=== PATIENT | female | born 1960 | race Caucasian/White ===

== ENCOUNTER 2017-01-18 14:26 | Inpatient (IN) | payer MEDICAID, SELFPAY ==
[2017-01-18] MEDS ORDERED: Sodium Chloride 0.9% 10 ML Syringe FLUSH PRN ×2 (14:38→16:30)
[2017-01-18] MEDS ORDERED: Sodium Chloride 0.9% 2.5 ML Syringe FLUSH PRN ×2 (14:38→16:30)
[2017-01-18] MEDS ORDERED: Albuterol/Ipratropium 3.0-0.5 MG/3 ML Neb Soln ONE (14:42)
[2017-01-18] MEDS ORDERED: Sodium Chloride 0.9% 500 ML IV SCH (14:45)
[2017-01-18] MEDS: Albuterol/Ipratropium 3.0-0.5 MG/3 ML Neb Soln NEB ONE (14:46)
--- NOTE | 2017-01-18 14:47 | EDM.PDOC ---
ED HISTORY OF PRESENT ILLNESS - General Chief Complaint: Respiratory Problem Stated Complaint: SHORTNESS OF BREATH Time Seen by Provider: 01/18/17 14:30 - History of Present Illness INITIAL COMMENTS - FREE TEXT/NARRATIVE: HISTORY AND PHYSICAL: History of present illness: The patient is a 56-year-old female with a history of left breast cancer with no surgical intervention who currently is on oral meds and has had a history of metastasis in the past but presents from the cancer center with shortness of breath. According to the patient she has a history of smoking in the past and has COPD for which she uses nebulizers at home. According to her family member she has been short of breath for "6 years". According to the patient she has been more short of breath the last several days and this morning she was unable to get her chair to the bathroom without feeling very breathless. The patient does her usual regimen of nebulizers and inhalers and has been compliant with that. Patient got her flu shot this year and she has a dry cough but there is no phlegm. She has not had a fever chills chest pain or abdominal pain no vomiting or diarrhea. Patient has a Port-A-Cath. The patient states she has had fluid buildup when she was first diagnosed with the breast cancer but has never had a thoracentesis. Patient denies any cardiac history. Patient denies any leg pain or swelling. The patient does not have any orthopnea because she sleeps in a lazy- boy on a regular basis and that has not changed recently. Patient has been eating and drinking normally and states compliance with her medications. Please note the patient did have a CBC and CMP done from the clinic earlier today and those tests will not be repeated. The patient does use oxygen at home at 2 L nasal cannula and she is instructed to increase it to 3 L if she's having pain. Patient states she was not increasing the oxygen despite being short of breath Review of systems: As per history of present illness and below otherwise all systems reviewed and negative. Past medical history: As per history of present illness and as reviewed below otherwise noncontributory. Surgical history: As per history of present illness and as reviewed below otherwise noncontributory. Social history: No reported history of drug or alcohol abuse. Family history: As per history of present illness and as reviewed below otherwise noncontributory. Physical exam: General: Well-developed nontoxic female who is speaking in full sentences a little breathless with any activity. Her O2 sat on room air was 90%. HEENT: Atraumatic, normocephalic, pupils reactive, negative for conjunctival pallor or scleral icterus, mucous membranes moist, throat clear, neck supple, nontender, trachea midline. Lungs: Tight air exchange in all mabry and very diminished breath sounds in the right base with expiratory wheezing but no work or breathing or sensory muscle use, Port-A-Cath is seen at the anterior upper left chest wall area, breath sounds equal bilaterally, chest nontender. Heart: S1S2, regular rhythm but slightly tachycardic rate of my evaluation, negative for clicks, rubs, or JVD. Abdomen: Soft, nondistended, nontender. Negative for masses or hepatosplenomegaly. Negative for costovertebral tenderness. Pelvis: Stable nontender. Genitourinary: Deferred. Rectal: Deferred. Extremities: Atraumatic, negative for cords or calf pain. Neurovascular unremarkable. No pedal edema or leg asymmetry Neuro: Awake, alert, oriented. Cranial nerves II through XII unremarkable. Cerebellum unremarkable. Motor and sensory unremarkable throughout. Exam nonfocal. Diagnostics: EKG CTA of the chest BNP INR troponin influenza swab Patient had a CBC and CMP done earlier today in the clinic and those results have been reviewed by me Therapeutics: Gentle IV fluids duo neb Please note when I discussed with the patient that we will be doing a CAT scan of her chest looking for a blood clot the patient states she had a CAT scan earlier today. There is no record of that in our system and the cancer Center states that they did not do a CAT scan. They also state that when she was down in the clinic earlier she would not wait to see the doctor. According to the patient she had a CAT scan done earlier today at [facility]. We will attempt to get those results 1530: CT scan results from the outside institution were obtained and a CT of the chest abdomen and pelvis with contrast were performed this indicates a large right pleural effusion which is increased in size since the comparison done in June of last year there is some compression atelectasis the right chest and pathologic mediastinal adenopathy is also large hiatal hernia and the nodular mass in the left breast appears to have increased in size. There is osseous metastasis demonstrated which is unchanged. The patient had a chest x- ray done yesterday which also demonstrate the right pleural effusion. I discussed this case due to the confusion of today's events with the oncologist in our cancer center, Dr. Correia. He states that he was going to followup with her about this the fusion but she would not wait to see him. I will discuss all of these testing results with her. 1555: Case was discussed with our hospitalist quality control microbiology supervisor Dr. Purcell; she accepts the patient for admission for COPD exacerbation and right pleural effusion. I also discussed this care plan with the patient and she is hesitant to be admitted here but agrees. I will give the patient a dose of steroids and she has continued to be very anxious in here about her disposition and when things are going to happen which she has been from the onset of her care here in the ED and as has been exemplified by her leaving the clinic prior to talking to the doctor. Impression: Dyspnea COPD exacerbation and enlarging right pleural effusion with h/o breast cancer Definitive disposition and diagnosis as appropriate pending reevaluation and review of above. - Related Data Allergies/ADRs: Allergies Allergy/AdvReac Type Severity Reaction Status Date / Time penicillin V Allergy UNKNOWN Verified 01/18/17 14:36 zolpidem tartrate Allergy Dizziness Verified 01/18/17 14:36 [From Ambien] Home Meds: Home Meds Albuterol [Proventil Neb Soln] 1 dose NEB DAILY 01/18/17 [History] Capecitabine [Xeloda] 3 tab PO BID 01/18/17 [History] Ferrous Sulfate 1 tab PO TID 01/18/17 [History] Flurazepam HCl 1 cap PO BEDTIME 01/18/17 [History] Fluticasone/Salmeterol [Advair 250-50 Diskus] 1 puff INH BID 01/18/17 [History] Furosemide 1 tab PO DAILY 01/18/17 [History] Hydrocodone/Acetaminophen [[place] 5-325] 1 - 2 tab PO Q4H PRN 01/18/17 [History] Lisinopril 1 tab PO DAILY 01/18/17 [History] Omeprazole 3 tab PO DAILY 01/18/17 [History] Ondansetron [Ondansetron ODT] 1 tab PO Q8H 01/18/17 [History] Sucralfate 1 tab PO QID 01/18/17 [History] Tiotropium [Spiriva HandiHaler] 2 puff INH DAILY 01/18/17 [History] fentaNYL [Fentanyl] 1 patch TD Q72H 01/18/17 [History] Past Medical History Respiratory History: Reports: COPD, SOB Immunologic History: Reports: Immunosuppression Oncologic (Cancer) History: Reports: Breast - Infectious Disease History Infectious Disease History: Reports: Chicken pox, Measles, Mumps Social & Family History - Family History Family Medical History: Noncontributory - Tobacco Use Smoking Status *Q: Former Smoker - Caffeine Use Caffeine Use: Reports: Coffee - Recreational Drug Use Recreational Drug Use: No ED ROS GENERAL - Review of Systems Review Of Systems: ROS reveals no pertinent complaints other than HPI. ED EXAM, GENERAL - Physical Exam Exam: See Below (See dictation) Course - Vital Signs Last Recorded V/S: Last Vital Signs Temp 36.4 C 01/18/17 15:37 Pulse 108 H 01/18/17 15:37 Resp 40 H 01/18/17 15:37 BP 145/100 H 01/18/17 15:37 Pulse Ox 94 L 01/18/17 15:37 - Orders/Labs/Meds Orders: Active Orders 24 hr Category Date Time Status Cardiac Monitoring [RC] . DIRECTED Care 01/18/17 14:38 Active EKG Documentation Completion [RC] STAT Care 01/18/17 14:36 Active Oxygen Therapy, ED [RC] ASDIRECTED Care 01/18/17 14:38 Active Pulse Oximetry [RC] ASDIRECTED Care 01/18/17 14:38 Active RT Aerosol Therapy [RC] ASDIRECTED Care 01/18/17 14:40 Active Ang Chest [CT] Stat Exams 01/18/17 14:38 Stop Req Sodium Chloride 0.9% [Normal Saline] 500 ml Med 01/18/17 14:45 Active IV STAT Sodium Chloride 0.9% [Saline Flush] Med 01/18/17 14:38 Active 10 ml FLUSH ASDIRECTED PRN Sodium Chloride 0.9% [Saline Flush] Med 01/18/17 14:38 Active 2.5 ml FLUSH ASDIRECTED PRN Saline Lock Insert [OM.PC] Stat Oth 01/18/17 14:38 Ordered Medication Orders Sodium Chloride (Normal Saline) 500 mls @ 999 mls/hr IV STAT HILDA Last Admin: 01/18/17 15:43 Dose: 80 mls/hr Sodium Chloride (Saline Flush) 10 ml FLUSH ASDIRECTED PRN PRN Reason: Keep Vein Open Sodium Chloride (Saline Flush) 2.5 ml FLUSH ASDIRECTED PRN PRN Reason: Keep Vein Open Labs: Laboratory Tests 01/18/17 01/18/17 01/18/17 Range/Units 14:50 14:50 14:50 INR 1.05 (0.86-1.11) Troponin I < 0.10 (0.0-0.29) NG/ML B-Natriuretic Peptide < 15 (<100) PG/ML Meds: Medications Generic Name Dose Route Start Last Admin Trade Name Freq PRN Reason Stop Dose Admin Sodium Chloride 500 mls @ 999 mls/hr 01/18/17 14:45 01/18/17 15:43 Normal Saline IV 80 mls/hr STAT HILDA Administration Sodium Chloride 10 ml 01/18/17 14:38 Saline Flush FLUSH ASDIRECTED PRN Keep Vein Open Sodium Chloride 2.5 ml 01/18/17 14:38 Saline Flush FLUSH ASDIRECTED PRN Keep Vein Open Discontinued Medications Generic Name Dose Route Start Last Admin Trade Name Freq PRN Reason Stop Dose Admin Albuterol/Ipratropium 3 ml 01/18/17 14:38 01/18/17 14:46 Duoneb 3.0-0.5 Mg/3 Ml NEB 01/18/17 14:39 3 ml ONETIME ONE Administration Albuterol/Ipratropium Confirm 01/18/17 14:42 01/18/17 15:27 Duoneb 3.0-0.5 Mg/3 Ml Administered 01/18/17 14:43 Not Given Dose 3 ml .ROUTE .STK-MED ONE Iopamidol 50 ml 01/18/17 15:21 Isovue-370 (76%) IV 01/18/17 15:22 ONETIME STA Departure - Departure Time of Disposition: 15:59 Disposition: Refer to Observation Condition: good Clinical Impression: COPD with exacerbation, Recurrent right pleural effusion Forms: ED Department Discharge - My Orders Last 24 Hours: My Active Orders 01/18/17 14:36 EKG Documentation Completion [RC] STAT 01/18/17 14:38 Cardiac Monitoring [RC] . DIRECTED Oxygen Therapy, ED [RC] ASDIRECTED Pulse Oximetry [RC] ASDIRECTED Ang Chest [CT] Stat Sodium Chloride 0.9% [Saline Flush] 10 ml FLUSH ASDIRECTED PRN Sodium Chloride 0.9% [Saline Flush] 2.5 ml FLUSH ASDIRECTED PRN Saline Lock Insert [OM.PC] Stat 01/18/17 14:40 RT Aerosol Therapy [RC] ASDIRECTED 01/18/17 14:45 Sodium Chloride 0.9% [Normal Saline] 500 ml IV STAT - Assessment/Plan Last 24 Hours: My Active Orders 01/18/17 14:36 EKG Documentation Completion [RC] STAT 01/18/17 14:38 Cardiac Monitoring [RC] . DIRECTED Oxygen Therapy, ED [RC] ASDIRECTED Pulse Oximetry [RC] ASDIRECTED Ang Chest [CT] Stat Sodium Chloride 0.9% [Saline Flush] 10 ml FLUSH ASDIRECTED PRN Sodium Chloride 0.9% [Saline Flush] 2.5 ml FLUSH ASDIRECTED PRN Saline Lock Insert [OM.PC] Stat 01/18/17 14:40 RT Aerosol Therapy [RC] ASDIRECTED 01/18/17 14:45 Sodium Chloride 0.9% [Normal Saline] 500 ml IV STAT
[2017-01-18] MEDS ORDERED: Iopamidol 755 MG/ML 50 ML Bottle IV STA (15:21)
[2017-01-18] MEDS ORDERED: methylPREDNISolone Sodium Succinate 125 MG/2 ML SDV IVPUSH ONE (15:59)
[2017-01-18] MEDS ORDERED: Morphine 10 MG/ML Syringe IVPUSH PRN (16:30)
[2017-01-18] MEDS ORDERED: Non-Formulary Medication 1 Each (Fentanyl [Fentanyl] 1 PATCH) TD SCH (16:45)
[2017-01-18] MEDS: Levofloxacin/Dextrose 5%-Water 750 MG in Premix Bag 1 BAG IV ONE ×2 (17:54→18:12)
[2017-01-18] MEDS: Sucralfate 1 GM Tab PO SCH (17:54)
[2017-01-18] MEDS: Ondansetron 8 MG Tab.DIS PO SCH (18:23)
[2017-01-18 18:36] LABS: CHLORIDE,CL 97 mmol/L (98-110); SODIUM,NA 139 mmol/L (136-146)
[2017-01-18] MEDS: fentaNYL 25 MCG/HR Transdermal Patch TRDERM SCH (19:25)
--- NOTE | 2017-01-18 19:26 | PCM.SN ---
- Free Text/Narrative Note: [id number]
[2017-01-18] MEDS: Fluticasone/Salmeterol 250-50 MCG Inhalation Powder 14/Diskus INH SCH (20:09)
[2017-01-18] MEDS: Mirtazapine 15 MG Tab PO SCH (20:20)
[2017-01-18] MEDS: CAPECITABINE PO SCH (20:31)
[2017-01-18] MEDS: methylPREDNISolone Sodium Succinate 40 MG/1 ML SDV IVPUSH SCH (21:06)
[2017-01-18] MEDS: Ferrous Sulfate 325 MG Tab PO SCH (21:06)
[2017-01-19] MEDS: Ondansetron 8 MG Tab.DIS PO SCH ×3 (00:05→16:43)
[2017-01-19] MEDS: Sucralfate 1 GM Tab PO SCH ×4 (00:05→20:15)
--- NOTE | 2017-01-19 02:05 | HP ---
DATE OF : 1960 PRIMARY CARE PHYSICIAN: None PCP CHIEF COMPLAINT: Shortness of breath. HISTORY OF PRESENT ILLNESS: The patient is a 56-year-old female, who presented to the emergency room because of wheezing and shortness of breath. Also, the patient has cough productive of white phlegm. She was diagnosed in 2009 with breast cancer on the left breast stage IV, with metastases of lung, liver. Since then, the patient is on chemotherapy. She did not undergo any surgery for breast cancer. PAST MEDICAL HISTORY: She has depression, anxiety, GERD, COPD, hypertension. PAST SURGICAL HISTORY: None. ALLERGIES: She is allergic to penicillin, she gets rash; and to morphine, she gets sick as she has adverse reaction to morphine; and also as per EMR, patient is allergic to Zolpidem. SOCIAL HISTORY: She does not smoke. She smoked only from the age of 26 to 40 for about 14 years, about 7 cigarettes a day. Alcohol use, none. Drug use, none. FAMILY HISTORY: The patient has multiple family members with cancer. Her aunt had breast cancer, bilateral breasts, and she had an uncle with stomach cancer. Her mom had liver cancer. REVIEW OF SYSTEMS: A 12-point review of systems is negative except as in history of present illness. PHYSICAL EXAMINATION: VITAL SIGNS: At admission her temperature 97.4, pulse 112, blood pressure 162/116, respiratory rate 26, pulse oximetry on 2 L was 83%. HEENT: Her head is atraumatic and normocephalic. Pupils are equal and reactive to light. NECK: Supple. No thyromegaly. No lymphadenopathy. LUNGS: There are wheezing on the right lung, decreased breath sounds rt and breath sounds could not be heard on the left side. HEART: S1, S2. Regular rhythm. Rate tachycardic. No murmur. ABDOMEN: Soft, nontender, positive bowel sounds. EXTREMITIES: No edema. NEUROLOGIC: The patient is alert, oriented x3. There are no gross focal neurologic deficits. Wbc :4.67, hemoglobin 14.5, hematocrit 48.2, platelets 161, INR 1.05, BNP less than 15, sodium 138, potassium 3.8, chloride 97 CO2 32 BUN 8 creatinine 0.7 troponin less than 0.1 LFTs normal EKG : sinus tachycardia @115, consider rt atrial enlargement DIAGNOSTIC DATA: The patient CT of the chest, abdomen and pelvis with contrast and does indicative large right pleural effusion which has increased in size since the comparison done in June of last year and there is some compression atelectasis of the rt side of the chest, pathologic mediastinal lymphadenopathy. Also, large hiatal hernia, and the nodular mass in the left breast appears to have increase in size.Atelectasis and scarring left lung base . There is also some metastasis demonstrated which is unchanged. The patient has a chest x-ray. ASSESSMENT: 1. Chronic obstructive pulmonary disease exacerbation. We will admit patient to medical telemetry. We will start patient on Solu-Medrol 40 mg IV q.6 hours. The patient received in the emergency room 125 mg of Solu-Medrol IV and we will continue patient with DuoNeb nebulizer treatment and put Advair Diskus one puffs inhalation b.i.d., hold sp[iriva as patient is getting duoneb 2. For hypertension, we will continue patient with lisinopril one tablet p.o. daily and we will follow up blood pressure. Currently, her blood pressure, which was very high in the ER, has decreased to 140/100. We will monitor blood pressure. 3. For anemia , currently patient Hb is 14.5 , will hold ferrous sulphate p.o. t.i.d., and will order ferritin level 4. For large pleural effusion on the right , the patient to have ultrasound thoracentesis tomorrow. Also for her pleural effusion, we will continue patient with furosemide p.o. daily. 5. The patient wanted to be DNR/DNI status and status was discussed with the patient and her and was placed in the chart. 6. For pain management, the patient will be continued on oxycodone one to two tablets p.o. q.4 hours p.r.n. Also for pain management, the patient will have Fentanyl one patch q.72 hours as per reconciliations. 7. For cancer, the patient will be continued with Xeloda 3 tablets p.o. b.i.d. 8. For hiatal hernia and acid reflux, the patient will be continued with sucralfate one tablet p.o. q.i.d. and with omeprazole 3 tables p.o. daily. 9. For DVT prophylaxis, we will put patient on Lovenox subcu. 10. For depression /anxiety - prozac 20 mg po daily ANTOPET / MODL /[id number] MTDD
[2017-01-19] MEDS: methylPREDNISolone Sodium Succinate 40 MG/1 ML SDV IVPUSH SCH ×4 (03:57→21:23)
[2017-01-19] MEDS: Ferrous Sulfate 325 MG Tab PO SCH (05:00)
[2017-01-19] MEDS ORDERED: Albuterol/Ipratropium 3.0-0.5 MG/3 ML Neb Soln NEB PRN (05:24)
[2017-01-19] MEDS ORDERED: Albuterol/Ipratropium 3.0-0.5 MG/3 ML Neb Soln ONE (05:26)
[2017-01-19 05:50] LABS: CHLORIDE,CL 100 mmol/L (98-110); SODIUM,NA 141 mmol/L (136-146)
[2017-01-19] MEDS: Omeprazole 20 MG Cap.CR PO SCH (07:55)
[2017-01-19] MEDS: Furosemide 20 MG Tab PO SCH (08:00)
[2017-01-19] MEDS: Lisinopril 10 MG Tab PO SCH (08:00)
[2017-01-19] MEDS: CAPECITABINE PO SCH ×2 (08:04→21:03)
[2017-01-19] MEDS ORDERED: Tiotropium Inhaler 18 MCG Inhalation Powder Cap Kit of 5 INH SCH (09:00)
[2017-01-19] MEDS: FLUoxetine 20 MG Cap PO SCH ×2 (09:10→20:32)
[2017-01-19] MEDS: ClonazePAM 0.5 MG Tab PO PRN ×2 (09:10→20:32)
--- NOTE | 2017-01-19 09:59 | CR ---
EXAMINATION: Portable chest radiograph. HISTORY: Pleural effusion. FINDINGS: The trachea is midline. The cardiac silhouette is not well characterized. There is a moderate to lar ge right-sided pleural effusion. There is left basilar atelectasis. There is a left-sided portacathe ter. Degenerative changes are noted within the left shoulder. IMPRESSION: 1. Moderate to large right-sided pleural effusion. 2. Left basilar atelectasis and/or infiltrate.
[2017-01-19] MEDS: Fluticasone/Salmeterol 250-50 MCG Inhalation Powder 14/Diskus INH SCH ×2 (10:01→20:12)
[2017-01-19] MEDS: Acetaminophen/HYDROcodone 325-5 MG Tab PO PRN (12:53)
--- NOTE | 2017-01-19 12:53 | US ---
EXAMINATION: Ultrasound guided right thoracentesis. HISTORY: Right pleural effusion Comparison chest radiograph from the same day. Technique/findings: The procedure, benefits and risks were discussed with the patient. Following agata candelario informed consent was obtained from the patient, under ultrasound guidance and utilizing 1% li docaine as local anesthesia the right pleural cavity was accessed using a 5 [place] one-step needle. Following access the catheter was placed into the effusion, 1100 cc of pleural effusion was drained . US images demonstrate a small residual pleural effusion. The patient tolerated the procedure well . IMPRESSION: Successful ultrasound guided right thoracentesis. Fluid was yellow and clear.
--- NOTE | 2017-01-19 14:41 | PCM.PN ---
- General Info Date of Service: 01/19/17 Admission Dx/Problem (Free Text): sob , wheezing Subjective Update: Patient anxious in am , sob , wheezing . She had thoracentesis today and about 1l of pleural fluid was removed , clear , rt hemithorax. Patient symptoms improved. radiology recommended patient had another thoracentesis done today . She was anxious in am and was started on Clonazepam 0.5 mg po TID prn for anxiety Functional Status: Reports: pain controlled - Review of Systems General: Reports: no symptoms HEENT: Reports: no symptoms Pulmonary: Reports: wheezing. Denies: sputum Cardiovascular: Reports: dyspnea on exertion, other (tachycardia) Gastrointestinal: Reports: No symptoms Genitourinary: Reports: no symptoms Musculoskeletal: Reports: no symptoms Skin: Reports: no symptoms Neurological: Reports: no symptoms Psychiatric: Reports: anxiety - Patient Data Vitals - most recent: Last Vital Signs Temp 97.8 F 01/19/17 11:36 Pulse 121 H 01/19/17 11:36 Resp 25 H 01/19/17 11:36 BP 144/99 H 01/19/17 11:36 Pulse Ox 93 L 01/19/17 11:36 Weight - most recent: 169 lb 11.2 oz I&O - last 24 hours: Intake & Output 01/18/17 01/19/17 01/19/17 22:59 06:59 14:59 Intake Total 350 Output Total 400 Balance -50 Lab Results last 24 hrs: Laboratory Results - last 24 hr 01/19/17 01/19/17 01/19/17 Range/Units 05:10 05:10 12:14 WBC 2.17 L (4.0-11.0) K/uL RBC 5.81 (4.30-5.90) M/uL Hgb 15.1 (12.0-16.0) g/dL Hct 48.9 H (36.0-46.0) % MCV 84.2 (80.0-98.0) fL MCH 26.0 L (27.0-32.0) pg MCHC 30.9 L (31.0-37.0) g/dL RDW Std Deviation 50.8 (28.0-62.0) fl RDW Coeff of George 17 H (11.0-15.0) % Plt Count 159 (150-400) K/uL MPV 9.90 (7.40-12.00) fL Neut % (Auto) 53.4 (48.0-80.0) % Lymph % (Auto) 43.8 H (16.0-40.0) % [place] % (Auto) 2.3 (0.0-15.0) % Eos % (Auto) 0.5 (0.0-7.0) % Baso % (Auto) 0.0 (0.0-1.5) % Neut # 1.2 L (1.4-5.7) K/uL Lymph # 1.0 (0.6-2.4) K/uL [place] # 0.1 (0.0-0.8) K/uL Eos # 0.0 (0.0-0.7) K/uL Baso # 0.0 (0.0-0.1) K/uL Nucleated RBC % 0.0 /100WBC Nucleated RBCs # 0 K/uL Sodium 141 (136-146) mmol/L Potassium 4.4 (3.5-5.1) mmol/L Chloride 100 (98-110) mmol/L Carbon Dioxide 28 (21-31) mmol/L BUN 8 (6.0-23.0) mg/dL Creatinine 0.8 (0.6-1.5) mg/dL Est Cr Clr Drug Dosing 62.10 mL/min Estimated GFR (MDRD) > 60.0 ml/min Glucose 141 H (60-110) mg/dL Calcium 9.4 (8.8-10.8) mg/dL Fluid Type PL Fluid Color YELLOW Fluid Appearance CLEAR Fluid WBC 0.19 K/uL Fluid RBC 0.00 M/uL Fluid Mononuclear Cell 97.9 % Fl Polymorphonucl Cell 2.1 % Fluid Total Protein 3.3 g/dL Fluid LDH 140 U/L Med Orders - Current: Current Medications Acetaminophen/Hydrocodone Bitart ([place] 325-5 Mg) 1 - 2 tab PO Q4H PRN PRN Reason: Pain Last Admin: 01/19/17 12:53 Dose: 1 tab Albuterol/Ipratropium (Duoneb 3.0-0.5 Mg/3 Ml) 3 ml NEB Q4HRRT PRN PRN Reason: Wheezing Clonazepam (Klonopin) 0.5 mg PO TID PRN PRN Reason: Anxiety Last Admin: 01/19/17 09:10 Dose: 0.5 mg Fentanyl (Duragesic) 25 mcg TRDERM Q72H [facility] Last Admin: 01/18/17 19:25 Dose: 25 mcg Fluoxetine HCl (Prozac) 20 mg PO BEDTIME [facility] Last Admin: 01/19/17 09:10 Dose: 20 mg Furosemide (Lasix) 20 mg PO DAILY [facility] Last Admin: 01/19/17 08:00 Dose: 20 mg Lisinopril (Prinivil) 10 mg PO DAILY [facility] Last Admin: 01/19/17 08:00 Dose: 10 mg Methylprednisolone Sodium Succinate (Solu-Medrol) 40 mg IVPUSH Q6H [facility] Last Admin: 01/19/17 09:10 Dose: 40 mg Mirtazapine (Remeron) 15 mg PO BEDTIME [facility] Last Admin: 01/18/17 20:20 Dose: 15 mg Miscellaneous Information (Remove Patch) 1 ea TRDERM Q72H [facility] Omeprazole (Omeprazole) 20 mg PO ACBREAKFAST [facility] Last Admin: 01/19/17 07:55 Dose: 20 mg Ondansetron HCl (Zofran Odt) 8 mg PO Q8H [facility] Last Admin: 01/19/17 07:55 Dose: 8 mg Capecitabine [Xeloda (] 3 Tab) 3 each PO BID [facility] Last Admin: 01/19/17 08:04 Dose: Not Given Flurazepam Hcl [ Flurazepam Hcl] 30 Mg 1 each PO BEDTIME [facility] Last Admin: 01/18/17 20:31 Dose: Not Given Fluticasone/Salmeterol (Advair Diskus 250-50) 1 puff INH BID [facility] Last Admin: 01/19/17 10:01 Dose: 1 disk Sodium Chloride (Saline Flush) 10 ml FLUSH ASDIRECTED PRN PRN Reason: Keep Vein Open Sodium Chloride (Saline Flush) 2.5 ml FLUSH ASDIRECTED PRN PRN Reason: Keep Vein Open Sodium Chloride (Saline Flush) 10 ml FLUSH ASDIRECTED PRN PRN Reason: Keep Vein Open Sodium Chloride (Saline Flush) 2.5 ml FLUSH ASDIRECTED PRN PRN Reason: Keep Vein Open Sucralfate (Carafate) 1 gm PO QID [facility] Last Admin: 01/19/17 11:34 Dose: 1 gm Discontinued Medications Albuterol/Ipratropium (Duoneb 3.0-0.5 Mg/3 Ml) 3 ml NEB ONETIME ONE Stop: 01/18/17 14:39 Last Admin: 01/18/17 14:46 Dose: 3 ml Albuterol/Ipratropium (Duoneb 3.0-0.5 Mg/3 Ml) Confirm Administered Dose 3 ml .ROUTE .STK-MED ONE Stop: 01/18/17 14:43 Last Admin: 01/18/17 15:27 Dose: Not Given Albuterol/Ipratropium (Duoneb 3.0-0.5 Mg/3 Ml) Confirm Administered Dose 3 ml .ROUTE .STK-MED ONE Stop: 01/19/17 05:27 Last Admin: 01/19/17 05:30 Dose: 3 ml Ferrous Sulfate (Ferrous Sulfate) 325 mg PO TID [facility] Last Admin: 01/19/17 05:00 Dose: 325 mg Sodium Chloride (Normal Saline) 500 mls @ 999 mls/hr IV STAT [facility] Last Admin: 01/18/17 15:43 Dose: 80 mls/hr Levofloxacin/Dextrose 750 mg/ (Premix) 150 mls @ 100 mls/hr IV ONETIME ONE Stop: 01/18/17 18:29 Last Admin: 01/18/17 18:12 Dose: Not Given Iopamidol (Isovue-370 (76%)) 50 ml IV ONETIME STA Stop: 01/18/17 15:22 Last Admin: 01/18/17 18:03 Dose: Not Given Methylprednisolone Sodium Succinate (Solu-Medrol) 125 mg IVPUSH ONETIME ONE Stop: 01/18/17 16:00 Last Admin: 01/18/17 16:21 Dose: 125 mg Morphine Sulfate (Morphine) 2 mg IVPUSH Q2H PRN PRN Reason: Pain (severe 7-10) Stop: 01/19/17 16:32 Non-Formulary Medication (Fentanyl [Fentanyl]) 1 patch TD Q72H [facility] Last Admin: 01/18/17 19:14 Dose: Not Given Tiotropium [place] (Spiriva Handihaler) 18 mcg INH DAILY [facility] - Exam Quality Assessment: supplemental oxygen General: alert, oriented, cooperative HEENT: Pupils equal, Pupils reactive Neck: supple, trachea midline, no JVD Lungs: Decreased breath sounds, Wheezing Cardiovascular: no murmurs, tachycardia (Female) Exam: Normal external exam Back Exam: normal inspection Extremities: no edema Physical Findings Comments:: left breast lump - Problem List & Annotations (1) Metastatic breast cancer SNOMED Code(s): 424355790 Code(s): C50.919 - MALIGNANT NEOPLASM OF UNSP SITE OF UNSPECIFIED FEMALE BREAST; C79.9 - SECONDARY MALIGNANT NEOPLASM OF UNSPECIFIED SITE Status: Acute Current Visit: Yes (2) COPD with exacerbation SNOMED Code(s): 347438034, 870360120 Code(s): J44.1 - CHRONIC OBSTRUCTIVE PULMONARY DISEASE W (ACUTE) EXACERBATION Status: Acute Current Visit: Yes (3) Recurrent right pleural effusion SNOMED Code(s): 14498893 Code(s): J90 - PLEURAL EFFUSION, NOT ELSEWHERE CLASSIFIED Status: Acute Current Visit: Yes (4) Depression with anxiety SNOMED Code(s): 473407639 Code(s): F41.8 - OTHER SPECIFIED ANXIETY DISORDERS Status: Acute Current Visit: Yes - Problem List Review Problem List Initiated/Reviewed/Updated: Yes - My Orders Last 24 Hours: My Active Orders 01/18/17 16:30 Patient Status [ADT] Routine Up ad Kathie [RC] ASDIRECTED VTE/DVT Education [RC] PER UNIT ROUTINE Vital Signs [RC] Q4H Sodium Chloride 0.9% [Saline Flush] 10 ml FLUSH ASDIRECTED PRN Sodium Chloride 0.9% [Saline Flush] 2.5 ml FLUSH ASDIRECTED PRN Peripheral IV Insertion Adult [OM.PC] Routine 01/18/17 16:31 Pulse Oximetry [RC] PRN Sequential Compression Device [OM.PC] Per Unit Routine 01/18/17 16:32 Antiembolic Devices [RC] PER UNIT ROUTINE 01/18/17 16:33 Acetaminophen/HYDROcodone [[place] 325-5 MG] 1 - 2 tab PO Q4H PRN 01/18/17 16:45 Ondansetron [Zofran ODT] 8 mg PO Q8H 01/18/17 17:06 Telemetry Monitoring [Cardiac Monitoring] [RC] Q8H 01/18/17 18:00 Sucralfate [Carafate] 1 gm PO QID 01/18/17 19:00 fentaNYL [Duragesic] 25 mcg TRDERM Q72H 01/18/17 19:07 Code Status [Resuscitation Status] Routine 01/18/17 21:00 Fluticasone/Salmeterol [Advair Diskus 250-50] 1 puff INH BID Mirtazapine [Remeron] 15 mg PO BEDTIME Patient's Own Medication [Ptom] 1 each PO BEDTIME Patient's Own Medication [Ptom] 3 each PO BID 01/18/17 22:00 methylPREDNISolone Sod Succ [Solu-MEDROL] 40 mg IVPUSH Q6H 01/18/17 Dinner Regular Diet [DIET] 01/19/17 05:10 FERRITIN [REF] Urgent 01/19/17 05:24 Albuterol/Ipratropium [DuoNeb 3.0-0.5 MG/3 ML] 3 ml NEB Q4HRRT PRN 01/19/17 05:25 RT Aerosol Therapy [RC] ASDIRECTED 01/19/17 07:30 Omeprazole 20 mg PO ACBREAKFAST 01/19/17 08:40 ClonazePAM [KlonoPIN] 0.5 mg PO TID PRN 01/19/17 09:00 FLUoxetine [PROzac] 20 mg PO BEDTIME Furosemide [Lasix] 20 mg PO DAILY Lisinopril [Prinivil] 10 mg PO DAILY 01/19/17 12:25 PH,PLEURAL FL [BF] Routine 01/20/17 05:11 BASIC METABOLIC PANEL,BMP [CHEM] AM CBC WITH AUTO DIFF [HEME] AM 01/21/17 05:11 BASIC METABOLIC PANEL,BMP [CHEM] AM CBC WITH AUTO DIFF [HEME] AM 01/21/17 19:00 Remove Patch 1 ea TRDERM Q72H 01/22/17 05:11 BASIC METABOLIC PANEL,BMP [CHEM] AM - Assessment Assessment:: A/p Copd exac - improved with steroids , neb treatment Rt pleural effusions - s/p removal of 1 l fluid today , f/up pleural fluid analysis for thoracentesis tomorrow DVT prof : scd Depression/anxiety - fluoxetine 20 mg po daily , remeron 15 mg po q hs , clonazepam 0.5 mg po TID prn Metastatic breast cancer - continue paleative chemotherapy , f/up oncology
[2017-01-19] MEDS: Mirtazapine 15 MG Tab PO SCH (20:32)
[2017-01-20] MEDS: Sucralfate 1 GM Tab PO SCH ×4 (00:30→17:50)
[2017-01-20] MEDS: Ondansetron 8 MG Tab.DIS PO SCH ×3 (01:05→16:18)
[2017-01-20] MEDS: methylPREDNISolone Sodium Succinate 40 MG/1 ML SDV IVPUSH SCH ×4 (04:45→22:19)
[2017-01-20 05:35] LABS: CHLORIDE,CL 102 mmol/L (98-110); SODIUM,NA 141 mmol/L (136-146)
[2017-01-20] MEDS: Acetaminophen/HYDROcodone 325-5 MG Tab PO PRN ×4 (05:46→20:41)
[2017-01-20] MEDS: Omeprazole 20 MG Cap.CR PO SCH (07:05)
[2017-01-20] MEDS: Fluticasone/Salmeterol 250-50 MCG Inhalation Powder 14/Diskus INH SCH ×2 (08:44→20:41)
[2017-01-20] MEDS: Furosemide 20 MG Tab PO SCH (09:10)
[2017-01-20] MEDS: Lisinopril 10 MG Tab PO SCH (09:10)
[2017-01-20] MEDS: CAPECITABINE PO SCH ×2 (09:11→21:18)
[2017-01-20] MEDS: Diltiazem 120 MG Cap.CD PO SCH (12:28)
[2017-01-20] MEDS: Sodium Chloride 0.45% 1,000 ML IV SCH (12:31)
--- NOTE | 2017-01-20 14:29 | CONS ---
DATE OF CONSULTATION: DATE OF : 1960 PRIMARY CARE PHYSICIAN: None PCP REASON FOR CONSULTATION: Tachycardia. HISTORY OF PRESENT ILLNESS: A 56-year-old female with history of metastatic breast cancer, stage IV, metastatic to the lungs and liver, came into emergency room because of shortness of breath and wheezing. She also has cough, productive cough with white phlegm, no fever, no chest pain, and then she was treated for COPD with exacerbation with a steroid IV. She also was found to have the large right pleural effusion. She got thoracentesis yesterday and it was yellow clear and fluid was taken out 1 L. The patient stated that after tapping she started feeling better. However, when she walks around she still is getting slight short of breath with tachycardia, no chest pain afterwards. There was no chest x-ray, it was done after tapping. She has a history of former smoker. PAST MEDICAL HISTORY: Including COPD, hypertension, GERD, anxiety, and depression. PAST SURGICAL HISTORY: None. She has been getting chemotherapy for breast cancer. ALLERGIES: She is allergic to penicillin and also morphine. SOCIAL HISTORY: Former smoker. Denies alcohol use. No drug use. FAMILY HISTORY: Multiple family history with cancer. REVIEW OF SYSTEMS: A 12-point review of systems is negative except for history of present illness indicated. PHYSICAL EXAMINATION: VITAL SIGNS: Blood pressure 131/88, heart rate of 100 to 110, sinus tachycardia, temperature 36.8, respirations 20, O2 saturation 95% on 3 L. HEENT: Not pale, no jaundice, no JVD. HEART: Normal S1 and S2. Tachycardia. Regular rate and rhythm. LUNGS: Decreased breath sounds bilaterally with expiratory wheezing. ABDOMEN: Soft, nontender. Bowel sounds present. No hepatosplenomegaly. EXTREMITIES: Legs, trace edema. LABORATORY INVESTIGATION: CBC shows WBC 5, hematocrit 42, hemoglobin 13, platelet 156, INR 1.05, sodium 141, potassium 4.2, chloride 102, bicarbonate 30, BUN 16, creatinine 0.8. GFR more than 60. Calcium 8.5. EKG show sinus tachycardia with a right bundle branch pattern. No previous EKG to compare. ASSESSMENT AND PLAN: This is a 56-year-old female with history of metastatic breast cancer. She presented with shortness of breath and found to have possible chronic obstructive pulmonary disease with acute exacerbation, and been treated for chronic obstructive pulmonary disease exacerbation. The tachycardia is sinus tachycardia. On EKG it showed right bundle branch block pattern that could the RV strain. Given the history of breast cancer, I would definitely do a CT angiogram to rule out PE and also I am going to do a chest x-ray after tapping to rule out any pneumothorax and pneumonia and the pleural fluid has been taken off for 1 L, that would be the reason why she was tachycardic as well. LEE ANN / [place] /[id number]
--- NOTE | 2017-01-20 16:33 | CT ---
EXAMINATION: CTA chest HISTORY: Shortness of breath COMPARISON: Chest radiograph from the same day TECHNIQUE: Axial CT images obtained through the chest following the administration of 50 mL of Isovu e-370. Coronal and sagittal reconstructions obtained. FINDINGS: There is a 1.6 x 2.8 cm mass within the left breast at the approximate 5:00 position. Ther e is a moderate right pneumothorax with a small underlying pleural effusion. There is atelectasis al so noted within the lungs which heterogeneously enhances. There is a likely component of pulmonary m etastatic disease. The atelectasis within the right lung base has the appearance of rounded atelecta sis. Pleural scarring is noted within the left lung base. There is a moderate hiatal hernia. Mediast inal lymphadenopathy is noted. There are a few tubular nodular areas within the left upper lobe yamilet uring 1.9 x 0.8 cm. The heart is normal in size without a pericardial effusion. Thoracic aorta yahaira l caliber. Main and central pulmonary arteries are patent without evidence of a pulmonary embolism. There is a borderline 1.1 cm lymph node adjacent to the inferior thoracic aorta. Several hypodense masses are noted within the liver consistent with metastatic disease. Cholelithias is. Remaining images of the upper abdomen appear grossly normal. Humerus thoracic, sternal, scapular, and ribs sclerotic lesions are noted consistent with metastatic disease. IMPRESSION: 1. Moderate right hydropneumothorax. No midline shift. 2. Scarring and likely metastatic disease is noted within the right lung parenchyma, this was unable to be fully expanded with a thoracentesis and may represent underlying restrictive lung disease. 3. Left breast mass with likely pulmonary, hepatic, and osseous metastatic disease. 4. Moderate hiatal hernia. 5. Cholelithiasis.
[2017-01-20] MEDS ORDERED: Morphine 4 MG/ML Syringe ONE (18:55)
[2017-01-20] MEDS ORDERED: Lidocaine 1% 50 ML MDV ONE (18:58)
[2017-01-20] MEDS ORDERED: Bupivacaine 0.5% 10 ML SDV ONE (18:58)
--- NOTE | 2017-01-20 19:00 | PCM.CONS ---
H&P History of Present Illness - General Date of Service: 01/20/17 Admit Problem/Dx: sob , wheezing Source of Information: Patient, Provider History Limitations: Reports: Respiratory distress - History of Present Illness Initial Comments - Free Text/Narative: patient is a 56-year-old female, with stage IV are soma breast. She underwent thoracentesis yesterday and again today. Today she developed a right-sided pneumothorax following her procedure. Dr. Ch recommended that he place a small chest tube for evacuation of this. The patient refused to have it done, stating it would hurt too much. She is now becoming more short of breath, with increasing pneumothorax and will require chest tube placement. Onset of Symptoms: Reports: today Duration of Symptoms: Reports: Hour(s):, Getting worse Location: Reports: chest Quality: Reports: Pressure Severity: moderate Improves with: Reports: None Worsens with: Reports: None Associated Symptoms: Reports: shortness of breath Bilateral Leg Pain Score (Numeric/FACES): 9 - Related Data Allergies/Adverse Reactions: Allergies Allergy/AdvReac Type Severity Reaction Status Date / Time penicillin V Allergy UNKNOWN Verified 01/18/17 14:36 zolpidem tartrate Allergy Dizziness Verified 01/18/17 14:36 [From Ambien] Home Medications: Home Meds Albuterol [Proventil Neb Soln] 1 dose NEB DAILY 01/18/17 [History] Capecitabine [Xeloda] 1,500 mg PO BID 01/18/17 [History] Ferrous Sulfate 324 mg PO TID 01/18/17 [History] Flurazepam HCl 30 mg PO BEDTIME 01/18/17 [History] Fluticasone/Salmeterol [Advair 250-50 Diskus] 1 puff INH BID 01/18/17 [History] Furosemide 20 mg PO DAILY 01/18/17 [History] Hydrocodone/Acetaminophen [[place] 5-325] 1 - 2 tab PO Q4H PRN 01/18/17 [History] Lisinopril 10 mg PO DAILY 01/18/17 [History] Omeprazole 60 mg PO DAILY 01/18/17 [History] Ondansetron [Ondansetron ODT] 8 mg PO Q8H 01/18/17 [History] Sucralfate 1 gm PO QID 01/18/17 [History] Tiotropium [Spiriva HandiHaler] 18 mcg INH DAILY 01/18/17 [History] fentaNYL [Fentanyl] 1 patch TD Q72H 01/18/17 [History] Past Medical History Respiratory History: Reports: COPD, SOB Immunologic History: Reports: Immunosuppression Oncologic (Cancer) History: Reports: Breast - Infectious Disease History Infectious Disease History: Reports: Chicken pox, Measles, Mumps Social & Family History - Family History Family Medical History: Noncontributory - Tobacco Use Smoking Status *Q: Former Smoker - Caffeine Use Caffeine Use: Reports: Coffee - Recreational Drug Use Recreational Drug Use: No H&P Review of Systems - Review of Systems: Review Of Systems: See Below General: Denies: fever, chills HEENT: Reports: no symptoms Pulmonary: Reports: shortness of breath, wheezing, pleuritic chest pain Cardiovascular: Reports: no symptoms Gastrointestinal: Reports: No symptoms Genitourinary: Reports: no symptoms Musculoskeletal: Reports: no symptoms Skin: Reports: no symptoms Psychiatric: Reports: anxiety Neurological: Reports: no symptoms Hematologic/Lymphatic: Reports: no symptoms Immunologic: Reports: no symptoms Exam - Exam Exam: See Below - Vital Signs Vital Signs: Last Vital Signs Temp 98.6 F 01/20/17 18:13 Pulse 113 H 01/20/17 18:13 Resp 20 01/20/17 18:13 BP 125/84 01/20/17 18:13 Pulse Ox 93 L 01/20/17 18:13 Weight: 169 lb 11.2 oz - Exam Quality Assessment: supplemental oxygen General: alert, oriented, cooperative, moderate distress HEENT: Conjunctiva clear, EACs clear. No: Scleral icterus Neck: supple, trachea midline Lungs: Decreased breath sounds (No breath sounds on right.), Wheezing (left. No sounds on right.) Cardiovascular: regular rate, regular rhythm, tachycardia. No: systolic murmur , diastolic murmur Abdomen: normal bowel sounds, soft Rectal (Female) Exam: Deferred Back Exam: normal inspection Extremities: normal inspection Skin: warm, dry, intact Neurological: cranial nerves intact Neuro Extensive - Mental Status: alert, oriented x3, normal mood/affect Psychiatric: alert, anxious - Patient Data Lab Results last 24 hrs: Laboratory Results - last 24 hr 01/19/17 01/20/17 01/20/17 Range/Units 05:10 04:28 04:28 WBC 5.75 (4.0-11.0) K/uL RBC 5.03 (4.30-5.90) M/uL Hgb 13.0 (12.0-16.0) g/dL Hct 42.8 (36.0-46.0) % MCV 85.1 (80.0-98.0) fL MCH 25.8 L (27.0-32.0) pg MCHC 30.4 L (31.0-37.0) g/dL RDW Std Deviation 52.9 (28.0-62.0) fl RDW Coeff of George 17 H (11.0-15.0) % Plt Count 156 (150-400) K/uL MPV 10.30 (7.40-12.00) fL Neut % (Auto) 79.2 (48.0-80.0) % Lymph % (Auto) 16.3 (16.0-40.0) % [place] % (Auto) 4.5 (0.0-15.0) % Eos % (Auto) 0.0 (0.0-7.0) % Baso % (Auto) 0.0 (0.0-1.5) % Neut # 4.6 (1.4-5.7) K/uL Lymph # 0.9 (0.6-2.4) K/uL [place] # 0.3 (0.0-0.8) K/uL Eos # 0.0 (0.0-0.7) K/uL Baso # 0.0 (0.0-0.1) K/uL Nucleated RBC % 0.0 /100WBC Nucleated RBCs # 0 K/uL Sodium 141 (136-146) mmol/L Potassium 4.2 (3.5-5.1) mmol/L Chloride 102 (98-110) mmol/L Carbon Dioxide 30 (21-31) mmol/L BUN 16 (6.0-23.0) mg/dL Creatinine 0.8 (0.6-1.5) mg/dL Est Cr Clr Drug Dosing 62.10 mL/min Estimated GFR (MDRD) > 60.0 ml/min Glucose 139 H (60-110) mg/dL Calcium 8.5 L (8.8-10.8) mg/dL Ferritin 91 (11-307) ng/mL Result Diagrams: 01/20/17 04:28 01/20/17 04:28 Consult PN Assessment/Plan Procedures: Procedures ASSAY OF MAGNESIUM (08/03/16) CARCINOEMBRYONIC ANTIGEN (08/03/16) CHEST X-RAY 2VW FRONTAL&LATL (12/14/16) COMPLETE CBC W/AUTO DIFF WBC (12/14/16) COMPREHEN METABOLIC PANEL (12/14/16) DRAW BLOOD OFF VENOUS DEVICE (08/03/16) IMMUNOASSAY TUMOR CA 15-3 (08/03/16) IRRIG DRUG DELIVERY DEVICE (04/06/16) ROUTINE VENIPUNCTURE (12/14/16) THER/PROPH/DIAG IV INF INIT (12/14/16) (1) Iatrogenic pneumothorax SNOMED Code(s): 582867403 Code(s): J95.811 - POSTPROCEDURAL PNEUMOTHORAX Priority: High Current Visit: Yes Comment: Following thoracentesis. Right side. (2) Pneumothorax, postprocedural SNOMED Code(s): 510801292 Code(s): J95.811 - POSTPROCEDURAL PNEUMOTHORAX Priority: High Current Visit: Yes (3) COPD with exacerbation SNOMED Code(s): 421014209, 733288998 Code(s): J44.1 - CHRONIC OBSTRUCTIVE PULMONARY DISEASE W (ACUTE) EXACERBATION Priority: Medium Current Visit: Yes (4) Depression with anxiety SNOMED Code(s): 668896316 Code(s): F41.8 - OTHER SPECIFIED ANXIETY DISORDERS Priority: Medium Current Visit: Yes (5) Metastatic breast cancer SNOMED Code(s): 092593957 Code(s): C50.919 - MALIGNANT NEOPLASM OF UNSP SITE OF UNSPECIFIED FEMALE BREAST; C79.9 - SECONDARY MALIGNANT NEOPLASM OF UNSPECIFIED SITE Priority: Medium Current Visit: Yes (6) Recurrent right pleural effusion SNOMED Code(s): 61537813 Code(s): J90 - PLEURAL EFFUSION, NOT ELSEWHERE CLASSIFIED Priority: Medium Current Visit: Yes Problem List Initiated/Reviewed/Updated: Yes Plan: Right closed tube thoracostomy. The operative procedure, along with the risks, including,but not limited to bleeding, infection, reaction to anesthesia, post chest tube pain, failure of the lung to expand and the possibility of requiring surgery have been reviewed with the patient and her . Questions have been answered. They state they understand and now agree to proceed
--- NOTE | 2017-01-20 19:08 | PCM.PN ---
- General Info Date of Service: 01/20/17 Admission Dx/Problem (Free Text): SOB Subjective Update: Patient tachycardic in 120 in am at rest, HR 150 withminimal activities . Cardiology consult was called . Echo was ordered. For IR today , she was found to have moderate pneumothorax . Patient refused chest tube by IR as she was very scared of the procedure which she had before and was very painful. Ct angiogram post procedure showed moderate pneumothorax , mets to liver and moderate hiatal hernia, left breast tumor. Functional Status: Reports: pain controlled - Review of Systems General: Reports: no symptoms HEENT: Reports: no symptoms Pulmonary: Reports: shortness of breath, wheezing Cardiovascular: Reports: no symptoms Gastrointestinal: Reports: No symptoms Genitourinary: Reports: no symptoms Musculoskeletal: Reports: no symptoms Skin: Reports: no symptoms Neurological: Reports: no symptoms Psychiatric: Reports: anxiety - Patient Data Vitals - most recent: Last Vital Signs Temp 98.6 F 01/20/17 18:13 Pulse 113 H 01/20/17 18:13 Resp 20 01/20/17 18:13 BP 125/84 01/20/17 18:13 Pulse Ox 93 L 01/20/17 18:13 Weight - most recent: 169 lb 11.2 oz I&O - last 24 hours: Intake & Output 01/20/17 01/20/17 01/20/17 06:59 14:59 22:59 Intake Total 200 1030 Output Total 400 850 Balance -200 180 Lab Results last 24 hrs: Laboratory Results - last 24 hr 01/19/17 01/20/17 01/20/17 Range/Units 05:10 04:28 04:28 WBC 5.75 (4.0-11.0) K/uL RBC 5.03 (4.30-5.90) M/uL Hgb 13.0 (12.0-16.0) g/dL Hct 42.8 (36.0-46.0) % MCV 85.1 (80.0-98.0) fL MCH 25.8 L (27.0-32.0) pg MCHC 30.4 L (31.0-37.0) g/dL RDW Std Deviation 52.9 (28.0-62.0) fl RDW Coeff of George 17 H (11.0-15.0) % Plt Count 156 (150-400) K/uL MPV 10.30 (7.40-12.00) fL Neut % (Auto) 79.2 (48.0-80.0) % Lymph % (Auto) 16.3 (16.0-40.0) % [place] % (Auto) 4.5 (0.0-15.0) % Eos % (Auto) 0.0 (0.0-7.0) % Baso % (Auto) 0.0 (0.0-1.5) % Neut # 4.6 (1.4-5.7) K/uL Lymph # 0.9 (0.6-2.4) K/uL [place] # 0.3 (0.0-0.8) K/uL Eos # 0.0 (0.0-0.7) K/uL Baso # 0.0 (0.0-0.1) K/uL Nucleated RBC % 0.0 /100WBC Nucleated RBCs # 0 K/uL Sodium 141 (136-146) mmol/L Potassium 4.2 (3.5-5.1) mmol/L Chloride 102 (98-110) mmol/L Carbon Dioxide 30 (21-31) mmol/L BUN 16 (6.0-23.0) mg/dL Creatinine 0.8 (0.6-1.5) mg/dL Est Cr Clr Drug Dosing 62.10 mL/min Estimated GFR (MDRD) > 60.0 ml/min Glucose 139 H (60-110) mg/dL Calcium 8.5 L (8.8-10.8) mg/dL Ferritin 91 (11-307) ng/mL Med Orders - Current: Current Medications Acetaminophen/Hydrocodone Bitart ([place] 325-5 Mg) 1 - 2 tab PO Q4H PRN PRN Reason: Pain Last Admin: 01/20/17 16:18 Dose: 1 tab Albuterol/Ipratropium (Duoneb 3.0-0.5 Mg/3 Ml) 3 ml NEB Q4HRRT PRN PRN Reason: Wheezing Last Admin: 01/19/17 16:40 Dose: 3 ml Clonazepam (Klonopin) 0.5 mg PO TID PRN PRN Reason: Anxiety Last Admin: 01/19/17 20:32 Dose: 0.5 mg Diltiazem HCl (Cardizem Cd) 120 mg PO DAILY COUNT INCLUDES THE [facility] Last Admin: 01/20/17 12:28 Dose: 120 mg Fentanyl (Duragesic) 25 mcg TRDERM Q72H COUNT INCLUDES THE [facility] Last Admin: 01/18/17 19:25 Dose: 25 mcg Fluoxetine HCl (Prozac) 20 mg PO BEDTIME HILDA Last Admin: 01/19/17 20:32 Dose: 20 mg Furosemide (Lasix) 20 mg PO DAILY COUNT INCLUDES THE [facility] Last Admin: 01/20/17 09:10 Dose: 20 mg Sodium Chloride (Sodium Chloride 0.45%) 1,000 mls @ 75 mls/hr IV ASDIRECTED COUNT INCLUDES THE [facility] Last Admin: 01/20/17 12:31 Dose: 75 mls/hr Lisinopril (Prinivil) 10 mg PO DAILY COUNT INCLUDES THE [facility] Last Admin: 01/20/17 09:10 Dose: 10 mg Methylprednisolone Sodium Succinate (Solu-Medrol) 40 mg IVPUSH Q6H COUNT INCLUDES THE [facility] Last Admin: 01/20/17 16:20 Dose: 40 mg Mirtazapine (Remeron) 15 mg PO BEDTIME COUNT INCLUDES THE [facility] Last Admin: 01/19/17 20:32 Dose: 15 mg Miscellaneous Information (Remove Patch) 1 ea TRDERM Q72H COUNT INCLUDES THE [facility] Omeprazole (Omeprazole) 20 mg PO ACBREAKFAST COUNT INCLUDES THE [facility] Last Admin: 01/20/17 07:05 Dose: 20 mg Ondansetron HCl (Zofran Odt) 8 mg PO Q8H COUNT INCLUDES THE [facility] Last Admin: 01/20/17 16:18 Dose: 8 mg Capecitabine [Xeloda (] 3 Tab) 3 each PO BID COUNT INCLUDES THE [facility] Last Admin: 01/20/17 09:11 Dose: Not Given Flurazepam Hcl [ Flurazepam Hcl] 30 Mg 1 each PO BEDTIME COUNT INCLUDES THE [facility] Last Admin: 01/19/17 21:04 Dose: Not Given Fluticasone/Salmeterol (Advair Diskus 250-50) 1 puff INH BID COUNT INCLUDES THE [facility] Last Admin: 01/20/17 08:44 Dose: 1 disk Sodium Chloride (Saline Flush) 10 ml FLUSH ASDIRECTED PRN PRN Reason: Keep Vein Open Sodium Chloride (Saline Flush) 2.5 ml FLUSH ASDIRECTED PRN PRN Reason: Keep Vein Open Sodium Chloride (Saline Flush) 10 ml FLUSH ASDIRECTED PRN PRN Reason: Keep Vein Open Sodium Chloride (Saline Flush) 2.5 ml FLUSH ASDIRECTED PRN PRN Reason: Keep Vein Open Sucralfate (Carafate) 1 gm PO QID COUNT INCLUDES THE [facility] Last Admin: 01/20/17 17:50 Dose: 1 gm Discontinued Medications Albuterol/Ipratropium (Duoneb 3.0-0.5 Mg/3 Ml) 3 ml NEB ONETIME ONE Stop: 01/18/17 14:39 Last Admin: 01/18/17 14:46 Dose: 3 ml Albuterol/Ipratropium (Duoneb 3.0-0.5 Mg/3 Ml) Confirm Administered Dose 3 ml .ROUTE .STK-MED ONE Stop: 01/18/17 14:43 Last Admin: 01/18/17 15:27 Dose: Not Given Albuterol/Ipratropium (Duoneb 3.0-0.5 Mg/3 Ml) Confirm Administered Dose 3 ml .ROUTE .STK-MED ONE Stop: 01/19/17 05:27 Last Admin: 01/19/17 05:30 Dose: 3 ml Ferrous Sulfate (Ferrous Sulfate) 325 mg PO TID HILDA Last Admin: 01/19/17 05:00 Dose: 325 mg Sodium Chloride (Normal Saline) 500 mls @ 999 mls/hr IV STAT COUNT INCLUDES THE [facility] Last Admin: 01/18/17 15:43 Dose: 80 mls/hr Levofloxacin/Dextrose 750 mg/ (Premix) 150 mls @ 100 mls/hr IV ONETIME ONE Stop: 01/18/17 18:29 Last Admin: 01/18/17 18:12 Dose: Not Given Iopamidol (Isovue-370 (76%)) 50 ml IV ONETIME STA Stop: 01/18/17 15:22 Last Admin: 01/18/17 18:03 Dose: Not Given Methylprednisolone Sodium Succinate (Solu-Medrol) 125 mg IVPUSH ONETIME ONE Stop: 01/18/17 16:00 Last Admin: 01/18/17 16:21 Dose: 125 mg Morphine Sulfate (Morphine) 2 mg IVPUSH Q2H PRN PRN Reason: Pain (severe 7-10) Stop: 01/19/17 16:32 Morphine Sulfate (Morphine) Confirm Administered Dose 4 mg .ROUTE .STK-MED ONE Stop: 01/20/17 18:56 Non-Formulary Medication (Fentanyl [Fentanyl]) 1 patch TD Q72H COUNT INCLUDES THE [facility] Last Admin: 01/18/17 19:14 Dose: Not Given Tiotropium [place] (Spiriva Handihaler) 18 mcg INH DAILY HILDA - Exam Quality Assessment: supplemental oxygen (3L) General: alert, oriented HEENT: Pupils equal, Pupils reactive, EOMI, Mucous membr. moist/pink Neck: supple Lungs: Clear to auscultation, Decreased breath sounds, Wheezing (decreased) Cardiovascular: regular rate, regular rhythm Abdomen: bowel sounds present, soft, no tenderness, no distension Extremities: no edema Skin: warm, dry, intact Wound/Incisions: healing well Neurological: no new focal deficit Psy/Mental Status: alert, normal affect, normal mood EKG INTERPRETATION QRS: RBBB - Problem List & Annotations (1) Metastatic breast cancer SNOMED Code(s): 268166407 Code(s): C50.919 - MALIGNANT NEOPLASM OF UNSP SITE OF UNSPECIFIED FEMALE BREAST; C79.9 - SECONDARY MALIGNANT NEOPLASM OF UNSPECIFIED SITE Status: Acute Current Visit: Yes (2) COPD with exacerbation SNOMED Code(s): 393865618, 412264069 Code(s): J44.1 - CHRONIC OBSTRUCTIVE PULMONARY DISEASE W (ACUTE) EXACERBATION Status: Acute Current Visit: Yes (3) Recurrent right pleural effusion SNOMED Code(s): 31069104 Code(s): J90 - PLEURAL EFFUSION, NOT ELSEWHERE CLASSIFIED Status: Acute Current Visit: Yes (4) Depression with anxiety SNOMED Code(s): 720529650 Code(s): F41.8 - OTHER SPECIFIED ANXIETY DISORDERS Status: Acute Current Visit: Yes - Problem List Review Problem List Initiated/Reviewed/Updated: Yes - My Orders Last 24 Hours: My Active Orders 01/20/17 08:00 Thoracentesis W/ US Guide [US] Urgent 01/20/17 12:14 EKG 12 Lead [EKG Documentation Completion] [RC] STAT 01/20/17 12:17 Echo 2D wo Cont [US] Urgent 01/20/17 12:20 Communication Order [RC] ROUTINE 01/20/17 12:30 Diltiazem [Cardizem CD] 120 mg PO DAILY Sodium Chloride 0.45% 1,000 ml IV ASDIRECTED 01/20/17 18:34 Admission Status [Patient Status] [ADT] Routine 01/21/17 05:11 BASIC METABOLIC PANEL,BMP [CHEM] AM CBC WITH AUTO DIFF [HEME] AM 01/21/17 19:00 Remove Patch 1 ea TRDERM Q72H 01/22/17 05:11 BASIC METABOLIC PANEL,BMP [CHEM] AM - Assessment Assessment:: A/p Copd exac - improved with steroids ,will taper down steroids , neb treatment Rt pleural effusions - s/p removal of 1 l fluid yesterday , clear , no infection , s/p removal about 300 cc fluid today RT moderate pneumothorax - for OR today to have chest tube. Patient agreed. DVT prof : scd Depression/anxiety - fluoxetine 20 mg po daily , remeron 15 mg po q hs , clonazepam 0.5 mg po TID prn Metastatic breast cancer - continue paleative chemotherapy , f/up oncology sinus tachycardia - no PE , secondary to pneumothorax
--- NOTE | 2017-01-20 20:13 | PCM.OPNOTE ---
- General Post-Op/Procedure Note Date of Surgery/Procedure: 01/20/17 Pre Op Diagnosis: Right iatrogenic pneumothorax following thoracentesis Post-Op Diagnosis: Same Anesthesia Technique: Local Primary Surgeon: Paul Tidwell Cutter In: Shy Srivastava EBL in mLs: 5 Condition: Fair Free Text/Narrative:: Intake & Output 01/20/17 01/20/17 01/21/17 11:59 19:59 03:59 Intake Total 200 1030 Output Total 400 850 Balance -200 180 Dictation [id number]
[2017-01-20] MEDS: FLUoxetine 20 MG Cap PO SCH (20:45)
[2017-01-20] MEDS: Mirtazapine 15 MG Tab PO SCH (20:46)
[2017-01-20] MEDS: HYDROmorphone 2 MG/ML Syringe IVPUSH PRN (22:27)
[2017-01-21] MEDS: Sucralfate 1 GM Tab PO SCH ×5 (00:14→23:32)
[2017-01-21] MEDS: Acetaminophen/HYDROcodone 325-5 MG Tab PO PRN ×2 (02:32→10:44)
[2017-01-21] MEDS: methylPREDNISolone Sodium Succinate 40 MG/1 ML SDV IVPUSH SCH ×4 (05:17→21:04)
[2017-01-21] MEDS: Sodium Chloride 0.45% 1,000 ML IV SCH ×2 (05:19→18:28)
[2017-01-21 06:47] LABS: CHLORIDE,CL 103 mmol/L (98-110); SODIUM,NA 138 mmol/L (136-146)
[2017-01-21] MEDS: Omeprazole 20 MG Cap.CR PO SCH (06:54)
[2017-01-21] MEDS: HYDROmorphone 2 MG/ML Syringe IVPUSH PRN ×3 (07:26→19:11)
[2017-01-21] MEDS: Fluticasone/Salmeterol 250-50 MCG Inhalation Powder 14/Diskus INH SCH ×2 (08:42→20:16)
--- NOTE | 2017-01-21 09:18 | PCM.SURGPN ---
- General Info Date of Service: 01/21/17 Date of Surgery/Procedure: 01/20/17 POD#: 1 Post-Op Diagnosis: Iatrogenic pneumothorax Functional Status: Reports: pain controlled, tolerating diet, ambulating, urinating - Review of Systems General: Denies: fever, weakness, fatigue, malaise HEENT: Reports: no symptoms Pulmonary: Reports: shortness of breath (chronic, secondary to COPD), pleuritic chest pain (chest tube), wheezing Cardiovascular: Reports: chest pain (chest tube), dyspnea on exertion Gastrointestinal: Denies: Abdominal pain, Constipation, Decreased appetite, Difficulty swallowing Genitourinary: Reports: no symptoms Musculoskeletal: Reports: no symptoms Skin: Reports: no symptoms Neurological: Reports: no symptoms Psychiatric: Reports: no symptoms - Patient Data Vitals - most recent: Last Vital Signs Temp 97.3 F 01/21/17 08:29 Pulse 111 H 01/21/17 08:29 Resp 20 01/21/17 08:29 BP 138/90 01/21/17 08:29 Pulse Ox 93 L 01/21/17 08:29 Weight - most recent: 169 lb 11.2 oz I&O - last 24 hours: Intake & Output 01/20/17 01/21/17 01/21/17 19:59 03:59 11:59 Intake Total 1030 1250 Output Total 850 1045 Balance 180 205 Imaging Impressions - last 24 hrs: Chest xray reviewed from this am. Right lung well expanded. Chest tube in appropriate position. Lab Results last 24 hrs: Laboratory Results - last 24 hr 01/19/17 01/21/17 01/21/17 Range/Units 05:10 05:48 05:48 WBC 10.41 (4.0-11.0) K/uL RBC 5.32 (4.30-5.90) M/uL Hgb 13.9 (12.0-16.0) g/dL Hct 45.6 (36.0-46.0) % MCV 85.7 (80.0-98.0) fL MCH 26.1 L (27.0-32.0) pg MCHC 30.5 L (31.0-37.0) g/dL RDW Std Deviation 53.6 (28.0-62.0) fl RDW Coeff of George 18 H (11.0-15.0) % Plt Count 200 (150-400) K/uL MPV 10.20 (7.40-12.00) fL Neut % (Auto) 71.1 (48.0-80.0) % Lymph % (Auto) 18.3 (16.0-40.0) % [place] % (Auto) 10.5 (0.0-15.0) % Eos % (Auto) 0.0 (0.0-7.0) % Baso % (Auto) 0.1 (0.0-1.5) % Neut # 7.4 H (1.4-5.7) K/uL Lymph # 1.9 (0.6-2.4) K/uL [place] # 1.1 H (0.0-0.8) K/uL Eos # 0.0 (0.0-0.7) K/uL Baso # 0.0 (0.0-0.1) K/uL Nucleated RBC % 0.0 /100WBC Nucleated RBCs # 0 K/uL Sodium 138 (136-146) mmol/L Potassium 4.8 (3.5-5.1) mmol/L Chloride 103 (98-110) mmol/L Carbon Dioxide 26 (21-31) mmol/L BUN 18 (6.0-23.0) mg/dL Creatinine 0.9 (0.6-1.5) mg/dL Est Cr Clr Drug Dosing 55.20 mL/min Estimated GFR (MDRD) > 60.0 ml/min Glucose 111 H (60-110) mg/dL Calcium 8.6 L (8.8-10.8) mg/dL Magnesium (1.5-2.3) mEq/L Ferritin 91 (11-307) ng/mL 01/21/17 Range/Units 05:48 WBC (4.0-11.0) K/uL RBC (4.30-5.90) M/uL Hgb (12.0-16.0) g/dL Hct (36.0-46.0) % MCV (80.0-98.0) fL MCH (27.0-32.0) pg MCHC (31.0-37.0) g/dL RDW Std Deviation (28.0-62.0) fl RDW Coeff of George (11.0-15.0) % Plt Count (150-400) K/uL MPV (7.40-12.00) fL Neut % (Auto) (48.0-80.0) % Lymph % (Auto) (16.0-40.0) % [place] % (Auto) (0.0-15.0) % Eos % (Auto) (0.0-7.0) % Baso % (Auto) (0.0-1.5) % Neut # (1.4-5.7) K/uL Lymph # (0.6-2.4) K/uL [place] # (0.0-0.8) K/uL Eos # (0.0-0.7) K/uL Baso # (0.0-0.1) K/uL Nucleated RBC % /100WBC Nucleated RBCs # K/uL Sodium (136-146) mmol/L Potassium (3.5-5.1) mmol/L Chloride (98-110) mmol/L Carbon Dioxide (21-31) mmol/L BUN (6.0-23.0) mg/dL Creatinine (0.6-1.5) mg/dL Est Cr Clr Drug Dosing mL/min Estimated GFR (MDRD) ml/min Glucose (60-110) mg/dL Calcium (8.8-10.8) mg/dL Magnesium 1.5 (1.5-2.3) mEq/L Ferritin (11-307) ng/mL Med Orders - Current: Current Medications Acetaminophen/Hydrocodone Bitart ([place] 325-5 Mg) 1 - 2 tab PO Q4H PRN PRN Reason: Pain Last Admin: 01/21/17 02:32 Dose: 1 tab Albuterol/Ipratropium (Duoneb 3.0-0.5 Mg/3 Ml) 3 ml NEB Q4HRRT PRN PRN Reason: Wheezing Last Admin: 01/19/17 16:40 Dose: 3 ml Clonazepam (Klonopin) 0.5 mg PO TID PRN PRN Reason: Anxiety Last Admin: 01/19/17 20:32 Dose: 0.5 mg Diltiazem HCl (Cardizem Cd) 120 mg PO DAILY [facility] Last Admin: 01/20/17 12:28 Dose: 120 mg Fentanyl (Duragesic) 25 mcg TRDERM Q72H [facility] Last Admin: 01/18/17 19:25 Dose: 25 mcg Fluoxetine HCl (Prozac) 20 mg PO BEDTIME [facility] Last Admin: 01/20/17 20:45 Dose: 20 mg Furosemide (Lasix) 20 mg PO DAILY [facility] Last Admin: 01/20/17 09:10 Dose: 20 mg Hydromorphone HCl (Dilaudid) 0.5 mg IVPUSH Q2H PRN PRN Reason: Pain Last Admin: 01/21/17 07:26 Dose: 0.5 mg Sodium Chloride (Sodium Chloride 0.45%) 1,000 mls @ 75 mls/hr IV ASDIRECTED [facility] Last Admin: 01/21/17 05:19 Dose: 75 mls/hr Lisinopril (Prinivil) 10 mg PO DAILY [facility] Last Admin: 01/20/17 09:10 Dose: 10 mg Methylprednisolone Sodium Succinate (Solu-Medrol) 40 mg IVPUSH Q6H [facility] Last Admin: 01/21/17 05:17 Dose: 40 mg Mirtazapine (Remeron) 15 mg PO BEDTIME [facility] Last Admin: 01/20/17 20:46 Dose: 15 mg Miscellaneous Information (Remove Patch) 1 ea TRDERM Q72H [facility] Omeprazole (Omeprazole) 20 mg PO ACBREAKFAST [facility] Last Admin: 01/21/17 06:54 Dose: 20 mg Ondansetron HCl (Zofran) 4 mg IVPUSH Q4H PRN PRN Reason: Nausea/Vomiting Capecitabine [Xeloda (] 3 Tab) 3 each PO BID [facility] Last Admin: 01/20/17 21:18 Dose: Not Given Flurazepam Hcl [ Flurazepam Hcl] 30 Mg 1 each PO BEDTIME [facility] Last Admin: 01/20/17 21:18 Dose: Not Given Fluticasone/Salmeterol (Advair Diskus 250-50) 1 puff INH BID [facility] Last Admin: 01/21/17 08:42 Dose: 1 puff Sodium Chloride (Saline Flush) 10 ml FLUSH ASDIRECTED PRN PRN Reason: Keep Vein Open Sodium Chloride (Saline Flush) 2.5 ml FLUSH ASDIRECTED PRN PRN Reason: Keep Vein Open Sodium Chloride (Saline Flush) 10 ml FLUSH ASDIRECTED PRN PRN Reason: Keep Vein Open Sodium Chloride (Saline Flush) 2.5 ml FLUSH ASDIRECTED PRN PRN Reason: Keep Vein Open Sucralfate (Carafate) 1 gm PO QID [facility] Last Admin: 01/21/17 05:17 Dose: 1 gm Discontinued Medications Albuterol/Ipratropium (Duoneb 3.0-0.5 Mg/3 Ml) 3 ml NEB ONETIME ONE Stop: 01/18/17 14:39 Last Admin: 01/18/17 14:46 Dose: 3 ml Albuterol/Ipratropium (Duoneb 3.0-0.5 Mg/3 Ml) Confirm Administered Dose 3 ml .ROUTE .STK-MED ONE Stop: 01/18/17 14:43 Last Admin: 01/18/17 15:27 Dose: Not Given Albuterol/Ipratropium (Duoneb 3.0-0.5 Mg/3 Ml) Confirm Administered Dose 3 ml .ROUTE .STK-MED ONE Stop: 01/19/17 05:27 Last Admin: 01/19/17 05:30 Dose: 3 ml Bupivacaine HCl (Sensorcaine-Mpf 0.5%) Confirm Administered Dose 10 ml .ROUTE .STK-MED ONE Stop: 01/20/17 18:59 Ferrous Sulfate (Ferrous Sulfate) 325 mg PO TID [facility] Last Admin: 01/19/17 05:00 Dose: 325 mg Sodium Chloride (Normal Saline) 500 mls @ 999 mls/hr IV STAT [facility] Last Admin: 01/18/17 15:43 Dose: 80 mls/hr Levofloxacin/Dextrose 750 mg/ (Premix) 150 mls @ 100 mls/hr IV ONETIME ONE Stop: 01/18/17 18:29 Last Admin: 01/18/17 18:12 Dose: Not Given Iopamidol (Isovue-370 (76%)) 50 ml IV ONETIME STA Stop: 01/18/17 15:22 Last Admin: 01/18/17 18:03 Dose: Not Given Lidocaine HCl (Xylocaine 1%) Confirm Administered Dose 50 ml .ROUTE .STK-MED ONE Stop: 01/20/17 18:59 Methylprednisolone Sodium Succinate (Solu-Medrol) 125 mg IVPUSH ONETIME ONE Stop: 01/18/17 16:00 Last Admin: 01/18/17 16:21 Dose: 125 mg Morphine Sulfate (Morphine) 2 mg IVPUSH Q2H PRN PRN Reason: Pain (severe 7-10) Stop: 01/19/17 16:32 Morphine Sulfate (Morphine) Confirm Administered Dose 4 mg .ROUTE .STK-MED ONE Stop: 01/20/17 18:56 Last Admin: 01/20/17 20:31 Dose: Not Given Non-Formulary Medication (Fentanyl [Fentanyl]) 1 patch TD Q72H [facility] Last Admin: 01/18/17 19:14 Dose: Not Given Ondansetron HCl (Zofran Odt) 8 mg PO Q8H [facility] Last Admin: 01/20/17 16:18 Dose: 8 mg Tiotropium [place] (Spiriva Handihaler) 18 mcg INH DAILY [facility] - Exam Wound/Incisions: dressing dry and intact Quality Assessment: supplemental oxygen General: alert, oriented, cooperative, no acute distress HEENT: Pupils equal, Pupils reactive, EOMI Neck: supple, trachea midline Lungs: Wheezing, Other (Still has a small air leak. CT output 370 mls since insertion. ). No: Rales, Rhonchi, Rub, Stridor Cardiovascular: regular rate, regular rhythm, tachycardia Abdomen: soft, no tenderness, no distension Extremities: no edema Skin: warm, dry, intact Neurological: no new focal deficit Psy/Mental Status: alert, normal affect, normal mood - Problem List & Annotations (1) Iatrogenic pneumothorax SNOMED Code(s): 337064250 Code(s): J95.811 - POSTPROCEDURAL PNEUMOTHORAX Status: Acute Priority: High Current Visit: Yes Annotation/Comment:: Following thoracentesis. Right side. (2) Pneumothorax, postprocedural SNOMED Code(s): 287466689 Code(s): J95.811 - POSTPROCEDURAL PNEUMOTHORAX Status: Acute Priority: High Current Visit: Yes (3) COPD with exacerbation SNOMED Code(s): 298810428, 264475561 Code(s): J44.1 - CHRONIC OBSTRUCTIVE PULMONARY DISEASE W (ACUTE) EXACERBATION Status: Acute Priority: Medium Current Visit: Yes (4) Depression with anxiety SNOMED Code(s): 711609305 Code(s): F41.8 - OTHER SPECIFIED ANXIETY DISORDERS Status: Acute Priority : Medium Current Visit: Yes (5) Metastatic breast cancer SNOMED Code(s): 406358710 Code(s): C50.919 - MALIGNANT NEOPLASM OF UNSP SITE OF UNSPECIFIED FEMALE BREAST; C79.9 - SECONDARY MALIGNANT NEOPLASM OF UNSPECIFIED SITE Status: Acute Priority: Medium Current Visit: Yes (6) Recurrent right pleural effusion SNOMED Code(s): 11147758 Code(s): J90 - PLEURAL EFFUSION, NOT ELSEWHERE CLASSIFIED Status: Acute Priority: Medium Current Visit: Yes - Problem List Review Problem List Initiated/Reviewed/Updated: Yes - My Orders Last 24 Hours: Active Orders 24 hr Category Date Time Status Admission Status [Patient Status] [ADT] Routine ADT 01/20/17 18:34 Active Chest Tube Management [RC] Q12H Care 01/20/17 20:13 Active Communication Order [RC] ROUTINE Care 01/20/17 12:20 Active CXR [Chest 2V] [CR] Stat Exams 01/20/17 12:58 Taken Chest 1V Frontal [CR] Routine Exams 01/21/17 08:15 Taken Chest 1V Frontal [CR] Stat Exams 01/20/17 20:13 Taken Echo 2D wo Cont [US] Urgent Exams 01/20/17 12:17 Ordered BASIC METABOLIC PANEL,BMP [CHEM] AM Lab 01/22/17 05:11 Ordered Diltiazem [Cardizem CD] Med 01/20/17 12:30 Active 120 mg PO DAILY HYDROmorphone [Dilaudid] Med 01/20/17 21:14 Active 0.5 mg IVPUSH Q2H PRN Ondansetron [Zofran] Med 01/20/17 21:13 Active 4 mg IVPUSH Q4H PRN Remove Patch Med 01/21/17 19:00 Active 1 ea TRDERM Q72H Sodium Chloride 0.45% 1,000 ml Med 01/20/17 12:30 Active IV ASDIRECTED Medication Orders Acetaminophen/Hydrocodone Bitart ([place] 325-5 Mg) 1 - 2 tab PO Q4H PRN PRN Reason: Pain Last Admin: 01/21/17 02:32 Dose: 1 tab Admin: 01/20/17 20:41 Dose: 1 tab Admin: 01/20/17 16:18 Dose: 1 tab Admin: 01/20/17 09:59 Dose: 2 tab Admin: 01/20/17 05:46 Dose: 2 tab Admin: 01/19/17 12:53 Dose: 1 tab Albuterol/Ipratropium (Duoneb 3.0-0.5 Mg/3 Ml) 3 ml NEB Q4HRRT PRN PRN Reason: Wheezing Last Admin: 01/19/17 16:40 Dose: 3 ml Clonazepam (Klonopin) 0.5 mg PO TID PRN PRN Reason: Anxiety Last Admin: 01/19/17 20:32 Dose: 0.5 mg Admin: 01/19/17 09:10 Dose: 0.5 mg Diltiazem HCl (Cardizem Cd) 120 mg PO DAILY [facility] Last Admin: 01/20/17 12:28 Dose: 120 mg Fentanyl (Duragesic) 25 mcg TRDERM Q72H [facility] Last Admin: 01/18/17 19:25 Dose: 25 mcg Fluoxetine HCl (Prozac) 20 mg PO BEDTIME [facility] Last Admin: 01/20/17 20:45 Dose: 20 mg Admin: 01/19/17 20:32 Dose: 20 mg Admin: 01/19/17 09:10 Dose: 20 mg Furosemide (Lasix) 20 mg PO DAILY [facility] Last Admin: 01/20/17 09:10 Dose: 20 mg Admin: 01/19/17 08:00 Dose: 20 mg Hydromorphone HCl (Dilaudid) 0.5 mg IVPUSH Q2H PRN PRN Reason: Pain Last Admin: 01/21/17 07:26 Dose: 0.5 mg Admin: 01/20/17 22:27 Dose: 0.5 mg Sodium Chloride (Sodium Chloride 0.45%) 1,000 mls @ 75 mls/hr IV ASDIRECTED [facility] Last Admin: 01/21/17 05:19 Dose: 75 mls/hr Infusion: 01/21/17 01:51 Dose: 75 mls/hr Admin: 01/20/17 12:31 Dose: 75 mls/hr Lisinopril (Prinivil) 10 mg PO DAILY [facility] Last Admin: 01/20/17 09:10 Dose: 10 mg Admin: 01/19/17 08:00 Dose: 10 mg Methylprednisolone Sodium Succinate (Solu-Medrol) 40 mg IVPUSH Q6H [facility] Last Admin: 01/21/17 05:17 Dose: 40 mg Admin: 01/20/17 22:19 Dose: 40 mg Admin: 01/20/17 16:20 Dose: 40 mg Admin: 01/20/17 09:11 Dose: 40 mg Admin: 01/20/17 04:45 Dose: 40 mg Admin: 01/19/17 21:23 Dose: 40 mg Admin: 01/19/17 16:43 Dose: 40 mg Admin: 01/19/17 09:10 Dose: 40 mg Admin: 01/19/17 03:57 Dose: 40 mg Admin: 01/18/17 21:06 Dose: 40 mg Mirtazapine (Remeron) 15 mg PO BEDTIME [facility] Last Admin: 01/20/17 20:46 Dose: 15 mg Admin: 01/19/17 20:32 Dose: 15 mg Admin: 01/18/17 20:20 Dose: 15 mg Miscellaneous Information (Remove Patch) 1 ea TRDERM Q72H [facility] Omeprazole (Omeprazole) 20 mg PO ACBREAKFAST [facility] Last Admin: 01/21/17 06:54 Dose: 20 mg Admin: 01/20/17 07:05 Dose: 20 mg Admin: 01/19/17 07:55 Dose: 20 mg Ondansetron HCl (Zofran) 4 mg IVPUSH Q4H PRN PRN Reason: Nausea/Vomiting Capecitabine [Xeloda (] 3 Tab) 3 each PO BID [facility] Last Admin: 01/20/17 21:18 Dose: Admin: 01/20/17 09:11 Dose: Admin: 01/19/17 21:03 Dose: Admin: 01/19/17 08:04 Dose: Admin: 01/18/17 20:31 Dose: Flurazepam Hcl [ Flurazepam Hcl] 30 Mg 1 each PO BEDTIME [facility] Last Admin: 01/20/17 21:18 Dose: Admin: 01/19/17 21:04 Dose: Admin: 01/18/17 20:31 Dose: Fluticasone/Salmeterol (Advair Diskus 250-50) 1 puff INH BID [facility] Last Admin: 01/21/17 08:42 Dose: 1 puff Admin: 01/20/17 20:41 Dose: 1 puff Admin: 01/20/17 08:44 Dose: 1 disk Admin: 01/19/17 20:12 Dose: 1 disk Admin: 01/19/17 10:01 Dose: 1 disk Admin: 01/18/17 20:09 Dose: 1 disk Sodium Chloride (Saline Flush) 10 ml FLUSH ASDIRECTED PRN PRN Reason: Keep Vein Open Sodium Chloride (Saline Flush) 2.5 ml FLUSH ASDIRECTED PRN PRN Reason: Keep Vein Open Sodium Chloride (Saline Flush) 10 ml FLUSH ASDIRECTED PRN PRN Reason: Keep Vein Open Sodium Chloride (Saline Flush) 2.5 ml FLUSH ASDIRECTED PRN PRN Reason: Keep Vein Open Sucralfate (Carafate) 1 gm PO QID [facility] Last Admin: 01/21/17 05:17 Dose: 1 gm Admin: 01/21/17 00:14 Dose: 1 gm Admin: 01/20/17 17:50 Dose: 1 gm Admin: 01/20/17 11:29 Dose: 1 gm Admin: 01/20/17 07:00 Dose: 1 gm Admin: 01/20/17 00:30 Dose: 1 gm Admin: 01/19/17 20:15 Dose: 1 gm Admin: 01/19/17 11:34 Dose: 1 gm Admin: 01/19/17 05:00 Dose: 1 gm Admin: 01/19/17 00:05 Dose: 1 gm Admin: 01/18/17 17:54 Dose: 1 gm - Assessment Assessment (Free Text/Narrative):: Stable. Pneumothorax resolved but still has a small air leak. - Plan Plan (Free Text/Narrative):: Continue CT to suction today and possibly tomorrow. CXR ordered for tomorrow.
[2017-01-21] MEDS: Furosemide 20 MG Tab PO SCH (09:25)
[2017-01-21] MEDS: CAPECITABINE PO SCH ×2 (09:25→11:52)
[2017-01-21] MEDS: Lisinopril 10 MG Tab PO SCH (09:25)
[2017-01-21] MEDS: Diltiazem 120 MG Cap.CD PO SCH (09:25)
--- NOTE | 2017-01-21 17:04 | PCM.PN ---
- General Info Date of Service: 01/21/17 Admission Dx/Problem (Free Text): sob Functional Status: Reports: pain controlled - Review of Systems HEENT: Reports: no symptoms Pulmonary: Reports: shortness of breath, wheezing Cardiovascular: Reports: other (tchycardia) Gastrointestinal: Reports: No symptoms Genitourinary: Reports: no symptoms Musculoskeletal: Reports: no symptoms Skin: Reports: no symptoms Neurological: Reports: no symptoms Psychiatric: Reports: anxiety - Patient Data Vitals - most recent: Last Vital Signs Temp 97.6 F 01/21/17 16:00 Pulse 104 H 01/21/17 16:00 Resp 19 01/21/17 16:00 BP 130/76 01/21/17 16:00 Pulse Ox 91 L 01/21/17 16:00 Weight - most recent: 169 lb 11.2 oz I&O - last 24 hours: Intake & Output 01/21/17 01/21/17 01/21/17 06:59 14:59 22:59 Intake Total 1250 1200 Output Total 1045 300 Balance 205 900 Lab Results last 24 hrs: Laboratory Results - last 24 hr 01/21/17 01/21/17 01/21/17 Range/Units 05:48 05:48 05:48 WBC 10.41 (4.0-11.0) K/uL RBC 5.32 (4.30-5.90) M/uL Hgb 13.9 (12.0-16.0) g/dL Hct 45.6 (36.0-46.0) % MCV 85.7 (80.0-98.0) fL MCH 26.1 L (27.0-32.0) pg MCHC 30.5 L (31.0-37.0) g/dL RDW Std Deviation 53.6 (28.0-62.0) fl RDW Coeff of George 18 H (11.0-15.0) % Plt Count 200 (150-400) K/uL MPV 10.20 (7.40-12.00) fL Neut % (Auto) 71.1 (48.0-80.0) % Lymph % (Auto) 18.3 (16.0-40.0) % [place] % (Auto) 10.5 (0.0-15.0) % Eos % (Auto) 0.0 (0.0-7.0) % Baso % (Auto) 0.1 (0.0-1.5) % Neut # 7.4 H (1.4-5.7) K/uL Lymph # 1.9 (0.6-2.4) K/uL [place] # 1.1 H (0.0-0.8) K/uL Eos # 0.0 (0.0-0.7) K/uL Baso # 0.0 (0.0-0.1) K/uL Nucleated RBC % 0.0 /100WBC Nucleated RBCs # 0 K/uL Sodium 138 (136-146) mmol/L Potassium 4.8 (3.5-5.1) mmol/L Chloride 103 (98-110) mmol/L Carbon Dioxide 26 (21-31) mmol/L BUN 18 (6.0-23.0) mg/dL Creatinine 0.9 (0.6-1.5) mg/dL Est Cr Clr Drug Dosing 55.20 mL/min Estimated GFR (MDRD) > 60.0 ml/min Glucose 111 H (60-110) mg/dL Calcium 8.6 L (8.8-10.8) mg/dL Magnesium 1.5 (1.5-2.3) mEq/L Med Orders - Current: Current Medications Acetaminophen/Hydrocodone Bitart ([place] 325-5 Mg) 1 - 2 tab PO Q4H PRN PRN Reason: Pain Last Admin: 01/21/17 10:44 Dose: 2 tab Albuterol/Ipratropium (Duoneb 3.0-0.5 Mg/3 Ml) 3 ml NEB Q4HRRT PRN PRN Reason: Wheezing Last Admin: 01/19/17 16:40 Dose: 3 ml Clonazepam (Klonopin) 0.5 mg PO TID PRN PRN Reason: Anxiety Last Admin: 01/19/17 20:32 Dose: 0.5 mg Diltiazem HCl (Cardizem Cd) 120 mg PO DAILY [facility] Last Admin: 01/21/17 09:25 Dose: 120 mg Fentanyl (Duragesic) 25 mcg TRDERM Q72H [facility] Last Admin: 01/18/17 19:25 Dose: 25 mcg Fluoxetine HCl (Prozac) 20 mg PO BEDTIME [facility] Last Admin: 01/20/17 20:45 Dose: 20 mg Furosemide (Lasix) 20 mg PO DAILY [facility] Last Admin: 01/21/17 09:25 Dose: 20 mg Hydromorphone HCl (Dilaudid) 0.5 mg IVPUSH Q2H PRN PRN Reason: Pain Last Admin: 01/21/17 16:00 Dose: 0.5 mg Sodium Chloride (Sodium Chloride 0.45%) 1,000 mls @ 75 mls/hr IV ASDIRECTED [facility] Last Admin: 01/21/17 05:19 Dose: 75 mls/hr Lisinopril (Prinivil) 10 mg PO DAILY [facility] Last Admin: 01/21/17 09:25 Dose: 10 mg Methylprednisolone Sodium Succinate (Solu-Medrol) 40 mg IVPUSH Q6H [facility] Last Admin: 01/21/17 16:01 Dose: 40 mg Mirtazapine (Remeron) 15 mg PO BEDTIME [facility] Last Admin: 01/20/17 20:46 Dose: 15 mg Miscellaneous Information (Remove Patch) 1 ea TRDERM Q72H [facility] Omeprazole (Omeprazole) 20 mg PO ACBREAKFAST [facility] Last Admin: 01/21/17 06:54 Dose: 20 mg Ondansetron HCl (Zofran) 4 mg IVPUSH Q4H PRN PRN Reason: Nausea/Vomiting Flurazepam Hcl [ Flurazepam Hcl] 30 Mg 1 each PO BEDTIME [facility] Last Admin: 01/20/17 21:18 Dose: Not Given Capecitabine [Xeloda (]) 1 each PO DAILY [facility] Capecitabine [Xeloda (]) 2 each PO BEDTIME [facility] Fluticasone/Salmeterol (Advair Diskus 250-50) 1 puff INH BID [facility] Last Admin: 01/21/17 08:42 Dose: 1 puff Sodium Chloride (Saline Flush) 10 ml FLUSH ASDIRECTED PRN PRN Reason: Keep Vein Open Sodium Chloride (Saline Flush) 2.5 ml FLUSH ASDIRECTED PRN PRN Reason: Keep Vein Open Sodium Chloride (Saline Flush) 10 ml FLUSH ASDIRECTED PRN PRN Reason: Keep Vein Open Sodium Chloride (Saline Flush) 2.5 ml FLUSH ASDIRECTED PRN PRN Reason: Keep Vein Open Sucralfate (Carafate) 1 gm PO QID [facility] Last Admin: 01/21/17 11:53 Dose: 1 gm Discontinued Medications Albuterol/Ipratropium (Duoneb 3.0-0.5 Mg/3 Ml) 3 ml NEB ONETIME ONE Stop: 01/18/17 14:39 Last Admin: 01/18/17 14:46 Dose: 3 ml Albuterol/Ipratropium (Duoneb 3.0-0.5 Mg/3 Ml) Confirm Administered Dose 3 ml .ROUTE .STK-MED ONE Stop: 01/18/17 14:43 Last Admin: 01/18/17 15:27 Dose: Not Given Albuterol/Ipratropium (Duoneb 3.0-0.5 Mg/3 Ml) Confirm Administered Dose 3 ml .ROUTE .STK-MED ONE Stop: 01/19/17 05:27 Last Admin: 01/19/17 05:30 Dose: 3 ml Bupivacaine HCl (Sensorcaine-Mpf 0.5%) Confirm Administered Dose 10 ml .ROUTE .STK-MED ONE Stop: 01/20/17 18:59 Ferrous Sulfate (Ferrous Sulfate) 325 mg PO TID [facility] Last Admin: 01/19/17 05:00 Dose: 325 mg Sodium Chloride (Normal Saline) 500 mls @ 999 mls/hr IV STAT [facility] Last Admin: 01/18/17 15:43 Dose: 80 mls/hr Levofloxacin/Dextrose 750 mg/ (Premix) 150 mls @ 100 mls/hr IV ONETIME ONE Stop: 01/18/17 18:29 Last Admin: 01/18/17 18:12 Dose: Not Given Iopamidol (Isovue-370 (76%)) 50 ml IV ONETIME STA Stop: 01/18/17 15:22 Last Admin: 01/18/17 18:03 Dose: Not Given Lidocaine HCl (Xylocaine 1%) Confirm Administered Dose 50 ml .ROUTE .STK-MED ONE Stop: 01/20/17 18:59 Methylprednisolone Sodium Succinate (Solu-Medrol) 125 mg IVPUSH ONETIME ONE Stop: 01/18/17 16:00 Last Admin: 01/18/17 16:21 Dose: 125 mg Morphine Sulfate (Morphine) 2 mg IVPUSH Q2H PRN PRN Reason: Pain (severe 7-10) Stop: 03/02/17 16:32 Morphine Sulfate (Morphine) Confirm Administered Dose 4 mg .ROUTE .STK-MED ONE Stop: 01/20/17 18:56 Last Admin: 01/20/17 20:31 Dose: Not Given Non-Formulary Medication (Fentanyl [Fentanyl]) 1 patch TD Q72H [facility] Last Admin: 01/18/17 19:14 Dose: Not Given Ondansetron HCl (Zofran Odt) 8 mg PO Q8H [facility] Last Admin: 01/20/17 16:18 Dose: 8 mg Capecitabine [Xeloda (] 3 Tab) 3 each PO BID [facility] Last Admin: 01/21/17 11:52 Dose: 1 each Tiotropium [employer] (Spiriva Handihaler) 18 mcg INH DAILY [facility] - Exam Quality Assessment: supplemental oxygen General: alert, oriented, cooperative HEENT: Pupils equal, Pupils reactive Neck: supple, trachea midline, no JVD Lungs: Decreased breath sounds, Wheezing Abdomen: bowel sounds present, no tenderness, no distension Back Exam: normal inspection Extremities: no edema - Problem List & Annotations (1) Metastatic breast cancer SNOMED Code(s): 098087363 Code(s): C50.919 - MALIGNANT NEOPLASM OF UNSP SITE OF UNSPECIFIED FEMALE BREAST; C79.9 - SECONDARY MALIGNANT NEOPLASM OF UNSPECIFIED SITE Status: Acute Priority: Medium Current Visit: Yes (2) COPD with exacerbation SNOMED Code(s): 755618726, 335990234 Code(s): J44.1 - CHRONIC OBSTRUCTIVE PULMONARY DISEASE W (ACUTE) EXACERBATION Status: Acute Priority: Medium Current Visit: Yes (3) Recurrent right pleural effusion SNOMED Code(s): 16905480 Code(s): J90 - PLEURAL EFFUSION, NOT ELSEWHERE CLASSIFIED Status: Acute Priority: Medium Current Visit: Yes (4) Depression with anxiety SNOMED Code(s): 663120192 Code(s): F41.8 - OTHER SPECIFIED ANXIETY DISORDERS Status: Acute Priority : Medium Current Visit: Yes (5) Pneumothorax on right SNOMED Code(s): 778946843 Code(s): J93.9 - PNEUMOTHORAX, UNSPECIFIED Status: Acute Current Visit: Yes - Problem List Review Problem List Initiated/Reviewed/Updated: Yes - My Orders Last 24 Hours: My Active Orders 01/20/17 18:34 Admission Status [Patient Status] [ADT] Routine 01/20/17 21:13 Ondansetron [Zofran] 4 mg IVPUSH Q4H PRN 01/20/17 21:14 HYDROmorphone [Dilaudid] 0.5 mg IVPUSH Q2H PRN 01/21/17 19:00 Remove Patch 1 ea TRDERM Q72H 01/21/17 21:00 Patient's Own Medication [Ptom] 2 each PO BEDTIME 01/22/17 05:11 BASIC METABOLIC PANEL,BMP [CHEM] AM 01/22/17 09:00 Patient's Own Medication [Ptom] 1 each PO DAILY - Assessment Assessment:: A/p Copd exac - chronic wheezing , will d/c steroids., cont neb treatment Rt pleural effusions / pneumothorax - s/p chest tube , continue suctioning , s/ p chest tube yesterday , f/up sx DVT prof : scd Depression/anxiety - fluoxetine 20 mg po daily , remeron 15 mg po q hs , clonazepam 0.5 mg po TID prn Metastatic breast cancer - continue paleative chemotherapy , f/up oncology sinus tachycardia - no PE , secondary to pneumothorax
[2017-01-21] MEDS: fentaNYL 25 MCG/HR Transdermal Patch TRDERM SCH (18:21)
[2017-01-21] MEDS: FLUoxetine 20 MG Cap PO SCH (21:03)
[2017-01-21] MEDS: Mirtazapine 15 MG Tab PO SCH (21:03)
[2017-01-22] MEDS: HYDROmorphone 2 MG/ML Syringe IVPUSH PRN (01:11)
[2017-01-22] MEDS: methylPREDNISolone Sodium Succinate 40 MG/1 ML SDV IVPUSH SCH ×2 (04:57→10:00)
[2017-01-22] MEDS: Sucralfate 1 GM Tab PO SCH ×4 (06:32→23:42)
[2017-01-22] MEDS: Omeprazole 20 MG Cap.CR PO SCH (06:32)
[2017-01-22 07:51] LABS: CHLORIDE,CL 106 mmol/L (98-110); SODIUM,NA 138 mmol/L (136-146)
[2017-01-22] MEDS: Sodium Chloride 0.45% 1,000 ML IV SCH ×2 (07:58→21:50)
[2017-01-22] MEDS: Furosemide 20 MG Tab PO SCH (08:18)
[2017-01-22] MEDS: Lisinopril 10 MG Tab PO SCH (08:18)
[2017-01-22] MEDS: Diltiazem 120 MG Cap.CD PO SCH (08:18)
[2017-01-22] MEDS: Fluticasone/Salmeterol 250-50 MCG Inhalation Powder 14/Diskus INH SCH ×2 (08:36→20:02)
[2017-01-22] MEDS ORDERED: Polyethylene Glycol 3350 Powder 17 GM Packet PO PRN (10:23)
--- NOTE | 2017-01-22 11:29 | PCM.SURGPN ---
- General Info Date of Service: 01/22/17 Date of Surgery/Procedure: 01/20/17 POD#: 2 Post-Op Diagnosis: Iatrogenic pneumothorax Functional Status: Reports: pain controlled, tolerating diet, ambulating, incentive spirometry - Review of Systems General: Reports: appetite. Denies: fever, weakness, fatigue, chills, night sweats HEENT: Reports: no symptoms Pulmonary: Reports: shortness of breath (Chronic secondary to COPD), wheezing. Denies: cough, sputum, hemoptysis Cardiovascular: Reports: dyspnea on exertion. Denies: chest pain, palpitations Gastrointestinal: Denies: Abdominal pain, Constipation, Decreased appetite, Difficulty swallowing Genitourinary: Reports: no symptoms Musculoskeletal: Reports: no symptoms Skin: Reports: no symptoms Neurological: Reports: no symptoms Psychiatric: Reports: no symptoms - Patient Data Vitals - most recent: Last Vital Signs Temp 97.3 F 01/22/17 08:00 Pulse 107 H 01/22/17 08:18 Resp 20 01/22/17 08:00 BP 149/83 H 01/22/17 08:18 Pulse Ox 93 L 01/22/17 08:00 Weight - most recent: 169 lb 11.2 oz I&O - last 24 hours: Intake & Output 01/21/17 01/22/17 01/22/17 19:59 03:59 11:59 Intake Total 2200 1249 Output Total 300 759 Balance 1900 490 Lab Results last 24 hrs: Laboratory Results - last 24 hr 01/22/17 01/22/17 Range/Units 05:25 05:25 Sodium 138 (136-146) mmol/L Potassium 4.8 (3.5-5.1) mmol/L Chloride 106 (98-110) mmol/L Carbon Dioxide 23 (21-31) mmol/L BUN 18 (6.0-23.0) mg/dL Creatinine 0.7 (0.6-1.5) mg/dL Est Cr Clr Drug Dosing 70.98 mL/min Estimated GFR (MDRD) > 60.0 ml/min Glucose 144 H (60-110) mg/dL Calcium 8.7 L (8.8-10.8) mg/dL Magnesium 1.6 (1.5-2.3) mEq/L Med Orders - Current: Current Medications Acetaminophen/Hydrocodone Bitart ([place] 325-5 Mg) 1 - 2 tab PO Q4H PRN PRN Reason: Pain Last Admin: 01/21/17 10:44 Dose: 2 tab Albuterol/Ipratropium (Duoneb 3.0-0.5 Mg/3 Ml) 3 ml NEB Q4HRRT PRN PRN Reason: Wheezing Last Admin: 01/19/17 16:40 Dose: 3 ml Clonazepam (Klonopin) 0.5 mg PO TID PRN PRN Reason: Anxiety Last Admin: 01/19/17 20:32 Dose: 0.5 mg Diltiazem HCl (Cardizem Cd) 120 mg PO DAILY [facility] Last Admin: 01/22/17 08:18 Dose: 120 mg Fentanyl (Duragesic) 25 mcg TRDERM Q72H [facility] Last Admin: 01/21/17 18:21 Dose: 25 mcg Fluoxetine HCl (Prozac) 20 mg PO BEDTIME [facility] Last Admin: 01/21/17 21:03 Dose: 20 mg Furosemide (Lasix) 20 mg PO DAILY [facility] Last Admin: 01/22/17 08:18 Dose: 20 mg Hydromorphone HCl (Dilaudid) 0.5 mg IVPUSH Q2H PRN PRN Reason: Pain Last Admin: 01/22/17 01:11 Dose: 0.5 mg Sodium Chloride (Sodium Chloride 0.45%) 1,000 mls @ 75 mls/hr IV ASDIRECTED [facility] Last Admin: 01/22/17 07:58 Dose: 75 mls/hr Lisinopril (Prinivil) 10 mg PO DAILY [facility] Last Admin: 01/22/17 08:18 Dose: 10 mg Methylprednisolone Sodium Succinate (Solu-Medrol) 40 mg IVPUSH Q6H [facility] Last Admin: 01/22/17 10:00 Dose: 40 mg Mirtazapine (Remeron) 15 mg PO BEDTIME [facility] Last Admin: 01/21/17 21:03 Dose: 15 mg Miscellaneous Information (Remove Patch) 1 ea TRDERM Q72H [facility] Last Admin: 01/21/17 18:22 Dose: 1 ea Omeprazole (Omeprazole) 20 mg PO ACBREAKFAST [facility] Last Admin: 01/22/17 06:32 Dose: 20 mg Ondansetron HCl (Zofran) 4 mg IVPUSH Q4H PRN PRN Reason: Nausea/Vomiting Flurazepam Hcl [ Flurazepam Hcl] 30 Mg 1 each PO BEDTIME [facility] Last Admin: 01/21/17 21:05 Dose: Not Given Capecitabine [Xeloda (]) 1 each PO DAILY [facility] Last Admin: 01/22/17 08:19 Dose: 1 each Capecitabine [Xeloda (]) 2 each PO BEDTIME [facility] Last Admin: 01/21/17 20:59 Dose: 2 each Polyethylene Glycol (Miralax) 17 gm PO DAILY PRN PRN Reason: Constipation Fluticasone/Salmeterol (Advair Diskus 250-50) 1 puff INH BID [facility] Last Admin: 01/22/17 08:36 Dose: 1 puff Sodium Chloride (Saline Flush) 10 ml FLUSH ASDIRECTED PRN PRN Reason: Keep Vein Open Sodium Chloride (Saline Flush) 2.5 ml FLUSH ASDIRECTED PRN PRN Reason: Keep Vein Open Sodium Chloride (Saline Flush) 10 ml FLUSH ASDIRECTED PRN PRN Reason: Keep Vein Open Sodium Chloride (Saline Flush) 2.5 ml FLUSH ASDIRECTED PRN PRN Reason: Keep Vein Open Sucralfate (Carafate) 1 gm PO QID [facility] Last Admin: 01/22/17 06:32 Dose: 1 gm Discontinued Medications Albuterol/Ipratropium (Duoneb 3.0-0.5 Mg/3 Ml) 3 ml NEB ONETIME ONE Stop: 01/18/17 14:39 Last Admin: 01/18/17 14:46 Dose: 3 ml Albuterol/Ipratropium (Duoneb 3.0-0.5 Mg/3 Ml) Confirm Administered Dose 3 ml .ROUTE .STK-MED ONE Stop: 01/18/17 14:43 Last Admin: 01/18/17 15:27 Dose: Not Given Albuterol/Ipratropium (Duoneb 3.0-0.5 Mg/3 Ml) Confirm Administered Dose 3 ml .ROUTE .STK-MED ONE Stop: 01/19/17 05:27 Last Admin: 01/19/17 05:30 Dose: 3 ml Bupivacaine HCl (Sensorcaine-Mpf 0.5%) Confirm Administered Dose 10 ml .ROUTE .STK-MED ONE Stop: 03/03/17 18:59 Ferrous Sulfate (Ferrous Sulfate) 325 mg PO TID [facility] Last Admin: 01/19/17 05:00 Dose: 325 mg Sodium Chloride (Normal Saline) 500 mls @ 999 mls/hr IV STAT [facility] Last Admin: 01/18/17 15:43 Dose: 80 mls/hr Levofloxacin/Dextrose 750 mg/ (Premix) 150 mls @ 100 mls/hr IV ONETIME ONE Stop: 01/18/17 18:29 Last Admin: 01/18/17 18:12 Dose: Not Given Iopamidol (Isovue-370 (76%)) 50 ml IV ONETIME STA Stop: 01/18/17 15:22 Last Admin: 01/18/17 18:03 Dose: Not Given Lidocaine HCl (Xylocaine 1%) Confirm Administered Dose 50 ml .ROUTE .STK-MED ONE Stop: 01/20/17 18:59 Methylprednisolone Sodium Succinate (Solu-Medrol) 125 mg IVPUSH ONETIME ONE Stop: 01/18/17 16:00 Last Admin: 01/18/17 16:21 Dose: 125 mg Morphine Sulfate (Morphine) 2 mg IVPUSH Q2H PRN PRN Reason: Pain (severe 7-10) Stop: 01/19/17 16:32 Morphine Sulfate (Morphine) Confirm Administered Dose 4 mg .ROUTE .STK-MED ONE Stop: 01/20/17 18:56 Last Admin: 01/20/17 20:31 Dose: Not Given Non-Formulary Medication (Fentanyl [Fentanyl]) 1 patch TD Q72H [facility] Last Admin: 01/18/17 19:14 Dose: Not Given Ondansetron HCl (Zofran Odt) 8 mg PO Q8H [facility] Last Admin: 01/20/17 16:18 Dose: 8 mg Capecitabine [Xeloda (] 3 Tab) 3 each PO BID [facility] Last Admin: 01/21/17 11:52 Dose: 1 each Tiotropium [place] (Spiriva Handihaler) 18 mcg INH DAILY [facility] - Exam Wound/Incisions: dressing dry and intact Quality Assessment: supplemental oxygen General: alert, oriented, cooperative, mild distress HEENT: Pupils equal, Pupils reactive Neck: supple, trachea midline, no JVD Lungs: Normal respiratory effort (chronically tachypneic), Wheezing Cardiovascular: regular rate, regular rhythm, tachycardia Abdomen: bowel sounds present, soft, no tenderness Extremities: no edema Skin: warm, dry, intact Neurological: no new focal deficit Psy/Mental Status: alert, normal affect, normal mood - Problem List & Annotations (1) Iatrogenic pneumothorax SNOMED Code(s): 529013030 Code(s): J95.811 - POSTPROCEDURAL PNEUMOTHORAX Status: Acute Priority: High Current Visit: Yes Annotation/Comment:: Following thoracentesis. Right side. (2) Pneumothorax, postprocedural SNOMED Code(s): 291519961 Code(s): J95.811 - POSTPROCEDURAL PNEUMOTHORAX Status: Acute Priority: High Current Visit: Yes (3) COPD with exacerbation SNOMED Code(s): 130017538, 580594709 Code(s): J44.1 - CHRONIC OBSTRUCTIVE PULMONARY DISEASE W (ACUTE) EXACERBATION Status: Acute Priority: Medium Current Visit: Yes (4) Depression with anxiety SNOMED Code(s): 300576625 Code(s): F41.8 - OTHER SPECIFIED ANXIETY DISORDERS Status: Acute Priority : Medium Current Visit: Yes (5) Metastatic breast cancer SNOMED Code(s): 089093073 Code(s): C50.919 - MALIGNANT NEOPLASM OF UNSP SITE OF UNSPECIFIED FEMALE BREAST; C79.9 - SECONDARY MALIGNANT NEOPLASM OF UNSPECIFIED SITE Status: Acute Priority: Medium Current Visit: Yes (6) Recurrent right pleural effusion SNOMED Code(s): 34001184 Code(s): J90 - PLEURAL EFFUSION, NOT ELSEWHERE CLASSIFIED Status: Acute Priority: Medium Current Visit: Yes - Problem List Review Problem List Initiated/Reviewed/Updated: Yes - My Orders Last 24 Hours: Active Orders 24 hr Category Date Time Status Communication Order [RC] ROUTINE Care 01/23/17 06:00 Ordered PT Evaluation and Treatment [CONS] Routine Cons 01/22/17 10:48 Active Chest 1V Frontal [CR] Routine Exams 01/22/17 08:00 Taken Chest 1V Frontal [CR] Routine Exams 01/23/17 10:00 Ordered Patient's Own Medication [Ptom] Med 01/22/17 09:00 Active 1 each PO DAILY Patient's Own Medication [Ptom] Med 01/21/17 21:00 Active 2 each PO BEDTIME Polyethylene Glycol 3350 [MiraLAX] Med 01/22/17 10:23 Active 17 gm PO DAILY PRN Medication Orders Acetaminophen/Hydrocodone Bitart ([place] 325-5 Mg) 1 - 2 tab PO Q4H PRN PRN Reason: Pain Last Admin: 01/21/17 10:44 Dose: 2 tab Admin: 01/21/17 02:32 Dose: 1 tab Admin: 01/20/17 20:41 Dose: 1 tab Admin: 01/20/17 16:18 Dose: 1 tab Admin: 01/20/17 09:59 Dose: 2 tab Admin: 01/20/17 05:46 Dose: 2 tab Admin: 01/19/17 12:53 Dose: 1 tab Albuterol/Ipratropium (Duoneb 3.0-0.5 Mg/3 Ml) 3 ml NEB Q4HRRT PRN PRN Reason: Wheezing Last Admin: 01/19/17 16:40 Dose: 3 ml Clonazepam (Klonopin) 0.5 mg PO TID PRN PRN Reason: Anxiety Last Admin: 01/19/17 20:32 Dose: 0.5 mg Admin: 01/19/17 09:10 Dose: 0.5 mg Diltiazem HCl (Cardizem Cd) 120 mg PO DAILY [facility] Last Admin: 01/22/17 08:18 Dose: 120 mg Admin: 01/21/17 09:25 Dose: 120 mg Admin: 01/20/17 12:28 Dose: 120 mg Fentanyl (Duragesic) 25 mcg TRDERM Q72H [facility] Last Admin: 01/21/17 18:21 Dose: 25 mcg Admin: 01/18/17 19:25 Dose: 25 mcg Fluoxetine HCl (Prozac) 20 mg PO BEDTIME [facility] Last Admin: 01/21/17 21:03 Dose: 20 mg Admin: 01/20/17 20:45 Dose: 20 mg Admin: 01/19/17 20:32 Dose: 20 mg Admin: 01/19/17 09:10 Dose: 20 mg Furosemide (Lasix) 20 mg PO DAILY [facility] Last Admin: 01/22/17 08:18 Dose: 20 mg Admin: 01/21/17 09:25 Dose: 20 mg Admin: 01/20/17 09:10 Dose: 20 mg Admin: 01/19/17 08:00 Dose: 20 mg Hydromorphone HCl (Dilaudid) 0.5 mg IVPUSH Q2H PRN PRN Reason: Pain Last Admin: 01/22/17 01:11 Dose: 0.5 mg Admin: 01/21/17 19:11 Dose: 0.5 mg Admin: 01/21/17 16:00 Dose: 0.5 mg Admin: 01/21/17 07:26 Dose: 0.5 mg Admin: 01/20/17 22:27 Dose: 0.5 mg Sodium Chloride (Sodium Chloride 0.45%) 1,000 mls @ 75 mls/hr IV ASDIRECTED [facility] Last Admin: 01/22/17 07:58 Dose: 75 mls/hr Infusion: 01/22/17 07:48 Dose: 75 mls/hr Admin: 01/21/17 18:28 Dose: 75 mls/hr Infusion: 01/21/17 18:28 Dose: 75 mls/hr Admin: 01/21/17 05:19 Dose: 75 mls/hr Infusion: 01/21/17 01:51 Dose: 75 mls/hr Admin: 01/20/17 12:31 Dose: 75 mls/hr Lisinopril (Prinivil) 10 mg PO DAILY [facility] Last Admin: 01/22/17 08:18 Dose: 10 mg Admin: 01/21/17 09:25 Dose: 10 mg Admin: 01/20/17 09:10 Dose: 10 mg Admin: 01/19/17 08:00 Dose: 10 mg Methylprednisolone Sodium Succinate (Solu-Medrol) 40 mg IVPUSH Q6H [facility] Last Admin: 01/22/17 10:00 Dose: 40 mg Admin: 01/22/17 04:57 Dose: 40 mg Admin: 01/21/17 21:04 Dose: 40 mg Admin: 01/21/17 16:01 Dose: 40 mg Admin: 01/21/17 10:44 Dose: 40 mg Admin: 01/21/17 05:17 Dose: 40 mg Admin: 01/20/17 22:19 Dose: 40 mg Admin: 01/20/17 16:20 Dose: 40 mg Admin: 01/20/17 09:11 Dose: 40 mg Admin: 01/20/17 04:45 Dose: 40 mg Admin: 01/19/17 21:23 Dose: 40 mg Admin: 01/19/17 16:43 Dose: 40 mg Admin: 01/19/17 09:10 Dose: 40 mg Admin: 01/19/17 03:57 Dose: 40 mg Admin: 01/18/17 21:06 Dose: 40 mg Mirtazapine (Remeron) 15 mg PO BEDTIME [facility] Last Admin: 01/21/17 21:03 Dose: 15 mg Admin: 01/20/17 20:46 Dose: 15 mg Admin: 01/19/17 20:32 Dose: 15 mg Admin: 01/18/17 20:20 Dose: 15 mg Miscellaneous Information (Remove Patch) 1 ea TRDERM Q72H [facility] Last Admin: 01/21/17 18:22 Dose: 1 ea Omeprazole (Omeprazole) 20 mg PO ACBREAKFAST [facility] Last Admin: 01/22/17 06:32 Dose: 20 mg Admin: 01/21/17 06:54 Dose: 20 mg Admin: 01/20/17 07:05 Dose: 20 mg Admin: 01/19/17 07:55 Dose: 20 mg Ondansetron HCl (Zofran) 4 mg IVPUSH Q4H PRN PRN Reason: Nausea/Vomiting Flurazepam Hcl [ Flurazepam Hcl] 30 Mg 1 each PO BEDTIME [facility] Last Admin: 01/21/17 21:05 Dose: Admin: 01/20/17 21:18 Dose: Admin: 01/19/17 21:04 Dose: Admin: 01/18/17 20:31 Dose: Capecitabine [Xeloda (]) 1 each PO DAILY [facility] Last Admin: 01/22/17 08:19 Dose: 1 each Capecitabine [Xeloda (]) 2 each PO BEDTIME [facility] Last Admin: 01/21/17 20:59 Dose: 2 each Polyethylene Glycol (Miralax) 17 gm PO DAILY PRN PRN Reason: Constipation Fluticasone/Salmeterol (Advair Diskus 250-50) 1 puff INH BID [facility] Last Admin: 01/22/17 08:36 Dose: 1 puff Admin: 01/21/17 20:16 Dose: 1 puff Admin: 01/21/17 08:42 Dose: 1 puff Admin: 01/20/17 20:41 Dose: 1 puff Admin: 01/20/17 08:44 Dose: 1 disk Admin: 01/19/17 20:12 Dose: 1 disk Admin: 01/19/17 10:01 Dose: 1 disk Admin: 01/18/17 20:09 Dose: 1 disk Sodium Chloride (Saline Flush) 10 ml FLUSH ASDIRECTED PRN PRN Reason: Keep Vein Open Sodium Chloride (Saline Flush) 2.5 ml FLUSH ASDIRECTED PRN PRN Reason: Keep Vein Open Sodium Chloride (Saline Flush) 10 ml FLUSH ASDIRECTED PRN PRN Reason: Keep Vein Open Sodium Chloride (Saline Flush) 2.5 ml FLUSH ASDIRECTED PRN PRN Reason: Keep Vein Open Sucralfate (Carafate) 1 gm PO QID [facility] Last Admin: 01/22/17 06:32 Dose: 1 gm Admin: 01/21/17 23:32 Dose: 1 gm Admin: 01/21/17 18:21 Dose: 1 gm Admin: 01/21/17 11:53 Dose: 1 gm Admin: 01/21/17 05:17 Dose: 1 gm Admin: 01/21/17 00:14 Dose: 1 gm Admin: 01/20/17 17:50 Dose: 1 gm Admin: 01/20/17 11:29 Dose: 1 gm Admin: 01/20/17 07:00 Dose: 1 gm Admin: 01/20/17 00:30 Dose: 1 gm Admin: 01/19/17 20:15 Dose: 1 gm Admin: 01/19/17 11:34 Dose: 1 gm Admin: 01/19/17 05:00 Dose: 1 gm Admin: 01/19/17 00:05 Dose: 1 gm Admin: 01/18/17 17:54 Dose: 1 gm - Assessment Assessment (Free Text/Narrative):: Lung remains well expanded. Chest x-ray was reviewed today. I see no evidence of recurrent pneumothorax. She has had 540 mL out the chest tube. - Plan Plan (Free Text/Narrative):: Will keep the chest tube to suction today. Plan to discontinue the suction at 6 AM on January 23 and check a chest x-ray at 10 AM. If the lung remains expanded we will pull the chest tube out tomorrow and potentially allow her to be discharged later tomorrow.
[2017-01-22] MEDS: Acetaminophen/HYDROcodone 325-5 MG Tab PO PRN (11:49)
--- NOTE | 2017-01-22 12:06 | PCM.PN ---
- General Info Date of Service: 01/22/17 Admission Dx/Problem (Free Text): patient breathing better , had 540 cc sanguinolent fluid succtioned,lungs expanded on cxr - Review of Systems General: Reports: no symptoms HEENT: Reports: no symptoms Pulmonary: Reports: shortness of breath Cardiovascular: Reports: other (tachycardia) Gastrointestinal: Reports: No symptoms Genitourinary: Reports: no symptoms Musculoskeletal: Reports: no symptoms Skin: Reports: no symptoms Neurological: Reports: no symptoms Psychiatric: Reports: no symptoms - Patient Data Vitals - most recent: Last Vital Signs Temp 97.3 F 01/22/17 08:00 Pulse 107 H 01/22/17 08:18 Resp 20 01/22/17 08:00 BP 149/83 H 01/22/17 08:18 Pulse Ox 93 L 01/22/17 08:00 Weight - most recent: 169 lb 11.2 oz I&O - last 24 hours: Intake & Output 01/21/17 01/22/17 01/22/17 22:59 06:59 14:59 Intake Total 2200 250 999 Output Total 300 759 Balance 1900 -509 999 Lab Results last 24 hrs: Laboratory Results - last 24 hr 01/22/17 01/22/17 Range/Units 05:25 05:25 Sodium 138 (136-146) mmol/L Potassium 4.8 (3.5-5.1) mmol/L Chloride 106 (98-110) mmol/L Carbon Dioxide 23 (21-31) mmol/L BUN 18 (6.0-23.0) mg/dL Creatinine 0.7 (0.6-1.5) mg/dL Est Cr Clr Drug Dosing 70.98 mL/min Estimated GFR (MDRD) > 60.0 ml/min Glucose 144 H (60-110) mg/dL Calcium 8.7 L (8.8-10.8) mg/dL Magnesium 1.6 (1.5-2.3) mEq/L Med Orders - Current: Current Medications Acetaminophen/Hydrocodone Bitart ([place] 325-5 Mg) 1 - 2 tab PO Q4H PRN PRN Reason: Pain Last Admin: 01/22/17 11:49 Dose: 2 tab Albuterol/Ipratropium (Duoneb 3.0-0.5 Mg/3 Ml) 3 ml NEB Q4HRRT PRN PRN Reason: Wheezing Last Admin: 01/19/17 16:40 Dose: 3 ml Clonazepam (Klonopin) 0.5 mg PO TID PRN PRN Reason: Anxiety Last Admin: 01/19/17 20:32 Dose: 0.5 mg Diltiazem HCl (Cardizem Cd) 120 mg PO DAILY [facility] Last Admin: 01/22/17 08:18 Dose: 120 mg Fentanyl (Duragesic) 25 mcg TRDERM Q72H [facility] Last Admin: 01/21/17 18:21 Dose: 25 mcg Fluoxetine HCl (Prozac) 20 mg PO BEDTIME [facility] Last Admin: 01/21/17 21:03 Dose: 20 mg Furosemide (Lasix) 20 mg PO DAILY [facility] Last Admin: 01/22/17 08:18 Dose: 20 mg Hydromorphone HCl (Dilaudid) 0.5 mg IVPUSH Q2H PRN PRN Reason: Pain Last Admin: 01/22/17 01:11 Dose: 0.5 mg Sodium Chloride (Sodium Chloride 0.45%) 1,000 mls @ 75 mls/hr IV ASDIRECTED [facility] Last Admin: 01/22/17 07:58 Dose: 75 mls/hr Lisinopril (Prinivil) 10 mg PO DAILY [facility] Last Admin: 01/22/17 08:18 Dose: 10 mg Methylprednisolone Sodium Succinate (Solu-Medrol) 40 mg IVPUSH Q6H [facility] Last Admin: 01/22/17 10:00 Dose: 40 mg Mirtazapine (Remeron) 15 mg PO BEDTIME [facility] Last Admin: 01/21/17 21:03 Dose: 15 mg Miscellaneous Information (Remove Patch) 1 ea TRDERM Q72H [facility] Last Admin: 01/21/17 18:22 Dose: 1 ea Omeprazole (Omeprazole) 20 mg PO ACBREAKFAST [facility] Last Admin: 01/22/17 06:32 Dose: 20 mg Ondansetron HCl (Zofran) 4 mg IVPUSH Q4H PRN PRN Reason: Nausea/Vomiting Flurazepam Hcl [ Flurazepam Hcl] 30 Mg 1 each PO BEDTIME [facility] Last Admin: 01/21/17 21:05 Dose: Not Given Capecitabine [Xeloda (]) 1 each PO DAILY [facility] Last Admin: 01/22/17 08:19 Dose: 1 each Capecitabine [Xeloda (]) 2 each PO BEDTIME [facility] Last Admin: 01/21/17 20:59 Dose: 2 each Polyethylene Glycol (Miralax) 17 gm PO DAILY PRN PRN Reason: Constipation Fluticasone/Salmeterol (Advair Diskus 250-50) 1 puff INH BID [facility] Last Admin: 01/22/17 08:36 Dose: 1 puff Sodium Chloride (Saline Flush) 10 ml FLUSH ASDIRECTED PRN PRN Reason: Keep Vein Open Sodium Chloride (Saline Flush) 2.5 ml FLUSH ASDIRECTED PRN PRN Reason: Keep Vein Open Sodium Chloride (Saline Flush) 10 ml FLUSH ASDIRECTED PRN PRN Reason: Keep Vein Open Sodium Chloride (Saline Flush) 2.5 ml FLUSH ASDIRECTED PRN PRN Reason: Keep Vein Open Sucralfate (Carafate) 1 gm PO QID [facility] Last Admin: 01/22/17 06:32 Dose: 1 gm Discontinued Medications Albuterol/Ipratropium (Duoneb 3.0-0.5 Mg/3 Ml) 3 ml NEB ONETIME ONE Stop: 01/18/17 14:39 Last Admin: 01/18/17 14:46 Dose: 3 ml Albuterol/Ipratropium (Duoneb 3.0-0.5 Mg/3 Ml) Confirm Administered Dose 3 ml .ROUTE .STK-MED ONE Stop: 01/18/17 14:43 Last Admin: 01/18/17 15:27 Dose: Not Given Albuterol/Ipratropium (Duoneb 3.0-0.5 Mg/3 Ml) Confirm Administered Dose 3 ml .ROUTE .STK-MED ONE Stop: 01/19/17 05:27 Last Admin: 01/19/17 05:30 Dose: 3 ml Bupivacaine HCl (Sensorcaine-Mpf 0.5%) Confirm Administered Dose 10 ml .ROUTE .STK-MED ONE Stop: 01/20/17 18:59 Ferrous Sulfate (Ferrous Sulfate) 325 mg PO TID [facility] Last Admin: 01/19/17 05:00 Dose: 325 mg Sodium Chloride (Normal Saline) 500 mls @ 999 mls/hr IV STAT [facility] Last Admin: 01/18/17 15:43 Dose: 80 mls/hr Levofloxacin/Dextrose 750 mg/ (Premix) 150 mls @ 100 mls/hr IV ONETIME ONE Stop: 01/18/17 18:29 Last Admin: 01/18/17 18:12 Dose: Not Given Iopamidol (Isovue-370 (76%)) 50 ml IV ONETIME STA Stop: 01/18/17 15:22 Last Admin: 01/18/17 18:03 Dose: Not Given Lidocaine HCl (Xylocaine 1%) Confirm Administered Dose 50 ml .ROUTE .STK-MED ONE Stop: 01/20/17 18:59 Methylprednisolone Sodium Succinate (Solu-Medrol) 125 mg IVPUSH ONETIME ONE Stop: 01/18/17 16:00 Last Admin: 01/18/17 16:21 Dose: 125 mg Morphine Sulfate (Morphine) 2 mg IVPUSH Q2H PRN PRN Reason: Pain (severe 7-10) Stop: 01/19/17 16:32 Morphine Sulfate (Morphine) Confirm Administered Dose 4 mg .ROUTE .STK-MED ONE Stop: 01/20/17 18:56 Last Admin: 01/20/17 20:31 Dose: Not Given Non-Formulary Medication (Fentanyl [Fentanyl]) 1 patch TD Q72H [facility] Last Admin: 01/18/17 19:14 Dose: Not Given Ondansetron HCl (Zofran Odt) 8 mg PO Q8H [facility] Last Admin: 01/20/17 16:18 Dose: 8 mg Capecitabine [Xeloda (] 3 Tab) 3 each PO BID [facility] Last Admin: 01/21/17 11:52 Dose: 1 each Tiotropium [place] (Spiriva Handihaler) 18 mcg INH DAILY [facility] - Exam General: alert, oriented HEENT: Pupils equal, Pupils reactive, EOMI, Mucous membr. moist/pink Neck: supple Lungs: Wheezing (mild ) Cardiovascular: regular rate, regular rhythm Abdomen: bowel sounds present, soft, no tenderness, no distension (Female) Exam: Normal external exam, Normal speculum exam, Normal bimanual exam Back Exam: normal inspection, full range of motion Extremities: no edema Skin: warm, dry, intact Wound/Incisions: healing well Neurological: no new focal deficit Psy/Mental Status: alert, normal affect, normal mood - Problem List & Annotations (1) Metastatic breast cancer SNOMED Code(s): 307571674 Code(s): C50.919 - MALIGNANT NEOPLASM OF UNSP SITE OF UNSPECIFIED FEMALE BREAST; C79.9 - SECONDARY MALIGNANT NEOPLASM OF UNSPECIFIED SITE Status: Acute Priority: Medium Current Visit: Yes (2) COPD with exacerbation SNOMED Code(s): 416433371, 983133355 Code(s): J44.1 - CHRONIC OBSTRUCTIVE PULMONARY DISEASE W (ACUTE) EXACERBATION Status: Acute Priority: Medium Current Visit: Yes (3) Recurrent right pleural effusion SNOMED Code(s): 89099512 Code(s): J90 - PLEURAL EFFUSION, NOT ELSEWHERE CLASSIFIED Status: Acute Priority: Medium Current Visit: Yes (4) Depression with anxiety SNOMED Code(s): 520086155 Code(s): F41.8 - OTHER SPECIFIED ANXIETY DISORDERS Status: Acute Priority : Medium Current Visit: Yes (5) Pneumothorax on right SNOMED Code(s): 700648099 Code(s): J93.9 - PNEUMOTHORAX, UNSPECIFIED Status: Acute Current Visit: Yes - Problem List Review Problem List Initiated/Reviewed/Updated: Yes - My Orders Last 24 Hours: My Active Orders 01/21/17 21:00 Patient's Own Medication [Ptom] 2 each PO BEDTIME 01/22/17 09:00 Patient's Own Medication [Ptom] 1 each PO DAILY 01/22/17 10:23 Polyethylene Glycol 3350 [MiraLAX] 17 gm PO DAILY PRN 01/22/17 10:48 PT Evaluation and Treatment [CONS] Routine - Assessment Assessment:: A/p Copd exac - improved , will d/c steroids., cont neb treatment Rt pleural effusions / pneumothorax - s/p chest tube , continue suctioning , s/ p chest tube 01/20/17 , f/up sx DVT prof : scd Depression/anxiety - fluoxetine 20 mg po daily , remeron 15 mg po q hs , clonazepam 0.5 mg po TID prn Metastatic breast cancer - continue paleative chemotherapy , f/up oncology sinus tachycardia - improved no PE , secondary to pneumothorax
[2017-01-22] MEDS ORDERED: oxyCODONE 5 MG Tab PO SCH (13:00)
[2017-01-22] MEDS: Ondansetron 4 MG/2 ML SDV IVPUSH PRN ×2 (13:42→17:19)
[2017-01-22] MEDS: Enoxaparin 40 MG/0.4 ML Syringe SUBCUT SCH (13:42)
[2017-01-22] MEDS: oxyCODONE 5 MG Tab PO SCH ×2 (16:12→21:54)
[2017-01-22] MEDS: Metoprolol Tartrate 25 MG Tab PO SCH (20:18)
[2017-01-22] MEDS: Mirtazapine 15 MG Tab PO SCH (20:18)
[2017-01-22] MEDS: LORazepam 0.5 MG Tab PO SCH (20:18)
[2017-01-22] MEDS ORDERED: CAPECITABINE 1000 MG PO SCH (21:00)
[2017-01-23] MEDS: Ondansetron 4 MG/2 ML SDV IVPUSH PRN ×3 (01:26→18:21)
[2017-01-23] MEDS: oxyCODONE 5 MG Tab PO SCH ×4 (04:05→21:28)
--- NOTE | 2017-01-23 06:33 | OR ---
SURGEON: Paul Tidwell M.D. DATE OF PROCEDURE: 01/20/2017 OPERATION PERFORMED: Right closed tube thoracostomy with 24-Togolese chest tube. ELECTRONICS PROCESSING SUPERVISOR: Dr. Srivastava. ANESTHESIA: 1% Xylocaine, 0.5% Marcaine. SEDATION: None. ASA CLASSIFICATION: IIIE. PREOPERATIVE DIAGNOSIS: Iatrogenic pneumothorax following thoracentesis. POSTOPERATIVE DIAGNOSIS: Iatrogenic pneumothorax following thoracentesis. ESTIMATED BLOOD LOSS: Minimal. DESCRIPTION OF PROCEDURE: The patient was taken to the operating room and placed on the operating table around the transfer cart in the supine position. Time-out was called for appropriate identification of the patient and procedure. Chest x-ray was on the view box prior to beginning the procedure. The right anterolateral chest was prepped with Betadine solution. Sterile drapes were applied. The skin incision had been marked out and was now infiltrated with a total of 10 mL of 1% Xylocaine and 10 mL of 0.5% Marcaine solution. As the infiltrative process was occurring, we did inject Xylocaine into the pleural space aspirating air confirming the presence of the pneumothorax. Once that was accomplished, a small skin incision was made and a subcutaneous tunnel created. The right pleural space was entered and a 24-Togolese chest tube was passed into the right pleural space. There was prompt egress of air and the patient's breathing markedly improved. The chest tube was secured to the skin with a 2-0 silk horizontal mattress suture great to bind up the chest tube. A second stitch was placed anteriorly to further close the wound. The chest tube was then dressed with Xeroform and 4x4s, held in place with pink tape. The connection from the chest tube to the collection chamber was also taped with pink tape, and then secured to the patient's lateral abdominal wall. The patient tolerated the procedure well and will be taken back to her room. Chest x-ray is pending. KAYLIE / [place] /[id number]
[2017-01-23 06:39] LABS: CHLORIDE,CL 103 mmol/L (98-110); SODIUM,NA 137 mmol/L (136-146)
[2017-01-23] MEDS: Omeprazole 20 MG Cap.CR PO SCH (06:42)
[2017-01-23] MEDS: Sucralfate 1 GM Tab PO SCH ×3 (06:42→18:21)
[2017-01-23] MEDS: Fluticasone/Salmeterol 250-50 MCG Inhalation Powder 14/Diskus INH SCH ×2 (08:59→20:14)
[2017-01-23] MEDS ORDERED: Exemestane 25 MG PO SCH (09:00)
[2017-01-23] MEDS ORDERED: Albuterol 0.083% 2.5 MG/3 ML Neb Soln NEB SCH (09:00)
[2017-01-23] MEDS: Diltiazem 120 MG Cap.CD PO SCH (09:28)
[2017-01-23] MEDS: Losartan 50 MG Tab PO SCH (09:31)
[2017-01-23] MEDS: Furosemide 20 MG Tab PO SCH (09:34)
[2017-01-23] MEDS: Metoprolol Tartrate 25 MG Tab PO SCH ×2 (09:36→21:00)
[2017-01-23] MEDS: FLUoxetine 20 MG Cap PO SCH (09:42)
--- NOTE | 2017-01-23 10:32 | CR ---
EXAMINATION: Portable chest radiograph. HISTORY: Pneumothorax. FINDINGS: The trachea is midline. There is a left-sided homero catheter noted. There is a right-sided chest tub e in stable position. No significant residual pneumothorax or pleural effusion. Right basilar atelec tasis and/or infiltrate is noted. There is stable blunting of the left costophrenic angle with left basilar atelectasis also present. Osseous structures appear unremarkable. IMPRESSION: 1. Stable right-sided chest tube with bibasilar atelectasis. No residual pneumothorax or significant pleural effusion.
[2017-01-23] MEDS: Sodium Chloride 0.45% 1,000 ML IV SCH (11:21)
--- NOTE | 2017-01-23 12:55 | PCM.SN ---
- Free Text/Narrative Note: CXR reviewed and discussed with Dr. Ch. Patient had been on underwater seal only for 4 hours and lung has remained expanded. Chest tube removed at bedside and occlusive dressing applied. Will check PA/ Lat CXR at 1500 hours.
[2017-01-23] MEDS: Enoxaparin 40 MG/0.4 ML Syringe SUBCUT SCH (13:11)
[2017-01-23] MEDS: Desvenlafaxine Succinate [Pristiq] 100 MG PO SCH (14:19)
--- NOTE | 2017-01-23 15:40 | CR ---
EXAMINATION: Two-view chest (PA and Lateral views). HISTORY: Chest tube removal. FINDINGS: The trachea is midline. The cardiomediastinal silhouette is stable. There is a small right-sided hyd ropneumothorax. There is a trace left-sided pleural effusion. Mild bibasilar atelectasis. There is a left-sided homero catheter noted. Subcutaneous air is noted along the right chest secondary to chest tube removal. Osseous structures appear unremarkable. IMPRESSION: 1. Small right hydropneumothorax status post chest tube removal. 2. Trace left sided pleural effusion.
--- NOTE | 2017-01-23 16:26 | PCM.PN ---
- General Info Date of Service: 01/23/17 Admission Dx/Problem (Free Text): patient s/p chest tube removal , for repeat cxr. CxR showes rt hydropneumothorax and subcutaneous emphysema. Subjective Update: feeling better , still mild sob Functional Status: Reports: pain controlled - Review of Systems General: Reports: no symptoms HEENT: Reports: no symptoms Pulmonary: Reports: shortness of breath. Denies: wheezing Cardiovascular: Reports: no symptoms Gastrointestinal: Reports: No symptoms Genitourinary: Reports: no symptoms Musculoskeletal: Reports: no symptoms Skin: Reports: no symptoms Neurological: Reports: no symptoms Psychiatric: Reports: no symptoms - Patient Data Vitals - most recent: Last Vital Signs Temp 97.0 F 01/23/17 11:36 Pulse 88 01/23/17 11:36 Resp 20 01/23/17 11:36 BP 136/84 01/23/17 11:36 Pulse Ox 91 L 01/23/17 11:36 Weight - most recent: 169 lb 11.2 oz I&O - last 24 hours: Intake & Output 01/23/17 01/23/17 01/23/17 06:59 14:59 22:59 Intake Total 350 Output Total 980 Balance -630 Lab Results last 24 hrs: Laboratory Results - last 24 hr 01/23/17 01/23/17 Range/Units 05:15 05:15 WBC 12.33 H (4.0-11.0) K/uL RBC 5.48 (4.30-5.90) M/uL Hgb 14.2 (12.0-16.0) g/dL Hct 47.4 H (36.0-46.0) % MCV 86.5 (80.0-98.0) fL MCH 25.9 L (27.0-32.0) pg MCHC 30.0 L (31.0-37.0) g/dL RDW Std Deviation 55.6 (28.0-62.0) fl RDW Coeff of George 18 H (11.0-15.0) % Plt Count 208 (150-400) K/uL MPV 10.30 (7.40-12.00) fL Neut % (Auto) 75.7 (48.0-80.0) % Lymph % (Auto) 12.8 L (16.0-40.0) % [place] % (Auto) 11.4 (0.0-15.0) % Eos % (Auto) 0.0 (0.0-7.0) % Baso % (Auto) 0.1 (0.0-1.5) % Neut # 9.3 H (1.4-5.7) K/uL Lymph # 1.6 (0.6-2.4) K/uL [place] # 1.4 H (0.0-0.8) K/uL Eos # 0.0 (0.0-0.7) K/uL Baso # 0.0 (0.0-0.1) K/uL Nucleated RBC % 0.0 /100WBC Nucleated RBCs # 0 K/uL Sodium 137 (136-146) mmol/L Potassium 5.0 (3.5-5.1) mmol/L Chloride 103 (98-110) mmol/L Carbon Dioxide 26 (21-31) mmol/L BUN 21 (6.0-23.0) mg/dL Creatinine 0.7 (0.6-1.5) mg/dL Est Cr Clr Drug Dosing 70.98 mL/min Estimated GFR (MDRD) > 60.0 ml/min Glucose 94 (60-110) mg/dL Calcium 8.3 L (8.8-10.8) mg/dL Total Bilirubin 0.3 (0.1-1.5) mg/dL AST 44 H (5-40) IU/L ALT 61 H (8-54) IU/L Alkaline Phosphatase 55 (40-150) Total Protein 5.7 L (6.0-8.0) g/dL Albumin 3.1 L (3.5-5.0) g/dL Globulin 2.6 (2.0-3.5) g/dL Albumin/Globulin Ratio 1.2 L (1.3-2.8) Med Orders - Current: Current Medications Albuterol (Proventil Neb Soln) 2.5 mg NEB DAILY HILDA Clonazepam (Klonopin) 0.5 mg PO TID PRN PRN Reason: Anxiety Last Admin: 01/19/17 20:32 Dose: 0.5 mg Diltiazem HCl (Cardizem Cd) 120 mg PO DAILY HILDA Last Admin: 01/23/17 09:28 Dose: 120 mg Enoxaparin Sodium (Lovenox) 40 mg SUBCUT Q24H [facility] Last Admin: 01/23/17 13:11 Dose: 40 mg Fentanyl (Duragesic) 25 mcg TRDERM Q72H [facility] Last Admin: 01/21/17 18:21 Dose: 25 mcg Fluoxetine HCl (Prozac) 20 mg PO DAILY [facility] Last Admin: 01/23/17 09:42 Dose: 20 mg Furosemide (Lasix) 20 mg PO DAILY [facility] Last Admin: 01/23/17 09:34 Dose: 20 mg Hydromorphone HCl (Dilaudid) 0.5 mg IVPUSH Q2H PRN PRN Reason: Pain Last Admin: 01/22/17 01:11 Dose: 0.5 mg Sodium Chloride (Sodium Chloride 0.45%) 1,000 mls @ 75 mls/hr IV ASDIRECTED [facility] Last Admin: 01/23/17 11:21 Dose: 75 mls/hr Lorazepam (Ativan) 0.5 mg PO BEDTIME [facility] Last Admin: 01/22/17 20:18 Dose: 0.5 mg Losartan Potassium (Cozaar) 50 mg PO DAILY [facility] Last Admin: 01/23/17 09:31 Dose: 50 mg Metoprolol Tartrate (Lopressor) 25 mg PO Q12HR [facility] Last Admin: 01/23/17 09:36 Dose: 25 mg Mirtazapine (Remeron) 15 mg PO BEDTIME [facility] Last Admin: 01/22/17 20:18 Dose: 15 mg Omeprazole (Omeprazole) 20 mg PO ACBREAKFAST [facility] Last Admin: 01/23/17 06:42 Dose: 20 mg Ondansetron HCl (Zofran) 4 mg IVPUSH Q4H PRN PRN Reason: Nausea/Vomiting Last Admin: 01/23/17 09:08 Dose: 4 mg Oxycodone HCl (Oxycodone) 10 mg PO Q6H [facility] Last Admin: 01/23/17 10:21 Dose: 10 mg Capecitabine [Xeloda (] 500 Mg) 1 each PO DAILY [facility] Last Admin: 01/23/17 09:55 Dose: 1 each Capecitabine [Xeloda (] 500 Mg) 2 each PO BEDTIME [facility] Last Admin: 01/22/17 20:19 Dose: 2 each Desvenlafaxine Succinate [Pristiq] 100 Mg 1 each PO DAILY [facility] Last Admin: 01/23/17 14:19 Dose: 1 each Polyethylene Glycol (Miralax) 17 gm PO DAILY PRN PRN Reason: Constipation Last Admin: 01/22/17 12:59 Dose: 17 gm Fluticasone/Salmeterol (Advair Diskus 250-50) 1 puff INH BID [facility] Last Admin: 01/23/17 08:59 Dose: 1 puff Sodium Chloride (Saline Flush) 10 ml FLUSH ASDIRECTED PRN PRN Reason: Keep Vein Open Sodium Chloride (Saline Flush) 2.5 ml FLUSH ASDIRECTED PRN PRN Reason: Keep Vein Open Sucralfate (Carafate) 1 gm PO QID [facility] Last Admin: 01/23/17 12:21 Dose: 1 gm Discontinued Medications Acetaminophen/Hydrocodone Bitart ([place] 325-5 Mg) 1 - 2 tab PO Q4H PRN PRN Reason: Pain Last Admin: 01/22/17 11:49 Dose: 2 tab Albuterol/Ipratropium (Duoneb 3.0-0.5 Mg/3 Ml) 3 ml NEB ONETIME ONE Stop: 01/18/17 14:39 Last Admin: 01/18/17 14:46 Dose: 3 ml Albuterol/Ipratropium (Duoneb 3.0-0.5 Mg/3 Ml) Confirm Administered Dose 3 ml .ROUTE .STK-MED ONE Stop: 01/18/17 14:43 Last Admin: 01/18/17 15:27 Dose: Not Given Albuterol/Ipratropium (Duoneb 3.0-0.5 Mg/3 Ml) 3 ml NEB Q4HRRT PRN PRN Reason: Wheezing Last Admin: 01/19/17 16:40 Dose: 3 ml Albuterol/Ipratropium (Duoneb 3.0-0.5 Mg/3 Ml) Confirm Administered Dose 3 ml .ROUTE .STK-MED ONE Stop: 01/19/17 05:27 Last Admin: 01/19/17 05:30 Dose: 3 ml Bupivacaine HCl (Sensorcaine-Mpf 0.5%) Confirm Administered Dose 10 ml .ROUTE .STK-MED ONE Stop: 01/20/17 18:59 Ferrous Sulfate (Ferrous Sulfate) 325 mg PO TID [facility] Last Admin: 01/19/17 05:00 Dose: 325 mg Fluoxetine HCl (Prozac) 20 mg PO BEDTIME [facility] Last Admin: 01/21/17 21:03 Dose: 20 mg Sodium Chloride (Normal Saline) 500 mls @ 999 mls/hr IV STAT [facility] Last Admin: 01/18/17 15:43 Dose: 80 mls/hr Levofloxacin/Dextrose 750 mg/ (Premix) 150 mls @ 100 mls/hr IV ONETIME ONE Stop: 01/18/17 18:29 Last Admin: 01/18/17 18:12 Dose: Not Given Iopamidol (Isovue-370 (76%)) 50 ml IV ONETIME STA Stop: 01/18/17 15:22 Last Admin: 01/18/17 18:03 Dose: Not Given Letrozole (Femara) 2.5 mg PO DAILY [facility] Last Admin: 01/23/17 09:57 Dose: 2.5 mg Lidocaine HCl (Xylocaine 1%) Confirm Administered Dose 50 ml .ROUTE .STK-MED ONE Stop: 01/20/17 18:59 Lisinopril (Prinivil) 10 mg PO DAILY [facility] Last Admin: 01/22/17 08:18 Dose: 10 mg Methylprednisolone Sodium Succinate (Solu-Medrol) 125 mg IVPUSH ONETIME ONE Stop: 01/18/17 16:00 Last Admin: 01/18/17 16:21 Dose: 125 mg Methylprednisolone Sodium Succinate (Solu-Medrol) 40 mg IVPUSH Q6H [facility] Last Admin: 01/22/17 10:00 Dose: 40 mg Mirtazapine (Remeron) 15 mg PO BEDTIME [facility] Last Admin: 01/21/17 21:03 Dose: 15 mg Miscellaneous Information (Remove Patch) 1 ea TRDERM Q72H [facility] Last Admin: 01/21/17 18:22 Dose: 1 ea Morphine Sulfate (Morphine) 2 mg IVPUSH Q2H PRN PRN Reason: Pain (severe 7-10) Stop: 01/19/17 16:32 Morphine Sulfate (Morphine) Confirm Administered Dose 4 mg .ROUTE .STK-MED ONE Stop: 01/20/17 18:56 Last Admin: 01/20/17 20:31 Dose: Not Given Non-Formulary Medication (Fentanyl [Fentanyl]) 1 patch TD Q72H [facility] Last Admin: 01/18/17 19:14 Dose: Not Given Non-Formulary Medication (Capecitabine [Capecitabine]) 1,000 mg PO BEDTIME [facility] Ondansetron HCl (Zofran Odt) 8 mg PO Q8H [facility] Last Admin: 01/20/17 16:18 Dose: 8 mg Oxycodone HCl (Oxycodone) 10 mg PO Q6H [facility] Last Admin: 01/22/17 13:41 Dose: Not Given Capecitabine [Xeloda (] 3 Tab) 3 each PO BID [facility] Last Admin: 01/21/17 11:52 Dose: 1 each Flurazepam Hcl [ Flurazepam Hcl] 30 Mg 1 each PO BEDTIME [facility] Last Admin: 01/21/17 21:05 Dose: Not Given Exemestane 25 Mg 1 each PO DAILY [facility] Last Admin: 01/23/17 09:59 Dose: Not Given Sodium Chloride (Saline Flush) 10 ml FLUSH ASDIRECTED PRN PRN Reason: Keep Vein Open Sodium Chloride (Saline Flush) 2.5 ml FLUSH ASDIRECTED PRN PRN Reason: Keep Vein Open Tiotropium [place] (Spiriva Handihaler) 18 mcg INH DAILY HILDA - Exam Quality Assessment: supplemental oxygen General: alert, oriented HEENT: Pupils equal Neck: supple, trachea midline. No: no JVD Lungs: Wheezing Cardiovascular: regular rate, regular rhythm Abdomen: bowel sounds present, soft, no tenderness (Female) Exam: Normal external exam Extremities: no edema Skin: warm, dry, intact Wound/Incisions: healing well Neurological: no new focal deficit Psy/Mental Status: alert - Problem List & Annotations (1) Metastatic breast cancer SNOMED Code(s): 252306350 Code(s): C50.919 - MALIGNANT NEOPLASM OF UNSP SITE OF UNSPECIFIED FEMALE BREAST; C79.9 - SECONDARY MALIGNANT NEOPLASM OF UNSPECIFIED SITE Status: Acute Priority: Medium Current Visit: Yes (2) COPD with exacerbation SNOMED Code(s): 517168239, 944031871 Code(s): J44.1 - CHRONIC OBSTRUCTIVE PULMONARY DISEASE W (ACUTE) EXACERBATION Status: Acute Priority: Medium Current Visit: Yes (3) Recurrent right pleural effusion SNOMED Code(s): 88854243 Code(s): J90 - PLEURAL EFFUSION, NOT ELSEWHERE CLASSIFIED Status: Acute Priority: Medium Current Visit: Yes (4) Depression with anxiety SNOMED Code(s): 239595846 Code(s): F41.8 - OTHER SPECIFIED ANXIETY DISORDERS Status: Acute Priority : Medium Current Visit: Yes (5) Pneumothorax on right SNOMED Code(s): 482544901 Code(s): J93.9 - PNEUMOTHORAX, UNSPECIFIED Status: Acute Current Visit: Yes - Problem List Review Problem List Initiated/Reviewed/Updated: Yes - My Orders Last 24 Hours: My Active Orders 01/22/17 16:00 oxyCODONE 10 mg PO Q6H 01/22/17 21:00 LORazepam [Ativan] 0.5 mg PO BEDTIME Metoprolol Tartrate [Lopressor] 25 mg PO Q12HR Mirtazapine [Remeron] 15 mg PO BEDTIME 01/23/17 09:00 Albuterol [Proventil Neb Soln] 2.5 mg NEB DAILY FLUoxetine [PROzac] 20 mg PO DAILY Losartan [Cozaar] 50 mg PO DAILY 01/23/17 12:48 Patient's Own Medication [Ptom] 1 each PO DAILY - Assessment Assessment:: A/p Copd exac - improved , cont neb treatment Rt pleural effusions / pneumothorax - s/p chest tube removal , f/up sx DVT prof : scd Depression/anxiety - fluoxetine 20 mg po daily , remeron 15 mg po q hs , clonazepam 0.5 mg po TID prn Metastatic breast cancer - continue paleative chemotherapy , f/up oncology sinus tachycardia - resolved , patient was restarted on some of her home meds .
--- NOTE | 2017-01-23 16:29 | CR ---
EXAM DATE: 01/20/17 PATIENT'S AGE: 56 Patient: KATELYN CARMONA Facility: [place], [place] Site . Site : [id number] Study: XRay Chest [id number]/3/2017 8:50:27 PM Ordering Physician: Jazzy Garcia Final Report: Indication: Post chest tube placement Technique: Chest 1 view Comparison: 01/20/2017 at 3:31 p.m. Findings/Impression: Interval placement of right chest tube with its tip in the perihilar region. A thin linear density in the periphery of the right upper lung could represent a small residual pneumothorax or artifact. Recommend followup. Persistent medial retrocardiac consolidation or atelectasis. Small ill-defined pulmonary opacities. Stable cardiomediastinal silhouette. Dictated by Scotty Odell MD @ 01/20/2017 8:59:34 PM Dictated by: Scotty Odell MD @ 01/20/2017 20:59:44 (Electronic Signature) Report Signed by Proxy and Original Signed Document filed in the Medical Record. [facility]
--- NOTE | 2017-01-23 16:38 | PCM.SURGPN ---
- General Info Date of Service: 01/23/17 Date of Surgery/Procedure: 01/20/17 POD#: 3 Post-Op Diagnosis: Iatrogenic pneumothorax Admission Diagnosis/Problem: Pleural effusion Functional Status: Reports: pain controlled - Review of Systems General: Reports: weakness. 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 Denies: cough, sputum, hemoptysis Cardiovascular: Reports: chest pain Gastrointestinal: Denies: Abdominal pain, Constipation, Decreased appetite Genitourinary: Reports: no symptoms Musculoskeletal: Reports: no symptoms Skin: Reports: no symptoms Neurological: Reports: no symptoms Psychiatric: Reports: no symptoms - Patient Data Vitals - most recent: Last Vital Signs Temp 97.0 F 01/23/17 11:36 Pulse 88 01/23/17 11:36 Resp 20 01/23/17 11:36 BP 136/84 01/23/17 11:36 Pulse Ox 91 L 01/23/17 11:36 Weight - most recent: 169 lb 11.2 oz I&O - last 24 hours: Intake & Output 01/23/17 01/23/17 01/23/17 03:59 11:59 19:59 Intake Total 1000 350 Output Total 980 Balance 1000 -630 Lab Results last 24 hrs: Laboratory Results - last 24 hr 01/23/17 01/23/17 Range/Units 05:15 05:15 WBC 12.33 H (4.0-11.0) K/uL RBC 5.48 (4.30-5.90) M/uL Hgb 14.2 (12.0-16.0) g/dL Hct 47.4 H (36.0-46.0) % MCV 86.5 (80.0-98.0) fL MCH 25.9 L (27.0-32.0) pg MCHC 30.0 L (31.0-37.0) g/dL RDW Std Deviation 55.6 (28.0-62.0) fl RDW Coeff of George 18 H (11.0-15.0) % Plt Count 208 (150-400) K/uL MPV 10.30 (7.40-12.00) fL Neut % (Auto) 75.7 (48.0-80.0) % Lymph % (Auto) 12.8 L (16.0-40.0) % [place] % (Auto) 11.4 (0.0-15.0) % Eos % (Auto) 0.0 (0.0-7.0) % Baso % (Auto) 0.1 (0.0-1.5) % Neut # 9.3 H (1.4-5.7) K/uL Lymph # 1.6 (0.6-2.4) K/uL [place] # 1.4 H (0.0-0.8) K/uL Eos # 0.0 (0.0-0.7) K/uL Baso # 0.0 (0.0-0.1) K/uL Nucleated RBC % 0.0 /100WBC Nucleated RBCs # 0 K/uL Sodium 137 (136-146) mmol/L Potassium 5.0 (3.5-5.1) mmol/L Chloride 103 (98-110) mmol/L Carbon Dioxide 26 (21-31) mmol/L BUN 21 (6.0-23.0) mg/dL Creatinine 0.7 (0.6-1.5) mg/dL Est Cr Clr Drug Dosing 70.98 mL/min Estimated GFR (MDRD) > 60.0 ml/min Glucose 94 (60-110) mg/dL Calcium 8.3 L (8.8-10.8) mg/dL Total Bilirubin 0.3 (0.1-1.5) mg/dL AST 44 H (5-40) IU/L ALT 61 H (8-54) IU/L Alkaline Phosphatase 55 (40-150) Total Protein 5.7 L (6.0-8.0) g/dL Albumin 3.1 L (3.5-5.0) g/dL Globulin 2.6 (2.0-3.5) g/dL Albumin/Globulin Ratio 1.2 L (1.3-2.8) Med Orders - Current: Current Medications Albuterol (Proventil Neb Soln) 2.5 mg NEB DAILY [facility] Clonazepam (Klonopin) 0.5 mg PO TID PRN PRN Reason: Anxiety Last Admin: 01/19/17 20:32 Dose: 0.5 mg Diltiazem HCl (Cardizem Cd) 120 mg PO DAILY [facility] Last Admin: 01/23/17 09:28 Dose: 120 mg Enoxaparin Sodium (Lovenox) 40 mg SUBCUT Q24H [facility] Last Admin: 01/23/17 13:11 Dose: 40 mg Fentanyl (Duragesic) 25 mcg TRDERM Q72H [facility] Last Admin: 01/21/17 18:21 Dose: 25 mcg Fluoxetine HCl (Prozac) 20 mg PO DAILY [facility] Last Admin: 01/23/17 09:42 Dose: 20 mg Furosemide (Lasix) 20 mg PO DAILY [facility] Last Admin: 01/23/17 09:34 Dose: 20 mg Hydromorphone HCl (Dilaudid) 0.5 mg IVPUSH Q2H PRN PRN Reason: Pain Last Admin: 01/22/17 01:11 Dose: 0.5 mg Sodium Chloride (Sodium Chloride 0.45%) 1,000 mls @ 75 mls/hr IV ASDIRECTED [facility] Last Admin: 01/23/17 11:21 Dose: 75 mls/hr Lorazepam (Ativan) 0.5 mg PO BEDTIME [facility] Last Admin: 01/22/17 20:18 Dose: 0.5 mg Losartan Potassium (Cozaar) 50 mg PO DAILY [facility] Last Admin: 01/23/17 09:31 Dose: 50 mg Metoprolol Tartrate (Lopressor) 25 mg PO Q12HR [facility] Last Admin: 01/23/17 09:36 Dose: 25 mg Mirtazapine (Remeron) 15 mg PO BEDTIME [facility] Last Admin: 01/22/17 20:18 Dose: 15 mg Omeprazole (Omeprazole) 20 mg PO ACBREAKFAST [facility] Last Admin: 01/23/17 06:42 Dose: 20 mg Ondansetron HCl (Zofran) 4 mg IVPUSH Q4H PRN PRN Reason: Nausea/Vomiting Last Admin: 01/23/17 09:08 Dose: 4 mg Oxycodone HCl (Oxycodone) 10 mg PO Q6H [facility] Last Admin: 01/23/17 10:21 Dose: 10 mg Capecitabine [Xeloda (] 500 Mg) 1 each PO DAILY [facility] Last Admin: 01/23/17 09:55 Dose: 1 each Capecitabine [Xeloda (] 500 Mg) 2 each PO BEDTIME [facility] Last Admin: 01/22/17 20:19 Dose: 2 each Desvenlafaxine Succinate [Pristiq] 100 Mg 1 each PO DAILY [facility] Last Admin: 01/23/17 14:19 Dose: 1 each Polyethylene Glycol (Miralax) 17 gm PO DAILY PRN PRN Reason: Constipation Last Admin: 01/22/17 12:59 Dose: 17 gm Fluticasone/Salmeterol (Advair Diskus 250-50) 1 puff INH BID [facility] Last Admin: 01/23/17 08:59 Dose: 1 puff Sodium Chloride (Saline Flush) 10 ml FLUSH ASDIRECTED PRN PRN Reason: Keep Vein Open Sodium Chloride (Saline Flush) 2.5 ml FLUSH ASDIRECTED PRN PRN Reason: Keep Vein Open Sucralfate (Carafate) 1 gm PO QID [facility] Last Admin: 01/23/17 12:21 Dose: 1 gm Discontinued Medications Acetaminophen/Hydrocodone Bitart ([place] 325-5 Mg) 1 - 2 tab PO Q4H PRN PRN Reason: Pain Last Admin: 01/22/17 11:49 Dose: 2 tab Albuterol/Ipratropium (Duoneb 3.0-0.5 Mg/3 Ml) 3 ml NEB ONETIME ONE Stop: 01/18/17 14:39 Last Admin: 01/18/17 14:46 Dose: 3 ml Albuterol/Ipratropium (Duoneb 3.0-0.5 Mg/3 Ml) Confirm Administered Dose 3 ml .ROUTE .STK-MED ONE Stop: 01/18/17 14:43 Last Admin: 01/18/17 15:27 Dose: Not Given Albuterol/Ipratropium (Duoneb 3.0-0.5 Mg/3 Ml) 3 ml NEB Q4HRRT PRN PRN Reason: Wheezing Last Admin: 01/19/17 16:40 Dose: 3 ml Albuterol/Ipratropium (Duoneb 3.0-0.5 Mg/3 Ml) Confirm Administered Dose 3 ml .ROUTE .STK-MED ONE Stop: 01/19/17 05:27 Last Admin: 01/19/17 05:30 Dose: 3 ml Bupivacaine HCl (Sensorcaine-Mpf 0.5%) Confirm Administered Dose 10 ml .ROUTE .STK-MED ONE Stop: 01/20/17 18:59 Ferrous Sulfate (Ferrous Sulfate) 325 mg PO TID [facility] Last Admin: 01/19/17 05:00 Dose: 325 mg Fluoxetine HCl (Prozac) 20 mg PO BEDTIME [facility] Last Admin: 01/21/17 21:03 Dose: 20 mg Sodium Chloride (Normal Saline) 500 mls @ 999 mls/hr IV STAT [facility] Last Admin: 01/18/17 15:43 Dose: 80 mls/hr Levofloxacin/Dextrose 750 mg/ (Premix) 150 mls @ 100 mls/hr IV ONETIME ONE Stop: 01/18/17 18:29 Last Admin: 01/18/17 18:12 Dose: Not Given Iopamidol (Isovue-370 (76%)) 50 ml IV ONETIME [facility] Stop: 01/18/17 15:22 Last Admin: 01/18/17 18:03 Dose: Not Given Letrozole (Femara) 2.5 mg PO DAILY [facility] Last Admin: 01/23/17 09:57 Dose: 2.5 mg Lidocaine HCl (Xylocaine 1%) Confirm Administered Dose 50 ml .ROUTE .STK-MED ONE Stop: 01/20/17 18:59 Lisinopril (Prinivil) 10 mg PO DAILY [facility] Last Admin: 01/22/17 08:18 Dose: 10 mg Methylprednisolone Sodium Succinate (Solu-Medrol) 125 mg IVPUSH ONETIME ONE Stop: 01/18/17 16:00 Last Admin: 01/18/17 16:21 Dose: 125 mg Methylprednisolone Sodium Succinate (Solu-Medrol) 40 mg IVPUSH Q6H [facility] Last Admin: 01/22/17 10:00 Dose: 40 mg Mirtazapine (Remeron) 15 mg PO BEDTIME [facility] Last Admin: 01/21/17 21:03 Dose: 15 mg Miscellaneous Information (Remove Patch) 1 ea TRDERM Q72H [facility] Last Admin: 01/21/17 18:22 Dose: 1 ea Morphine Sulfate (Morphine) 2 mg IVPUSH Q2H PRN PRN Reason: Pain (severe 7-10) Stop: 01/19/17 16:32 Morphine Sulfate (Morphine) Confirm Administered Dose 4 mg .ROUTE .STK-MED ONE Stop: 01/20/17 18:56 Last Admin: 01/20/17 20:31 Dose: Not Given Non-Formulary Medication (Fentanyl [Fentanyl]) 1 patch TD Q72H [facility] Last Admin: 01/18/17 19:14 Dose: Not Given Non-Formulary Medication (Capecitabine [Capecitabine]) 1,000 mg PO BEDTIME [facility] Ondansetron HCl (Zofran Odt) 8 mg PO Q8H [facility] Last Admin: 01/20/17 16:18 Dose: 8 mg Oxycodone HCl (Oxycodone) 10 mg PO Q6H [facility] Last Admin: 01/22/17 13:41 Dose: Not Given Capecitabine [Xeloda (] 3 Tab) 3 each PO BID [facility] Last Admin: 01/21/17 11:52 Dose: 1 each Flurazepam Hcl [ Flurazepam Hcl] 30 Mg 1 each PO BEDTIME [facility] Last Admin: 01/21/17 21:05 Dose: Not Given Exemestane 25 Mg 1 each PO DAILY [facility] Last Admin: 01/23/17 09:59 Dose: Not Given Sodium Chloride (Saline Flush) 10 ml FLUSH ASDIRECTED PRN PRN Reason: Keep Vein Open Sodium Chloride (Saline Flush) 2.5 ml FLUSH ASDIRECTED PRN PRN Reason: Keep Vein Open Tiotropium [place] (Spiriva Handihaler) 18 mcg INH DAILY [facility] - Exam Wound/Incisions: dressing dry and intact Quality Assessment: supplemental oxygen General: alert, oriented, cooperative, no acute distress HEENT: Pupils equal, Pupils reactive. No: Scleral icterus Neck: supple Lungs: Clear to auscultation, Decreased breath sounds, Wheezing Cardiovascular: regular rate, regular rhythm, tachycardia Abdomen: bowel sounds present, soft, no tenderness Extremities: no edema Skin: warm, dry, intact Neurological: no new focal deficit Psy/Mental Status: alert, normal affect, normal mood - Problem List & Annotations (1) Iatrogenic pneumothorax SNOMED Code(s): 025591301 Code(s): J95.811 - POSTPROCEDURAL PNEUMOTHORAX Status: Acute Priority: High Current Visit: Yes Annotation/Comment:: Following thoracentesis. Right side. (2) Pneumothorax, postprocedural SNOMED Code(s): 428190203 Code(s): J95.811 - POSTPROCEDURAL PNEUMOTHORAX Status: Acute Priority: High Current Visit: Yes (3) COPD with exacerbation SNOMED Code(s): 293394835, 254561992 Code(s): J44.1 - CHRONIC OBSTRUCTIVE PULMONARY DISEASE W (ACUTE) EXACERBATION Status: Acute Priority: Medium Current Visit: Yes (4) Depression with anxiety SNOMED Code(s): 634411620 Code(s): F41.8 - OTHER SPECIFIED ANXIETY DISORDERS Status: Acute Priority : Medium Current Visit: Yes (5) Metastatic breast cancer SNOMED Code(s): 060819550 Code(s): C50.919 - MALIGNANT NEOPLASM OF UNSP SITE OF UNSPECIFIED FEMALE BREAST; C79.9 - SECONDARY MALIGNANT NEOPLASM OF UNSPECIFIED SITE Status: Acute Priority: Medium Current Visit: Yes (6) Recurrent right pleural effusion SNOMED Code(s): 86930697 Code(s): J90 - PLEURAL EFFUSION, NOT ELSEWHERE CLASSIFIED Status: Acute Priority: Medium Current Visit: Yes - Problem List Review Problem List Initiated/Reviewed/Updated: Yes - My Orders Last 24 Hours: Active Orders 24 hr Category Date Time Status Communication Order [RC] ROUTINE Care 01/23/17 06:00 Active Albuterol [Proventil Neb Soln] Med 01/23/17 09:00 Active 2.5 mg NEB DAILY FLUoxetine [PROzac] Med 01/23/17 09:00 Active 20 mg PO DAILY LORazepam [Ativan] Med 01/22/17 21:00 Active 0.5 mg PO BEDTIME Losartan [Cozaar] Med 01/23/17 09:00 Active 50 mg PO DAILY Metoprolol Tartrate [Lopressor] Med 01/22/17 21:00 Active 25 mg PO Q12HR Mirtazapine [Remeron] Med 01/22/17 21:00 Active 15 mg PO BEDTIME Patient's Own Medication [Ptom] Med 01/23/17 12:48 Active 1 each PO DAILY oxyCODONE Med 01/22/17 16:00 Active 10 mg PO Q6H Medication Orders Albuterol (Proventil Neb Soln) 2.5 mg NEB DAILY [facility] Clonazepam (Klonopin) 0.5 mg PO TID PRN PRN Reason: Anxiety Last Admin: 01/19/17 20:32 Dose: 0.5 mg Admin: 01/19/17 09:10 Dose: 0.5 mg Diltiazem HCl (Cardizem Cd) 120 mg PO DAILY [facility] Last Admin: 01/23/17 09:28 Dose: 120 mg Admin: 01/22/17 08:18 Dose: 120 mg Admin: 01/21/17 09:25 Dose: 120 mg Admin: 01/20/17 12:28 Dose: 120 mg Enoxaparin Sodium (Lovenox) 40 mg SUBCUT Q24H [facility] Last Admin: 01/23/17 13:11 Dose: 40 mg Admin: 01/22/17 13:42 Dose: 40 mg Fentanyl (Duragesic) 25 mcg TRDERM Q72H [facility] Last Admin: 01/21/17 18:21 Dose: 25 mcg Admin: 01/18/17 19:25 Dose: 25 mcg Fluoxetine HCl (Prozac) 20 mg PO DAILY [facility] Last Admin: 01/23/17 09:42 Dose: 20 mg Furosemide (Lasix) 20 mg PO DAILY [facility] Last Admin: 01/23/17 09:34 Dose: 20 mg Admin: 01/22/17 08:18 Dose: 20 mg Admin: 01/21/17 09:25 Dose: 20 mg Admin: 01/20/17 09:10 Dose: 20 mg Admin: 01/19/17 08:00 Dose: 20 mg Hydromorphone HCl (Dilaudid) 0.5 mg IVPUSH Q2H PRN PRN Reason: Pain Last Admin: 01/22/17 01:11 Dose: 0.5 mg Admin: 01/21/17 19:11 Dose: 0.5 mg Admin: 01/21/17 16:00 Dose: 0.5 mg Admin: 01/21/17 07:26 Dose: 0.5 mg Admin: 01/20/17 22:27 Dose: 0.5 mg Sodium Chloride (Sodium Chloride 0.45%) 1,000 mls @ 75 mls/hr IV ASDIRECTED [facility] Last Admin: 01/23/17 11:21 Dose: 75 mls/hr Infusion: 01/23/17 11:10 Dose: 75 mls/hr Admin: 01/22/17 21:50 Dose: 75 mls/hr Infusion: 01/22/17 21:18 Dose: 75 mls/hr Admin: 01/22/17 07:58 Dose: 75 mls/hr Infusion: 01/22/17 07:48 Dose: 75 mls/hr Admin: 01/21/17 18:28 Dose: 75 mls/hr Infusion: 01/21/17 18:28 Dose: 75 mls/hr Admin: 01/21/17 05:19 Dose: 75 mls/hr Infusion: 01/21/17 01:51 Dose: 75 mls/hr Admin: 01/20/17 12:31 Dose: 75 mls/hr Lorazepam (Ativan) 0.5 mg PO BEDTIME [facility] Last Admin: 01/22/17 20:18 Dose: 0.5 mg Losartan Potassium (Cozaar) 50 mg PO DAILY [facility] Last Admin: 01/23/17 09:31 Dose: 50 mg Metoprolol Tartrate (Lopressor) 25 mg PO Q12HR [facility] Last Admin: 01/23/17 09:36 Dose: 25 mg Admin: 01/22/17 20:18 Dose: 25 mg Mirtazapine (Remeron) 15 mg PO BEDTIME [facility] Last Admin: 01/22/17 20:18 Dose: 15 mg Omeprazole (Omeprazole) 20 mg PO ACBREAKFAST [facility] Last Admin: 01/23/17 06:42 Dose: 20 mg Admin: 01/22/17 06:32 Dose: 20 mg Admin: 01/21/17 06:54 Dose: 20 mg Admin: 01/20/17 07:05 Dose: 20 mg Admin: 01/19/17 07:55 Dose: 20 mg Ondansetron HCl (Zofran) 4 mg IVPUSH Q4H PRN PRN Reason: Nausea/Vomiting Last Admin: 01/23/17 09:08 Dose: 4 mg Admin: 01/23/17 01:26 Dose: 4 mg Admin: 01/22/17 17:19 Dose: 4 mg Admin: 01/22/17 13:42 Dose: 4 mg Oxycodone HCl (Oxycodone) 10 mg PO Q6H [facility] Last Admin: 01/23/17 10:21 Dose: 10 mg Admin: 01/23/17 04:05 Dose: 10 mg Admin: 01/22/17 21:54 Dose: 10 mg Admin: 01/22/17 16:12 Dose: 10 mg Capecitabine [Xeloda (] 500 Mg) 1 each PO DAILY [facility] Last Admin: 01/23/17 09:55 Dose: 1 each Admin: 01/22/17 08:19 Dose: 1 each Capecitabine [Xeloda (] 500 Mg) 2 each PO BEDTIME [facility] Last Admin: 01/22/17 20:19 Dose: 2 each Admin: 01/21/17 20:59 Dose: 2 each Desvenlafaxine Succinate [Pristiq] 100 Mg 1 each PO DAILY [facility] Last Admin: 01/23/17 14:19 Dose: 1 each Polyethylene Glycol (Miralax) 17 gm PO DAILY PRN PRN Reason: Constipation Last Admin: 01/22/17 12:59 Dose: 17 gm Fluticasone/Salmeterol (Advair Diskus 250-50) 1 puff INH BID [facility] Last Admin: 01/23/17 08:59 Dose: 1 puff Admin: 01/22/17 20:02 Dose: 1 puff Admin: 01/22/17 08:36 Dose: 1 puff Admin: 01/21/17 20:16 Dose: 1 puff Admin: 01/21/17 08:42 Dose: 1 puff Admin: 01/20/17 20:41 Dose: 1 puff Admin: 01/20/17 08:44 Dose: 1 disk Admin: 01/19/17 20:12 Dose: 1 disk Admin: 01/19/17 10:01 Dose: 1 disk Admin: 01/18/17 20:09 Dose: 1 disk Sodium Chloride (Saline Flush) 10 ml FLUSH ASDIRECTED PRN PRN Reason: Keep Vein Open Sodium Chloride (Saline Flush) 2.5 ml FLUSH ASDIRECTED PRN PRN Reason: Keep Vein Open Sucralfate (Carafate) 1 gm PO QID [facility] Last Admin: 01/23/17 12:21 Dose: 1 gm Admin: 01/23/17 06:42 Dose: 1 gm Admin: 01/22/17 23:42 Dose: 1 gm Admin: 01/22/17 18:31 Dose: 1 gm Admin: 01/22/17 12:59 Dose: 1 gm Admin: 01/22/17 06:32 Dose: 1 gm Admin: 01/21/17 23:32 Dose: 1 gm Admin: 01/21/17 18:21 Dose: 1 gm Admin: 01/21/17 11:53 Dose: 1 gm Admin: 01/21/17 05:17 Dose: 1 gm Admin: 01/21/17 00:14 Dose: 1 gm Admin: 01/20/17 17:50 Dose: 1 gm Admin: 01/20/17 11:29 Dose: 1 gm Admin: 01/20/17 07:00 Dose: 1 gm Admin: 01/20/17 00:30 Dose: 1 gm Admin: 01/19/17 20:15 Dose: 1 gm Admin: 01/19/17 11:34 Dose: 1 gm Admin: 01/19/17 05:00 Dose: 1 gm Admin: 01/19/17 00:05 Dose: 1 gm Admin: 01/18/17 17:54 Dose: 1 gm - Assessment Assessment (Free Text/Narrative):: Lung remained expanded after placing CT to underwater seal for a 4 hour trial. - Plan Plan (Free Text/Narrative):: Right chest tube removed without incident. 2 hour post removal CXR shows return of effusion and very tiny amount of SQ air. If patient remains stable she can be discharged. I will need to see her back on 01/30 to remove the other suture. She may shower over the dressing but I would like it to stay on as long as possible. Will sign off. Please reconsult if necessary.
--- NOTE | 2017-01-23 16:44 | CR ---
EXAMINATION: Ultrasound guided right thoracentesis and 2 view chest x-ray HISTORY: Pleural effusion COMPARISON: 01/19/2017 TECHNIQUE: Initial images were obtained of the right chest prior to the procedure. The lungs were no t well visualized. There was a small amount of fluid noted within the right lung base consistent wit h the residual pleural fluid noted on the thoracentesis from the prior day. However the upper lungs were not well visualized. The procedure was again discussed with the patient and risks were discusse d with the patient. Written informed consent was obtained. The area was sterilely prepped and draped . 1% lidocaine was administered for local anesthesia. Using ultrasound guidance a 5 [place] one-step needle was advanced into the right pleural effusion. A syringe was attached to the hub of the needle and a mixture of gas and fluid was withdrawn from the needle. Gas was continually withdrawn from th e needle until predominantly fluid return was noted. This was connected to an evacuated bottle and a pproximately 350 mL of yellow nonbloody fluid was aspirated. The bottle lost its vacuum after withdr awing approximate 700 mL of air. The catheter was withdrawn. The patient otherwise tolerated the pro cedure well. The patient was then brought over for a 2 view chest x-ray. This demonstrates a moderate right pneum othorax with a trace residual right pleural effusion. Scarring and atelectasis is again noted within the left lung base. There is a left-sided homero catheter noted with tip in good position. The findings were discussed with the patient with the need of placing a chest tube. The patient refu sed a chest tube stating, she had a thoracentesis prior to this in [place] which resulted in a michael apsed lung needing a chest tube. Evaluation of prior chest radiographs and CTs demonstrate a chronic pleural effusion to at least June 2016. This may suggest underlying restrictive lung disease. IMPRESSION: 1. Successful ultrasound-guided right thoracentesis which demonstrated air in the pleural cavity. 2. A follow-up chest radiograph demonstrates a moderate right pneumothorax with a trace persistent p leural effusion. 3. The constellation of findings and chronic pleural effusion may suggest restrictive lung disease w ithin the right chest. 4. The patient refused a chest tube.
[2017-01-23] MEDS: HYDROmorphone 2 MG/ML Syringe IVPUSH PRN (17:02)
--- NOTE | 2017-01-23 17:24 | CR ---
EXAM DATE: 01/20/17 PATIENT'S AGE: 56 Patient: KATELYN CARMONA Facility: [place], [place] Site . Site : 1960 Study: XRay Chest [id number]/4/2017 8:32:01 AM Ordering Physician: Jazzy Garcia Final Report: HISTORY: Pneumothorax. Chest tube. Technique: One view portable chest. Comparison: Chest x-ray 01/20/2017. Findings: Right chest tube at the right lung base. No pneumothorax. Low lung volumes with bibasilar atelectasis. Few scattered patchy airspace opacities, unchanged. Abandoned pacer lead with one end projecting over the left upper chest and the other and other end in the distal right SVC. No pleural effusion. No focal airspace consolidation. Cardiomediastinal silhouette is unchanged. Impression: Right chest tube. No pneumothorax. Dictated by Marc Scott MD @ Jan 21 2017 8:57AM (Electronic Signature) Report Signed by Proxy and Original Signed Document filed in the Medical Record. MTDD
--- NOTE | 2017-01-23 18:24 | CR ---
EXAM DATE: 01/20/17 PATIENT'S AGE: 56 Patient: KATELYN CARMONA Facility: [place], [place] Site . Site : 1960 Study: XRay Chest [id number]/2017 8:14:13 AM Ordering Physician: Jazzy Garcia Final Report: HISTORY: Follow-up pneumothorax. Chest tube in place. Technique: One view portable chest. Comparison: Chest x-ray 01/21/2017. Findings: Right chest tube in place now with tip in mid right hemithorax. No pneumothorax. Low lung volumes with bibasilar atelectasis. Abandoned pacer lead , unchanged. Unchanged blunting of left costophrenic angle may be pleural thickening versus small pleural effusion. No right pleural effusion. Cardiomediastinal silhouette is unchanged. Impression: Right chest tube. No pneumothorax. No significant change since 01/21/2017. Dictated by Marc Scott MD @ Jan 22 2017 9:01AM (Electronic Signature) Report Signed by Proxy and Original Signed Document filed in the Medical Record. MTDD
[2017-01-23] MEDS ORDERED: fentaNYL 25 MCG/HR Transdermal Patch TRDERM SCH (19:00)
[2017-01-23] MEDS: LORazepam 0.5 MG Tab PO SCH (21:10)
[2017-01-23] MEDS: Mirtazapine 15 MG Tab PO SCH (21:10)
[2017-01-24] MEDS: Sucralfate 1 GM Tab PO SCH ×5 (00:31→23:24)
[2017-01-24] MEDS: Ondansetron 4 MG/2 ML SDV IVPUSH PRN ×4 (04:43→17:24)
[2017-01-24] MEDS: oxyCODONE 5 MG Tab PO SCH ×4 (04:43→21:46)
[2017-01-24] MEDS: Omeprazole 20 MG Cap.CR PO SCH ×2 (06:26→06:30)
[2017-01-24] MEDS: Tiotropium Inhaler 18 MCG Inhalation Powder Cap Kit of 5 INH SCH (09:03)
[2017-01-24] MEDS: Fluticasone/Salmeterol 250-50 MCG Inhalation Powder 14/Diskus INH SCH ×2 (09:03→20:05)
[2017-01-24] MEDS: FLUoxetine 20 MG Cap PO SCH (10:04)
[2017-01-24] MEDS: Desvenlafaxine Succinate [Pristiq] 100 MG PO SCH (10:05)
[2017-01-24] MEDS ORDERED: Sodium Chloride 0.9% 500 ML IV ONE (10:11)
[2017-01-24] MEDS: Furosemide 20 MG Tab PO SCH (10:12)
[2017-01-24] MEDS: Losartan 50 MG Tab PO SCH (10:12)
[2017-01-24] MEDS: Metoprolol Tartrate 25 MG Tab PO SCH ×2 (10:12→20:57)
[2017-01-24] MEDS: Diltiazem 120 MG Cap.CD PO SCH (10:12)
--- NOTE | 2017-01-24 11:12 | CR ---
EXAMINATION: Two-view chest (PA and Lateral views). HISTORY: Pleural effusion. FINDINGS: The trachea is midline. The heart is normal in size. Left basilar atelectasis and/or infiltrate is a gain noted is a trace left pleural effusion. There is a hiatal hernia. There is a moderate right hyd ropneumothorax slightly increased from the day prior. Overlying subcutaneous emphysema is noted tommie g the right thorax. Left portacatheter again noted. Osseous structures appear unremarkable. IMPRESSION: 1. Moderate right hydropneumothorax mildly increased from the day prior. 2. Left basilar atelectasis and/or infiltrate with a trace pleural effusion, unchanged.
[2017-01-24] MEDS: Enoxaparin 40 MG/0.4 ML Syringe SUBCUT SCH (12:36)
--- NOTE | 2017-01-24 14:55 | PCM.SN ---
- Free Text/Narrative Note: I was consulted today on Lovely Godinez do to an increase in her right hydropneumothorax. The patient was previously cared for by my partner Dr. Tidwell. She had a chest tube placed after having a pleurocentesis for malignant effusion complicated by pneumothorax. The patient had the chest tube removed and Dr. Tidwell had signed off. Subsequent chest x-rays have shown reaccumulation of fluid and air. Given this is a malignant process I believe the patient needs a more definitive procedure performed. This would best be done by a thoracic surgeon. In order to facilitate transfer the patient should have a new chest tube placed. I discussed having a small chest tube/pigtail catheter placed under imaging guidance with our radiologist Dr. Ch. Given the subcutaneous air around her chest wall he will be unable to perform this under ultrasound and will most likely place it using CT guidance. If unable to perform this I will place a chest tube bedside. Once this is in place the patient will then be safe to transfer. I discussed this plan with the hospitalist, Dr. Tidwell, and the patient. All are in agreement for placement of an chest tube and transfer for more definitive management to be decided by a thoracic surgeon.
--- NOTE | 2017-01-24 17:55 | PCM.PN ---
- General Info Date of Service: 01/24/17 Subjective Update: Patient vomited last night for 1 h and also in am . She states she has chronic vomiting secondary to her Chemotherapy. In am her Bp was in the 80' and Bp meds were on hold. repeat chest X ray shoed mild increase moderate Rt hydropneumothorax and DR Nolen was consulted . She dw Dr. Tidwell and recommended patient has a chest tube here by Ir and to be transferred afterwards to another hospital with CT surgeon where she can have a pleurodex catheter or pleurodesis. DW Dr. Osvaldo Bartlett and he accepted patient at [facility] , patient to be transferred there tomorrow.Will need to discuss this with the hospitalist. Patient received a bolus of 500 Ns in am and her Bp normalized . Also ondasetron was increased to 8 mg iv q 4h prn. Functional Status: Reports: pain controlled - Review of Systems General: Reports: no symptoms HEENT: Reports: no symptoms Pulmonary: Reports: no symptoms Cardiovascular: Reports: other Gastrointestinal: Reports: Nausea, Vomiting Genitourinary: Reports: no symptoms Musculoskeletal: Reports: no symptoms Skin: Reports: no symptoms Neurological: Reports: no symptoms Psychiatric: Reports: no symptoms - Patient Data Vitals - most recent: Last Vital Signs Temp 97.5 F 01/24/17 12:00 Pulse 96 01/24/17 12:00 Resp 16 01/24/17 12:00 BP 103/61 01/24/17 12:00 Pulse Ox 92 L 01/24/17 12:00 Weight - most recent: 169 lb 11.2 oz I&O - last 24 hours: Intake & Output 01/24/17 01/24/17 01/24/17 06:59 14:59 22:59 Intake Total 700 Output Total 350 Balance 350 Lab Results last 24 hrs: Laboratory Results - last 24 hr 01/24/17 01/24/17 01/24/17 Range/Units 08:58 08:58 08:58 WBC 6.98 (4.0-11.0) K/uL RBC 5.65 (4.30-5.90) M/uL Hgb 14.9 (12.0-16.0) g/dL Hct 49.2 H (36.0-46.0) % MCV 87.1 (80.0-98.0) fL MCH 26.4 L (27.0-32.0) pg MCHC 30.3 L (31.0-37.0) g/dL RDW Std Deviation 55.4 (28.0-62.0) fl RDW Coeff of George 18 H (11.0-15.0) % Plt Count 63 L (150-400) K/uL MPV 10.40 (7.40-12.00) fL Nucleated RBC % 0.0 /100WBC Nucleated RBCs # 0 K/uL Smear Path Review ESR 1 (0-29) mm/hr Lactate (0.20-2.00) mmol/L Sodium 137 (136-146) mmol/L Potassium 4.3 (3.5-5.1) mmol/L Chloride 100 (98-110) mmol/L Carbon Dioxide 27 (21-31) mmol/L BUN 27 H (6.0-23.0) mg/dL Creatinine 1.0 (0.6-1.5) mg/dL Est Cr Clr Drug Dosing 49.68 mL/min Estimated GFR (MDRD) 57.4 ml/min Glucose 122 H (60-110) mg/dL Calcium 8.1 L (8.8-10.8) mg/dL C-Reactive Protein (0.0-0.5) mg/dL 01/24/17 01/24/17 01/24/17 Range/Units 08:58 12:49 14:00 WBC (4.0-11.0) K/uL RBC (4.30-5.90) M/uL Hgb (12.0-16.0) g/dL Hct (36.0-46.0) % MCV (80.0-98.0) fL MCH (27.0-32.0) pg MCHC (31.0-37.0) g/dL RDW Std Deviation (28.0-62.0) fl RDW Coeff of George (11.0-15.0) % Plt Count (150-400) K/uL MPV (7.40-12.00) fL Nucleated RBC % /100WBC Nucleated RBCs # K/uL Smear Path Review SENT TO PATHOLOGY ESR (0-29) mm/hr Lactate 1.0 (0.20-2.00) mmol/L Sodium (136-146) mmol/L Potassium (3.5-5.1) mmol/L Chloride (98-110) mmol/L Carbon Dioxide (21-31) mmol/L BUN (6.0-23.0) mg/dL Creatinine (0.6-1.5) mg/dL Est Cr Clr Drug Dosing mL/min Estimated GFR (MDRD) ml/min Glucose (60-110) mg/dL Calcium (8.8-10.8) mg/dL C-Reactive Protein 1.46 H (0.0-0.5) mg/dL Med Orders - Current: Current Medications Clonazepam (Klonopin) 0.5 mg PO TID PRN PRN Reason: Anxiety Last Admin: 01/19/17 20:32 Dose: 0.5 mg Fentanyl (Duragesic) 25 mcg TRDERM Q72H [facility] Fluoxetine HCl (Prozac) 20 mg PO DAILY [facility] Last Admin: 01/24/17 10:04 Dose: 20 mg Furosemide (Lasix) 20 mg PO DAILY [facility] Last Admin: 01/24/17 10:12 Dose: Not Given Hydromorphone HCl (Dilaudid) 0.5 mg IVPUSH Q2H PRN PRN Reason: Pain Last Admin: 01/23/17 17:02 Dose: 0.5 mg Lorazepam (Ativan) 0.5 mg PO BEDTIME [facility] Last Admin: 01/23/17 21:10 Dose: 0.5 mg Losartan Potassium (Cozaar) 50 mg PO DAILY [facility] Last Admin: 01/24/17 10:12 Dose: Not Given Metoprolol Tartrate (Lopressor) 25 mg PO Q12HR [facility] Last Admin: 01/24/17 10:12 Dose: Not Given Mirtazapine (Remeron) 15 mg PO BEDTIME [facility] Last Admin: 01/23/17 21:10 Dose: 15 mg Miscellaneous Information (Remove Patch) 1 ea TRDERM Q72H [facility] Omeprazole (Omeprazole) 20 mg PO ACBREAKFAST [facility] Last Admin: 01/24/17 06:30 Dose: 20 mg Ondansetron HCl (Zofran) 8 mg IVPUSH Q4H PRN PRN Reason: Nausea/Vomiting Last Admin: 01/24/17 17:24 Dose: 8 mg Oxycodone HCl (Oxycodone) 10 mg PO Q6H [facility] Last Admin: 01/24/17 17:22 Dose: Not Given Capecitabine [Xeloda (] 500 Mg) 1 each PO DAILY [facility] Last Admin: 01/24/17 10:04 Dose: 1 each Capecitabine [Xeloda (] 500 Mg) 2 each PO BEDTIME [facility] Last Admin: 01/23/17 21:12 Dose: 2 each Desvenlafaxine Succinate [Pristiq] 100 Mg 1 each PO DAILY [facility] Last Admin: 01/24/17 10:05 Dose: 1 each Polyethylene Glycol (Miralax) 17 gm PO DAILY PRN PRN Reason: Constipation Last Admin: 01/22/17 12:59 Dose: 17 gm Fluticasone/Salmeterol (Advair Diskus 250-50) 1 puff INH BID [facility] Last Admin: 01/24/17 09:03 Dose: 1 puff Sodium Chloride (Saline Flush) 10 ml FLUSH ASDIRECTED PRN PRN Reason: Keep Vein Open Sodium Chloride (Saline Flush) 2.5 ml FLUSH ASDIRECTED PRN PRN Reason: Keep Vein Open Sucralfate (Carafate) 1 gm PO QID [facility] Last Admin: 01/24/17 17:23 Dose: 1 gm Tiotropium Varney (Spiriva Handihaler) 18 mcg INH QAM [facility] Last Admin: 01/24/17 09:03 Dose: 1 cap Discontinued Medications Acetaminophen/Hydrocodone Bitart (Pyrites 325-5 Mg) 1 - 2 tab PO Q4H PRN PRN Reason: Pain Last Admin: 01/22/17 11:49 Dose: 2 tab Albuterol/Ipratropium (Duoneb 3.0-0.5 Mg/3 Ml) 3 ml NEB ONETIME ONE Stop: 01/18/17 14:39 Last Admin: 01/18/17 14:46 Dose: 3 ml Albuterol/Ipratropium (Duoneb 3.0-0.5 Mg/3 Ml) Confirm Administered Dose 3 ml .ROUTE .STK-MED ONE Stop: 01/18/17 14:43 Last Admin: 01/18/17 15:27 Dose: Not Given Albuterol/Ipratropium (Duoneb 3.0-0.5 Mg/3 Ml) 3 ml NEB Q4HRRT PRN PRN Reason: Wheezing Last Admin: 01/19/17 16:40 Dose: 3 ml Albuterol/Ipratropium (Duoneb 3.0-0.5 Mg/3 Ml) Confirm Administered Dose 3 ml .ROUTE .STK-MED ONE Stop: 01/19/17 05:27 Last Admin: 01/19/17 05:30 Dose: 3 ml Bupivacaine HCl (Sensorcaine-Mpf 0.5%) Confirm Administered Dose 10 ml .ROUTE .STK-MED ONE Stop: 01/20/17 18:59 Diltiazem HCl (Cardizem Cd) 120 mg PO DAILY [facility] Last Admin: 01/24/17 10:12 Dose: Not Given Enoxaparin Sodium (Lovenox) 40 mg SUBCUT Q24H [facility] Last Admin: 01/23/17 13:11 Dose: 40 mg Fentanyl (Duragesic) 25 mcg TRDERM Q72H [facility] Last Admin: 01/21/17 18:21 Dose: 25 mcg Fentanyl (Duragesic) 25 mcg TRDERM Q72H [facility] Ferrous Sulfate (Ferrous Sulfate) 325 mg PO TID [facility] Last Admin: 01/19/17 05:00 Dose: 325 mg Fluoxetine HCl (Prozac) 20 mg PO BEDTIME [facility] Last Admin: 01/21/17 21:03 Dose: 20 mg Sodium Chloride (Normal Saline) 500 mls @ 999 mls/hr IV STAT [facility] Last Admin: 01/18/17 15:43 Dose: 80 mls/hr Levofloxacin/Dextrose 750 mg/ (Premix) 150 mls @ 100 mls/hr IV ONETIME ONE Stop: 01/18/17 18:29 Last Admin: 01/18/17 18:12 Dose: Not Given Sodium Chloride (Sodium Chloride 0.45%) 1,000 mls @ 75 mls/hr IV ASDIRECTED [facility] Last Admin: 01/23/17 11:21 Dose: 75 mls/hr Sodium Chloride (Normal Saline) 500 mls @ 999 mls/hr IV ONETIME ONE Stop: 01/24/17 10:41 Last Admin: 01/24/17 10:29 Dose: 999 mls/hr Iopamidol (Isovue-370 (76%)) 50 ml IV ONETIME STA Stop: 01/18/17 15:22 Last Admin: 01/18/17 18:03 Dose: Not Given Letrozole (Femara) 2.5 mg PO DAILY [facility] Last Admin: 01/23/17 09:57 Dose: 2.5 mg Lidocaine HCl (Xylocaine 1%) Confirm Administered Dose 50 ml .ROUTE .STK-MED ONE Stop: 01/20/17 18:59 Lisinopril (Prinivil) 10 mg PO DAILY [facility] Last Admin: 01/22/17 08:18 Dose: 10 mg Methylprednisolone Sodium Succinate (Solu-Medrol) 125 mg IVPUSH ONETIME ONE Stop: 01/18/17 16:00 Last Admin: 01/18/17 16:21 Dose: 125 mg Methylprednisolone Sodium Succinate (Solu-Medrol) 40 mg IVPUSH Q6H [facility] Last Admin: 01/22/17 10:00 Dose: 40 mg Mirtazapine (Remeron) 15 mg PO BEDTIME [facility] Last Admin: 01/21/17 21:03 Dose: 15 mg Miscellaneous Information (Remove Patch) 1 ea TRDERM Q72H [facility] Last Admin: 01/21/17 18:22 Dose: 1 ea Miscellaneous Information (Remove Patch) 1 ea TRDERM Q72H [facility] Morphine Sulfate (Morphine) 2 mg IVPUSH Q2H PRN PRN Reason: Pain (severe 7-10) Stop: 01/19/17 16:32 Morphine Sulfate (Morphine) Confirm Administered Dose 4 mg .ROUTE .STK-MED ONE Stop: 01/20/17 18:56 Last Admin: 01/20/17 20:31 Dose: Not Given Non-Formulary Medication (Fentanyl [Fentanyl]) 1 patch TD Q72H [facility] Last Admin: 01/18/17 19:14 Dose: Not Given Non-Formulary Medication (Capecitabine [Capecitabine]) 1,000 mg PO BEDTIME [facility] Ondansetron HCl (Zofran Odt) 8 mg PO Q8H [facility] Last Admin: 01/20/17 16:18 Dose: 8 mg Ondansetron HCl (Zofran) 4 mg IVPUSH Q4H PRN PRN Reason: Nausea/Vomiting Last Admin: 01/24/17 10:19 Dose: 4 mg Oxycodone HCl (Oxycodone) 10 mg PO Q6H [facility] Last Admin: 01/22/17 13:41 Dose: Not Given Capecitabine [Xeloda (] 3 Tab) 3 each PO BID [facility] Last Admin: 01/21/17 11:52 Dose: 1 each Flurazepam Hcl [ Flurazepam Hcl] 30 Mg 1 each PO BEDTIME [facility] Last Admin: 01/21/17 21:05 Dose: Not Given Exemestane 25 Mg 1 each PO DAILY [facility] Last Admin: 01/23/17 09:59 Dose: Not Given Sodium Chloride (Saline Flush) 10 ml FLUSH ASDIRECTED PRN PRN Reason: Keep Vein Open Sodium Chloride (Saline Flush) 2.5 ml FLUSH ASDIRECTED PRN PRN Reason: Keep Vein Open Tiotropium Varney (Spiriva Handihaler) 18 mcg INH DAILY [facility] - Exam Quality Assessment: supplemental oxygen (2.5 L) General: alert, oriented HEENT: Pupils equal, Pupils reactive, EOMI, Mucous membr. moist/pink Neck: supple Lungs: Normal respiratory effort, Other (Decreased breath sounds rt lower lung) Cardiovascular: regular rate, regular rhythm Abdomen: bowel sounds present, soft, no tenderness, no distension Extremities: no edema Skin: warm, dry, intact Wound/Incisions: healing well Neurological: no new focal deficit Psy/Mental Status: alert, normal affect, normal mood - Problem List & Annotations (1) Metastatic breast cancer SNOMED Code(s): 274761720 Code(s): C50.919 - MALIGNANT NEOPLASM OF UNSP SITE OF UNSPECIFIED FEMALE BREAST; C79.9 - SECONDARY MALIGNANT NEOPLASM OF UNSPECIFIED SITE Status: Acute Priority: Medium Current Visit: Yes (2) COPD with exacerbation SNOMED Code(s): 729331348, 938289282 Code(s): J44.1 - CHRONIC OBSTRUCTIVE PULMONARY DISEASE W (ACUTE) EXACERBATION Status: Acute Priority: Medium Current Visit: Yes (3) Recurrent right pleural effusion SNOMED Code(s): 48200285 Code(s): J90 - PLEURAL EFFUSION, NOT ELSEWHERE CLASSIFIED Status: Acute Priority: Medium Current Visit: Yes (4) Depression with anxiety SNOMED Code(s): 114187358 Code(s): F41.8 - OTHER SPECIFIED ANXIETY DISORDERS Status: Acute Priority : Medium Current Visit: Yes (5) Pneumothorax on right SNOMED Code(s): 934786492 Code(s): J93.9 - PNEUMOTHORAX, UNSPECIFIED Status: Acute Current Visit: Yes (6) Nausea & vomiting SNOMED Code(s): 41548849 Code(s): R11.2 - NAUSEA WITH VOMITING, UNSPECIFIED Status: Acute Current Visit: Yes (7) Hypotension SNOMED Code(s): 33808621 Code(s): I95.9 - HYPOTENSION, UNSPECIFIED Status: Acute Current Visit: Yes - Problem List Review Problem List Initiated/Reviewed/Updated: Yes - My Orders Last 24 Hours: My Active Orders 01/23/17 20:04 RT Post Treatment Assessment [RC] Click To Edit RT Pre-Treatment Assessment [RC] Click To Edit 01/24/17 09:00 Tiotropium [Spiriva HandiHaler] 18 mcg INH QAM 01/24/17 12:37 Ondansetron [Zofran] 8 mg IVPUSH Q4H PRN 01/24/17 15:09 Drain Pleura Rt [CT] Routine Drain Pleural Insert [CT] Routine 01/24/17 18:45 Remove Patch 1 ea TRDERM Q72H 01/24/17 19:00 fentaNYL [Duragesic] 25 mcg TRDERM Q72H - Assessment Assessment:: A/p Copd exac - resolved , cont neb treatment Rt pleural effusions / pneumothorax - s/p chest tube today by Ir , connected to pleurovac. For transfer tomorrow to [facility] to have the pleurodex catheter with Dr. Joel Bartlett. Hypotension secondary to dehydration and third spacing ( sec. to fluid accumulation in the rt pleural space), iv fluids Bp meds were on hold in am N and V sec to chemotherapy- ondasetron increased to 8 mg iv q 4h prn DVT prof : scd Depression/anxiety - fluoxetine 20 mg po daily , remeron 15 mg po q hs , clonazepam 0.5 mg po TID prn Metastatic breast cancer - continue paleative chemotherapy , f/up oncology sinus tachycardia - resolved .
[2017-01-24] MEDS ORDERED: fentaNYL 25 MCG/HR Transdermal Patch TRDERM SCH (19:00)
[2017-01-24] MEDS: Mirtazapine 15 MG Tab PO SCH (20:56)
[2017-01-24] MEDS: LORazepam 0.5 MG Tab PO SCH (20:57)
[2017-01-24] MEDS: HYDROmorphone 2 MG/ML Syringe IVPUSH PRN (21:00)
[2017-01-24] MEDS: Sodium Chloride 0.45% 1,000 ML IV SCH (21:39)
[2017-01-25] MEDS: oxyCODONE 5 MG Tab PO SCH ×2 (03:47→09:40)
[2017-01-25 05:20] LABS: CHLORIDE,CL 101 mmol/L (98-110); SODIUM,NA 139 mmol/L (136-146)
[2017-01-25] MEDS: Sucralfate 1 GM Tab PO SCH ×2 (06:48→12:36)
[2017-01-25] MEDS: Omeprazole 20 MG Cap.CR PO SCH (06:48)
[2017-01-25] MEDS: Sodium Chloride 0.45% 1,000 ML IV SCH (07:27)
[2017-01-25 08:09] VITALS: BP 125/71
[2017-01-25] MEDS: Tiotropium Inhaler 18 MCG Inhalation Powder Cap Kit of 5 INH SCH (08:16)
[2017-01-25] MEDS: Fluticasone/Salmeterol 250-50 MCG Inhalation Powder 14/Diskus INH SCH (08:18)
[2017-01-25] MEDS: Ondansetron 4 MG/2 ML SDV IVPUSH PRN (09:40)
[2017-01-25] MEDS: Metoprolol Tartrate 25 MG Tab PO SCH (09:41)
[2017-01-25] MEDS: Losartan 50 MG Tab PO SCH (09:41)
[2017-01-25] MEDS: Furosemide 20 MG Tab PO SCH (09:41)
[2017-01-25] MEDS: FLUoxetine 20 MG Cap PO SCH (09:41)
[2017-01-25] MEDS: Desvenlafaxine Succinate [Pristiq] 100 MG PO SCH (09:42)
--- NOTE | 2017-01-25 16:45 | PCM.SN ---
- Free Text/Narrative Note: [id number]
--- NOTE | 2017-01-26 07:57 | DISCH ---
DATE OF DISCHARGE: 01/25/2017 PRIMARY CARE PHYSICIAN: None PCP CHIEF COMPLAINT: Shortness of breath. HISTORY OF PRESENT ILLNESS: The patient is a 56-year-old female with history of stage IV lung cancer diagnosed in 2009 with metastasis to the liver, lungs, and bones, presented to the hospital because of shortness of breath. The patient was supposed to go to her appointment with oncologist, and this patient since 2009 is on chemotherapy. She never had any surgeries for breast cancer. PAST MEDICAL HISTORY: She has depression, anxiety, GERD, COPD, hypertension. PAST SURGICAL HISTORY: None. ALLERGIES: The patient is allergic to penicillin, she gets rash; and to morphine, she has adverse reaction to morphine. Also per EMR, the patient is allergic to zolpidem. HOSPITAL COURSE: The patient was admitted to the hospital with COPD exacerbation and large pleural effusion in right lung and she had thoracentesis done on January 19, and about 1 L of fluid was removed, which was clear. The next day, the patient was supposed to have a followup thoracentesis and she developed pneumothorax. It was believed that due to her chronic pleural effusions, her lung did not expand. The patient had a CT tube place by the surgery and she had suctioning with Pleur - evac for about 2 days and half. Her lung expanded and the chest tube was removed, but she still had moderate hydropneumothorax that slowly increased the next day and was recommended the patient to be transfer to another hospital where she could be seen by cardiothoracic surgeon to have pleurodesis or PleurX catheter. The patient was discussed with Dr. Joel Bartlett at [facility] in [place], who accepted the patient and recommended the patient to be transferred today there. I have discussed with the hospitalist Dr. Lantigua, who accepted the patient and the patient was transported via ambulance to [facility]. During hospital stay, the patient received steroids. She received IV Solu-Medrol and her wheezing improved and Solu-Medrol was discontinued. She had tachycardia secondary to her respiratory distress. Also, the patient did not bring the list of her medication. Her tachycardia resolved. Also wheezing resolved, but today the patient had wheezing again. She also had nausea and vomiting secondary to her chemotherapy and her ondansetron was increased to 8 mg IV q.4 hours and IV fluids were increased secondary to her hypotension. It was believed that her hypotension was due to dehydration which was caused by third spacing of fluids, due to hydropneumothorax right, and also was due to vomiting. Vital signs at discharge, her temperature was 97.1, pulse rate 100, blood pressure 125/71, oxygen saturation was 91%, on oxygen flow rate on 2 L nasal cannula. The patient had yesterday chest tube placed again and it was connected to Pleuro-vac as per recommendation of CT surgeon Dr. Bartlett and today the patient was transferred with the chest tube and Pleur-vac. PHYSICAL EXAMINATION: HEENT: Head is atraumatic and normocephalic. Pupils are equally reactive to light. NECK: Supple. No thyromegaly. No lymphadenopathy. HEART: S1, S2. Regular rhythm and rate. LUNGS: Bilateral wheezing, left breast tumor. ABDOMEN: Soft, nontender, positive bowel sounds. The patient also had chest tube in right lung connected to Pleur-evac. There are 500 mL sanguinolent pleural fluid. EXTREMITIES: No edema. DISCHARGE DIAGNOSES: Right moderate hydropneumothorax, chronic obstructive pulmonary exacerbation, stage IV metastatic breast cancer, nausea and vomiting secondary to chemotherapy, depression and anxiety, hypotension secondary to dehydration, sinus tachycardia DISCHARGE DIET: Heart healthy diet. ACTIVITIES: As tolerated. The patient may shower. RAYSHAWN / [place] /[id number] MTDD
--- NOTE | 2017-01-26 08:27 | CT ---
EXAMINATION: CT guided right pleural drain placement HISTORY: Recurrent hydropneumothorax COMPARISON: Chest x-ray from the same day TECHNIQUE: The procedure, risks, and benefits were discussed with the patient. Consent was obtained. The patient was placed prone on the fluoroscopic table. An adequate location was identified within the mid right posterior chest along the superior side of the selected rib space. There was sterilel y prepped and draped. 1% lidocaine was administered for local anesthesia. Using CT guidance a 21-gau ge needle was advanced into the pleural space confirmed with CT imaging. An 018 wire was then advanc ed. A small caliber dilator was placed over the wire and subsequently exchanged for an 038 wire. The space was dilated up to 8 [place] and an 8 [place]an pigtail catheter was then advanced into the pleura l space. The pigtail was secured. The majority of the air was aspirated manually. The pigtail was se cured using Tegaderm and the pigtail was locked into position. The tube was connected to a Heimlich device. The patient tolerated the procedure well. There are no immediate complications. IMPRESSION: 1. Successful CT-guided right pleural drain placement.
--- NOTE | 2017-01-26 08:27 | CT ---
EXAMINATION: CT guided right pleural drain placement HISTORY: Recurrent hydropneumothorax COMPARISON: Chest x-ray from the same day TECHNIQUE: The procedure, risks, and benefits were discussed with the patient. Consent was obtained. The patient was placed prone on the fluoroscopic table. An adequate location was identified within the mid right posterior chest along the superior side of the selected rib space. There was sterilel y prepped and draped. 1% lidocaine was administered for local anesthesia. Using CT guidance a 21-gau ge needle was advanced into the pleural space confirmed with CT imaging. An 018 wire was then advanc ed. A small caliber dilator was placed over the wire and subsequently exchanged for an 038 wire. The space was dilated up to 8 Serbian and an 8 Serbian pigtail catheter was then advanced into the pleura l space. The pigtail was secured. The majority of the air was aspirated manually. The pigtail was se cured using Tegaderm and the pigtail was locked into position. The tube was connected to a Heimlich device. The patient tolerated the procedure well. There are no immediate complications. IMPRESSION: 1. Successful CT-guided right pleural drain placement.
== END 2017-01-25 10:00 | DRG 191 ==
LOC: MW.ED 14:26 → MW.ICU 16:00 → OBSVTOIN 16:00 → MW.MS 01-19 22:29 → INTOOBSV 01-20 18:34 → OBSVTOIN 01-20 18:34 → MW.MS 01-20 18:37
PROVIDERS: ADMIT Internal Medicine; ATTEND Internal Medicine
PROC: 0W993ZZ Drainage of Right Pleural Cavity, Percutaneous Approach (ICD-10-PCS; 2017-01-19)
PROC: 0W9900Z Drainage of Right Pleural Cavity with Drainage Device, Open Approach (ICD-10-PCS; principal; 2017-01-20)
DX: J44.1 Chronic obstructive pulmonary disease with (acute) exacerbation (principal); J90 Pleural effusion, not elsewhere classified; J94.2 Hemothorax; C78.7 Secondary malignant neoplasm of liver and intrahepatic bile duct; C78.02 Secondary malignant neoplasm of left lung; Z79.899 Other long term (current) drug therapy; C78.01 Secondary malignant neoplasm of right lung; C79.51 Secondary malignant neoplasm of bone; C50.912 Malignant neoplasm of unspecified site of left female breast; R00.0 Tachycardia, unspecified; R06.2 Wheezing; I95.9 Hypotension, unspecified; E86.0 Dehydration; R11.2 Nausea with vomiting, unspecified; F41.8 Other specified anxiety disorders; K21.9 Gastro-esophageal reflux disease without esophagitis; K44.9 Diaphragmatic hernia without obstruction or gangrene; I10 Essential (primary) hypertension; Z88.0 Allergy status to penicillin; Z88.5 Allergy status to narcotic agent; Z88.8 Allergy status to other drugs, medicaments and biological substances; Z87.891 Personal history of nicotine dependence; Z66 Do not resuscitate
CPT/HCPCS: 36415; 80053; 83880; 84484; 85027; 85610; 87804 ×2; 93005; 94664; 96376; 99285; J7040; 32551; 32551-RT; 32555; 71010; 71010-26; 71020; 71020-26; 71275; 71275-26; 75989; 75989-26-RT; 80048; 82728; 83605; 83615; 83735; 84157; 85025; 85652; 86140; 88104; 89050; 94640; 96374; 97161-GP; A9270-GY; G0378; J1170; J1650; J1956; J2405; J2920; J2930; J7030